=== PATIENT | male | born 1935 | race Caucasian/White ===

== ENCOUNTER → 2018-06-11 14:33 | Outpatient (CLI) | payer MEDICARE, OTHER, SELFPAY ==
--- NOTE | 2018-06-11 14:35 | DI.RAD.S_ITS ---
PROCEDURE: XR CHEST 2V INDICATIONS: cough TECHNIQUE: 2 views of the chest were acquired. COMPARISON: [facility], , CHEST 2 VIEW, 08/05/2012, 13:06. FINDINGS: Surgical changes and devices: Postoperative changes of the lumbar spine are not completely included or adequately evaluated. Lungs and pleura: There is a moderate-sized area of consolidation identified within the left lung base. This appears new since the prior study. No lobar consolidation, large effusion, or pneumothorax is evident. Mediastinum: Mediastinal contours are normal. Heart size is normal. Bones and chest wall: No suspicious bony abnormalities. Degenerative changes of the shoulders and spine are not well characterized. Soft tissues appear unremarkable. IMPRESSION: Left lower lobe pneumonia versus atelectasis. Dictated by: Andrzej Albarado M.D. on 06/11/2018 at 13:47 Approved by: Andrzej Albarado M.D. on 06/11/2018 at 13:48
== END ==
PROVIDERS: Family Provider Family Medicine; PCP Family Medicine; Visit Provider Physician Assistant
DX: R05 Cough (principal)
CPT/HCPCS: 71046

== ENCOUNTER 2018-11-17 07:54 | Emergency (ER) | payer MEDICARE, OTHER, SELFPAY ==
[2018-11-17] VITALS (11 sets, daily range): BP systolic 56–151; BP diastolic 34–77; PULSE 32–97; RESP 12–21; TEMP 36.6; O2SAT 93–100; BMI 22.4
--- NOTE | 2018-11-17 07:56 | ED.CHESTPAIN ---
HPI - Chest Pain General Chief Complaint: Chest Pain Stated Complaint: States he thinks he is having a heart attack Time Seen by Provider: 11/17/18 07:55 Source: patient and family Mode of arrival: ambulatory Limitations: no limitations History of Present Illness HPI narrative: 83-year-old male nonsmoker with history of left bundle branch block and left rotator cuff trouble presents with left anterior chest pain that radiates into his left arm that started while at rest 65 minutes prior to his arrival. He denies provocation or palliation. He states he took a full-dose aspirin but no other medications. He denies associated symptoms such as dizziness, weakness or lightheadedness. He denies diaphoresis, nausea or vomiting nor worsening with exertion. At maximum his pain was 10/10 and pressure-like, currently he is experiencing 5/10 discomfort. He denies any trouble with exertional discomfort or increasing fatigue lately. He mowed the lawn/meadow for 5 hours yesterday and went to bed feeling in his normal state of health. MD complaint: chest pain Onset (ago): minute(s) Duration: constant Onset: during rest Pain location: left chest Severity: severe Severity scale (1-10): 10 Quality: tightness Pain radiation: LUE Relieving factors: nothing Exacerbating factors: nothing Treatments prior to arrival chest pain: aspirin Related Data Home Medications Medication Instructions Recorded Confirmed allopurinol 100 mg PO DAILY #0 07/28/12 11/17/18 B Complex 1 tab PO DAILY #0 08/03/12 11/17/18 Vitamin C 1 tab PO DAILY #0 08/03/12 11/17/18 Vitamin D3 1 cap PO DAILY #0 08/03/12 11/17/18 omeprazole 40 mg PO DAILY #0 03/19/16 11/17/18 acetaminophen 500 mg PO PRN PRN #0 03/02/17 11/17/18 multivitamin [Multiple Vitamins] 1 tab PO DAILY #0 03/02/17 11/17/18 Allergies Allergy/AdvReac Type Severity Reaction Status Date / Time Sulfa (Sulfonamide Allergy Unknown RASH Verified 11/17/18 08:13 Antibiotics) trimethoprim Allergy Unknown RASH Verified 11/17/18 08:13 Review of Systems Constitutional Denies chills, Denies fever(s), Denies lethargy and Denies weakness Eyes Denies change in vision, Denies eye discharge, Denies irritation and Denies loss of vision ENT Ears, Nose, Mouth, and Throat: Denies change in voice, Denies neck pain and Denies sore throat Cardiovascular Reports chest pain, Denies irregular heart rhythm, Denies lightheadedness, Denies palpitations, Denies dyspnea, Denies dyspnea on exertion and Denies orthopnea Respiratory Denies cough, Denies dyspnea, Denies dyspnea on exertion and Denies wheezing Gastrointestinal Gastrointestinal: Denies abdominal pain, Denies change in bowel habits, Denies diarrhea, Denies nausea and Denies vomiting Genitourinary Denies hematuria, Denies flank pain, Denies urinary incontinence and Denies urinary urgency Musculoskeletal Denies neck pain Integumentary/Breasts Denies pruritus, Denies erythema, Denies rash and Denies wounds Neurologic Denies confusion, Denies loss of vision and Denies weakness Psychiatric Denies anxiety, Denies confusion, Denies depression, Denies homicidal ideation and Denies suicidal ideation Endocrine Denies palpitations Hematologic/Lymphatic Denies easy bruising Allergic/Immunologic Denies wheezing PFSH Social History Smoking Status: Never smoker Social History Smoking Status: Never smoker Exam Narrative Exam Narrative: GENERAL: 83-year-old male appears stated age, not obviously in any significant distress. HEAD: Atraumatic. Normocephalic. No temporal or scalp tenderness. EYES: Pupils equal round and reactive. Extraocular motions intact. No scleral icterus. No injection or drainage. ENT: Nose without bleeding, purulent drainage or septal hematoma. Throat without erythema, tonsillar hypertrophy or exudate. Uvula midline. Airway patent. NECK: Trachea midline. No JVD or lymphadenopathy. Supple, nontender, no meningeal signs. CARDIOVASCULAR: No worsening with palpation or use of left upper extremity Bradycardic but regular rhythm without murmurs, gallops, or rubs. RESPIRATORY: Clear to auscultation. Breath sounds equal bilaterally. No wheezes, rales, or rhonchi. GASTROINTESTINAL: Abdomen soft, non-tender, nondistended. No hepato-splenomegaly, or palpable masses. No guarding. EXTREMITIES: No clubbing, cyanosis, or edema. No joint tenderness, effusion, or edema noted. BACK: Nontender without deformity or crepitance. No flank tenderness. NEURO: AOx3. SKIN: No rash or erythema. Initial Vital Signs Initial Vital Signs: Vital Signs Temperature 98 F 11/17/18 07:54 Pulse Rate 60 11/17/18 07:54 Respiratory Rate 17 11/17/18 07:54 Blood Pressure 151/77 H 11/17/18 07:54 Pulse Oximetry 96 11/17/18 07:54 Course Orders Ordered: ED Orders 11/17/18 05:00 Hemoglobin and Hematocrit DAILY 11/17/18 07:59 EKG-12 Lead Stat 11/17/18 08:03 XR chest 1V Stat 11/17/18 08:05 B Type Natriuretic Peptide Stat Complete Blood Count AUTO DIFF Stat Comprehensive Metabolic Panel Stat Lipase Stat Partial Thromboplastin Time Stat Troponin & CK Cardiac Panel Stat 11/17/18 08:58 EKG-12 Lead Routine Discontinued Medications Atorvastatin Calcium (Lipitor) 40 mg PO NOW ONE Stop: 11/17/18 10:48 Last Admin: 11/17/18 11:00 Dose: 40 mg Atropine Sulfate (Atropine) 0.5 mg IV NOW ONE Stop: 11/17/18 10:50 Last Admin: 11/17/18 08:28 Dose: 0.5 mg Heparin Sodium (Porcine) (Heparin) 4,000 unit IV NOW ONE Stop: 11/17/18 09:22 Last Admin: 11/17/18 09:41 Dose: 4,000 unit Sodium Chloride (Normal Saline 0.9%) 1,000 mls @ 150 mls/hr IV CONT GEORGE Last Infusion: 11/17/18 11:05 Dose: 150 mls/hr Admin: 11/17/18 08:20 Dose: 150 mls/hr Heparin Sodium/Dextrose (Heparin Drip) 25,000 unit in 500 mls @ 17.527 mls/hr IV CONT GEORGE; Protocol Last Admin: 11/17/18 09:42 Dose: 12 units/kg/hr, 17.527 mls/hr Nitroglycerin (Nitrostat) 0.4 mg SL [id number] PRN PRN Reason: Pain, Severe (7-10) Last Admin: 11/17/18 08:19 Dose: 0.4 mg Reevaluation(s) Reevaluation #1: called to see patient after NG x1. Pain essentially gone but BP dropped from 150s to 50s. Pacer pads placed. Patient very symptomatic, nauseous and diaphoretic. HR had been largely in the 40s, but drops to 20s during this episode. Possible vagal, but given small bolus of fluid and atropine 0.5mg nonetheless. Episode passes quickly and symptoms improve. HR up to 40s initially but back downt o 30s. Pain gone. BP up to 90s. Time: 08:37 Consultations Consultation #1: call to [facility] for transfer Time: 08:48 Vital Signs - 8 hr 11/17/18 07:54 11/17/18 08:19 11/17/18 08:20 Temperature 98 F Pulse Rate 60 40 L 97 H Respiratory Rate 17 21 Blood Pressure 151/77 H 150/66 H Blood Pressure [Right Arm] 126/56 L Pulse Oximetry 96 93 11/17/18 08:24 11/17/18 08:28 11/17/18 08:30 Temperature Pulse Rate 32 L 44 L 32 L Respiratory Rate 16 12 20 Blood Pressure Blood Pressure [Right Arm] 56/45 L 74/34 L 89/45 L Pulse Oximetry 94 94 94 11/17/18 08:35 11/17/18 08:37 11/17/18 09:03 Temperature Pulse Rate 37 L 46 L 61 Respiratory Rate 15 19 21 Blood Pressure Blood Pressure [Right Arm] 92/51 L 98/47 L 122/57 L Pulse Oximetry 93 93 96 11/17/18 09:21 11/17/18 10:30 Temperature Pulse Rate 58 L 51 L Respiratory Rate 17 19 Blood Pressure Blood Pressure [Right Arm] 146/57 H 132/56 L Pulse Oximetry 100 98 MDM - Chest Pain Lab Data Result diagrams: 11/17/18 08:05 11/17/18 08:05 Lab Results 11/17/18 11/17/18 11/17/18 Range/Units 08:05 08:05 08:05 WBC 11.5 H (4.5-11.0) X10^3/uL RBC 4.63 (4.5-5.9) X10^6/uL Hgb 14.2 (13.5-17.5) g/dL Hct 43.4 (41-53) % MCV 93.8 (80-100) fL MCH 30.6 (26-34) PG MCHC 32.6 (30-36) % RDW 15.3 H (11.6-14.8) % Plt Count 152 (150-400) X10^3/uL Neut % (Auto) 85.8 H (50-75) % Lymph % (Auto) 6.9 L (25-40) % [place] % (Auto) 5.9 (3-14) % Eos % (Auto) 1.0 L (2-4) % Baso % (Auto) 0.4 (0-2) % Neut # (Auto) 9800 H (2979-6300) /uL Lymph # (Auto) 800 L (4247-9763) /uL [place] # (Auto) 700 (0-900) /uL Eos # (Auto) 100 (0-450) /uL Baso # (Auto) 0 (0-100) /uL APTT (26.4-36.2) SECONDS Sodium 139 (137-145) mmol/L Potassium 4.6 (3.4-5.1) mmol/L Chloride 101 (98-107) mmol/L Carbon Dioxide 28 (22-32) mmol/L BUN 28 H (9-20) mg/dL Creatinine 1.20 (0.66-1.25) mg/dL Estimated GFR 58.1 L (>60) mL/min BUN/Creatinine Ratio 23.3 H (6-22) Glucose 113 H (80-110) mg/dL Calcium 9.6 (8.4-10.2) mg/dL Total Bilirubin 0.8 (0.2-1.3) mg/dL AST 26 (17-59) IU/L ALT 30 (21-72) IU/L Alkaline Phosphatase 130 H (38-126) U/L Total Creatine Kinase 111 (55-170) U/L CK-MB (CK-2) 2.90 H (<2.37) ng/mL CK-MB (CK-2) Rel Index 2.6 (1.5-5.0) % Troponin I 0.062 H (0.01-0.034) ng/mL B-Natriuretic Peptide 512 H (<100) Total Protein 7.4 (6.3-8.2) g/dL Albumin 4.3 (3.5-5.0) g/dL Globulin 3.1 (1.7-4.1) g/dL Albumin/Globulin Ratio 1.4 (1.0-2.8) Lipase 20 L (23-300) U/L 06/19/19 Range/Units 08:05 WBC (4.5-11.0) X10^3/uL RBC (4.5-5.9) X10^6/uL Hgb (13.5-17.5) g/dL Hct (41-53) % MCV (80-100) fL MCH (26-34) PG MCHC (30-36) % RDW (11.6-14.8) % Plt Count (150-400) X10^3/uL Neut % (Auto) (50-75) % Lymph % (Auto) (25-40) % [place] % (Auto) (3-14) % Eos % (Auto) (2-4) % Baso % (Auto) (0-2) % Neut # (Auto) (1929-1590) /uL Lymph # (Auto) (9019-2679) /uL [place] # (Auto) (0-900) /uL Eos # (Auto) (0-450) /uL Baso # (Auto) (0-100) /uL APTT 36 (26.4-36.2) SECONDS Sodium (137-145) mmol/L Potassium (3.4-5.1) mmol/L Chloride (98-107) mmol/L Carbon Dioxide (22-32) mmol/L BUN (9-20) mg/dL Creatinine (0.66-1.25) mg/dL Estimated GFR (>60) mL/min BUN/Creatinine Ratio (6-22) Glucose (80-110) mg/dL Calcium (8.4-10.2) mg/dL Total Bilirubin (0.2-1.3) mg/dL AST (17-59) IU/L ALT (21-72) IU/L Alkaline Phosphatase (38-126) U/L Total Creatine Kinase (55-170) U/L CK-MB (CK-2) (<2.37) ng/mL CK-MB (CK-2) Rel Index (1.5-5.0) % Troponin I (0.01-0.034) ng/mL B-Natriuretic Peptide (<100) Total Protein (6.3-8.2) g/dL Albumin (3.5-5.0) g/dL Globulin (1.7-4.1) g/dL Albumin/Globulin Ratio (1.0-2.8) Lipase (23-300) U/L ECG Data Attestation: I personally reviewed and interpreted this ECG as follows: Prior ECG tracings: available for review Interpretation: Sinus bradycardia with left bundle branch block, rate 40 to. QRS 181, QTC 473. This is largely unchanged from an EKG the patient carries in his wallet which was performed at [facility] on 01/16/2014 Discharge Plan Departure Patient Disposition: [facility] Clinical Impression: Bradycardia Chest pain Qualifiers: Chest pain type: unspecified Qualified Code(s): R07.9 - Chest pain, unspecified Discharge Date/Time: 11/17/18 11:20 Interventions: ED Discharge Assessment Last Done: 11/17/18 11:19 Prescriptions: No Action allopurinol 100 MG tablet 100 mg PO DAILY Qty: 0 RF: 0 B Complex 1 tab PO DAILY Qty: 0 RF: 0 Vitamin C 1 tab PO DAILY Qty: 0 RF: 0 Vitamin D3 1 cap PO DAILY Qty: 0 RF: 0 omeprazole 40 MG capsule,delayed release(DR/EC) 40 mg PO DAILY Qty: 0 RF: 0 acetaminophen 500 MG tablet 500 mg PO PRN PRN (Reason: pain) Qty: 0 RF: 0 multivitamin [Multiple Vitamins] 1 EACH tablet 1 tab PO DAILY Qty: 0 RF: 0 Referrals: Biju Troncoso MD [Primary Care Provider] -
--- NOTE | 2018-11-17 08:03 | DI.RAD.S_ITS ---
PROCEDURE: XR CHEST 1V INDICATIONS: chest pain TECHNIQUE: One view of the chest was acquired. COMPARISON: [facility], CR, XR CHEST 2V, 06/11/2018, 14:32. FINDINGS: Surgical changes and devices: None. Lungs and pleura: There is increased density identified at the left lung base that partially obscures the diaphragm. This appearance is similar to the prior study and may represent a chronic process. No new areas of consolidation are present. There is no effusion or pneumothorax. Mediastinum: Mediastinal contours appear normal. Heart size is normal. There is aortic atherosclerosis. Bones and chest wall: No suspicious bony lesions. Overlying soft tissues appear unremarkable. IMPRESSION: Mild left basilar consolidation is similar to the previous examination and may represent atelectasis, scarring, or pneumonia. Please correlate clinically. Dictated by: Andrzej Albarado M.D. on 11/17/2018 at 8:41 Approved by: Andrzej Albarado M.D. on 11/17/2018 at 8:43
--- NOTE | 2018-11-17 08:12 | ED_ITS ---
HPI - Chest Pain General Chief Complaint: Chest Pain Stated Complaint: States he thinks he is having a heart attack Time Seen by Provider: 11/17/18 07:55 Source: patient and family Mode of arrival: ambulatory Limitations: no limitations History of Present Illness HPI narrative: 83-year-old male nonsmoker with history of left bundle branch block and left rotator cuff trouble presents with left anterior chest pain that radiates into his left arm that started while at rest 65 minutes prior to his arrival. He denies provocation or palliation. He states he took a full-dose aspirin but no other medications. He denies associated symptoms such as dizziness, weakness or lightheadedness. He denies diaphoresis, nausea or vomiting nor worsening with exertion. At maximum his pain was 10/10 and pressure-like, currently he is experiencing 5/10 discomfort. He denies any trouble with exertional discomfort or increasing fatigue lately. He mowed the lawn/meadow for 5 hours yesterday and went to bed feeling in his normal state of health. MD complaint: chest pain Onset (ago): minute(s) Duration: constant Onset: during rest Pain location: left chest Severity: severe Severity scale (1-10): 10 Quality: tightness Pain radiation: LUE Relieving factors: nothing Exacerbating factors: nothing Treatments prior to arrival chest pain: aspirin Related Data Home Medications Medication Instructions Recorded Confirmed allopurinol 100 mg PO DAILY #0 07/28/12 11/17/18 B Complex 1 tab PO DAILY #0 08/03/12 11/17/18 Vitamin C 1 tab PO DAILY #0 08/03/12 11/17/18 Vitamin D3 1 cap PO DAILY #0 08/03/12 11/17/18 omeprazole 40 mg PO DAILY #0 03/19/16 11/17/18 acetaminophen 500 mg PO PRN PRN #0 03/02/17 11/17/18 multivitamin [Multiple Vitamins] 1 tab PO DAILY #0 03/02/17 11/17/18 Allergies Allergy/AdvReac Type Severity Reaction Status Date / Time Sulfa (Sulfonamide Allergy Unknown RASH Verified 11/17/18 08:13 Antibiotics) trimethoprim Allergy Unknown RASH Verified 11/17/18 08:13 Review of Systems Constitutional Denies chills, Denies fever(s), Denies lethargy and Denies weakness Eyes Denies change in vision, Denies eye discharge, Denies irritation and Denies loss of vision ENT Ears, Nose, Mouth, and Throat: Denies change in voice, Denies neck pain and Denies sore throat Cardiovascular Reports chest pain, Denies irregular heart rhythm, Denies lightheadedness, Denies palpitations, Denies dyspnea, Denies dyspnea on exertion and Denies orthopnea Respiratory Denies cough, Denies dyspnea, Denies dyspnea on exertion and Denies wheezing Gastrointestinal Gastrointestinal: Denies abdominal pain, Denies change in bowel habits, Denies diarrhea, Denies nausea and Denies vomiting Genitourinary Denies hematuria, Denies flank pain, Denies urinary incontinence and Denies urinary urgency Musculoskeletal Denies neck pain Integumentary/Breasts Denies pruritus, Denies erythema, Denies rash and Denies wounds Neurologic Denies confusion, Denies loss of vision and Denies weakness Psychiatric Denies anxiety, Denies confusion, Denies depression, Denies homicidal ideation and Denies suicidal ideation Endocrine Denies palpitations Hematologic/Lymphatic Denies easy bruising Allergic/Immunologic Denies wheezing PFSH Social History Smoking Status: Never smoker Social History Smoking Status: Never smoker Exam Narrative Exam Narrative: GENERAL: 83-year-old male appears stated age, not obviously in any significant distress. HEAD: Atraumatic. Normocephalic. No temporal or scalp tenderness. EYES: Pupils equal round and reactive. Extraocular motions intact. No scleral icterus. No injection or drainage. ENT: Nose without bleeding, purulent drainage or septal hematoma. Throat without erythema, tonsillar hypertrophy or exudate. Uvula midline. Airway patent. NECK: Trachea midline. No JVD or lymphadenopathy. Supple, nontender, no meningeal signs. CARDIOVASCULAR: No worsening with palpation or use of left upper extremity Bradycardic but regular rhythm without murmurs, gallops, or rubs. RESPIRATORY: Clear to auscultation. Breath sounds equal bilaterally. No wheezes, rales, or rhonchi. GASTROINTESTINAL: Abdomen soft, non-tender, nondistended. No hepato- splenomegaly, or palpable masses. No guarding. EXTREMITIES: No clubbing, cyanosis, or edema. No joint tenderness, effusion, or edema noted. BACK: Nontender without deformity or crepitance. No flank tenderness. NEURO: AOx3. SKIN: No rash or erythema. Initial Vital Signs Initial Vital Signs: Vital Signs Temperature 98 F 11/17/18 07:54 Pulse Rate 60 11/17/18 07:54 Respiratory Rate 17 11/17/18 07:54 Blood Pressure 151/77 H 11/17/18 07:54 Pulse Oximetry 96 11/17/18 07:54 Course Orders Ordered: ED Orders 11/17/18 05:00 Hemoglobin and Hematocrit DAILY 11/17/18 07:59 EKG-12 Lead Stat 11/17/18 08:03 XR chest 1V Stat 11/17/18 08:05 B Type Natriuretic Peptide Stat Complete Blood Count AUTO DIFF Stat Comprehensive Metabolic Panel Stat Lipase Stat Partial Thromboplastin Time Stat Troponin & CK Cardiac Panel Stat 11/17/18 08:58 EKG-12 Lead Routine Discontinued Medications Atorvastatin Calcium (Lipitor) 40 mg PO NOW ONE Stop: 11/17/18 10:48 Last Admin: 11/17/18 11:00 Dose: 40 mg Atropine Sulfate (Atropine) 0.5 mg IV NOW ONE Stop: 11/17/18 10:50 Last Admin: 11/17/18 08:28 Dose: 0.5 mg Heparin Sodium (Porcine) (Heparin) 4,000 unit IV NOW ONE Stop: 11/17/18 09:22 Last Admin: 11/17/18 09:41 Dose: 4,000 unit Sodium Chloride (Normal Saline 0.9%) 1,000 mls @ 150 mls/hr IV CONT GEORGE Last Infusion: 11/17/18 11:05 Dose: 150 mls/hr Admin: 11/17/18 08:20 Dose: 150 mls/hr Heparin Sodium/Dextrose (Heparin Drip) 25,000 unit in 500 mls @ 17.527 mls/hr IV CONT GEORGE; Protocol Last Admin: 11/17/18 09:42 Dose: 12 units/kg/hr, 17.527 mls/hr Nitroglycerin (Nitrostat) 0.4 mg SL [id number] PRN PRN Reason: Pain, Severe (7-10) Last Admin: 11/17/18 08:19 Dose: 0.4 mg Reevaluation(s) Reevaluation #1: called to see patient after NG x1. Pain essentially gone but BP dropped from 150s to 50s. Pacer pads placed. Patient very symptomatic, nauseous and diaphoretic. HR had been largely in the 40s, but drops to 20s during this episode. Possible vagal, but given small bolus of fluid and atropine 0.5mg nonetheless. Episode passes quickly and symptoms improve. HR up to 40s initially but back downt o 30s. Pain gone. BP up to 90s. Time: 08:37 Consultations Consultation #1: call to [facility] for transfer Time: 08:48 Vital Signs - 8 hr 11/17/18 07:54 11/17/18 08:19 11/17/18 08:20 Temperature 98 F Pulse Rate 60 40 L 97 H Respiratory Rate 17 21 Blood Pressure 151/77 H 150/66 H Blood Pressure [Right Arm] 126/56 L Pulse Oximetry 96 93 11/17/18 08:24 11/17/18 08:28 11/17/18 08:30 Temperature Pulse Rate 32 L 44 L 32 L Respiratory Rate 16 12 20 Blood Pressure Blood Pressure [Right Arm] 56/45 L 74/34 L 89/45 L Pulse Oximetry 94 94 94 11/17/18 08:35 11/17/18 08:37 11/17/18 09:03 Temperature Pulse Rate 37 L 46 L 61 Respiratory Rate 15 19 21 Blood Pressure Blood Pressure [Right Arm] 92/51 L 98/47 L 122/57 L Pulse Oximetry 93 93 96 11/17/18 09:21 11/17/18 10:30 Temperature Pulse Rate 58 L 51 L Respiratory Rate 17 19 Blood Pressure Blood Pressure [Right Arm] 146/57 H 132/56 L Pulse Oximetry 100 98 MDM - Chest Pain Lab Data Result diagrams: 11/17/18 08:05 11/17/18 08:05 Lab Results 11/17/18 11/17/18 11/17/18 Range/Units 08:05 08:05 08:05 WBC 11.5 H (4.5-11.0) X10^3/uL RBC 4.63 (4.5-5.9) X10^6/uL Hgb 14.2 (13.5-17.5) g/dL Hct 43.4 (41-53) % MCV 93.8 (80-100) fL MCH 30.6 (26-34) PG MCHC 32.6 (30-36) % RDW 15.3 H (11.6-14.8) % Plt Count 152 (150-400) X10^3/uL Neut % (Auto) 85.8 H (50-75) % Lymph % (Auto) 6.9 L (25-40) % [place] % (Auto) 5.9 (3-14) % Eos % (Auto) 1.0 L (2-4) % Baso % (Auto) 0.4 (0-2) % Neut # (Auto) 9800 H (0218-2780) /uL Lymph # (Auto) 800 L (2337-9323) /uL [place] # (Auto) 700 (0-900) /uL Eos # (Auto) 100 (0-450) /uL Baso # (Auto) 0 (0-100) /uL APTT (26.4-36.2) SECONDS Sodium 139 (137-145) mmol/L Potassium 4.6 (3.4-5.1) mmol/L Chloride 101 (98-107) mmol/L Carbon Dioxide 28 (22-32) mmol/L BUN 28 H (9-20) mg/dL Creatinine 1.20 (0.66-1.25) mg/dL Estimated GFR 58.1 L (>60) mL/min BUN/Creatinine Ratio 23.3 H (6-22) Glucose 113 H (80-110) mg/dL Calcium 9.6 (8.4-10.2) mg/dL Total Bilirubin 0.8 (0.2-1.3) mg/dL AST 26 (17-59) IU/L ALT 30 (21-72) IU/L Alkaline Phosphatase 130 H (38-126) U/L Total Creatine Kinase 111 (55-170) U/L CK-MB (CK-2) 2.90 H (<2.37) ng/mL CK-MB (CK-2) Rel Index 2.6 (1.5-5.0) % Troponin I 0.062 H (0.01-0.034) ng/mL B-Natriuretic Peptide 512 H (<100) Total Protein 7.4 (6.3-8.2) g/dL Albumin 4.3 (3.5-5.0) g/dL Globulin 3.1 (1.7-4.1) g/dL Albumin/Globulin Ratio 1.4 (1.0-2.8) Lipase 20 L (23-300) U/L 06/19/19 Range/Units 08:05 WBC (4.5-11.0) X10^3/uL RBC (4.5-5.9) X10^6/uL Hgb (13.5-17.5) g/dL Hct (41-53) % MCV (80-100) fL MCH (26-34) PG MCHC (30-36) % RDW (11.6-14.8) % Plt Count (150-400) X10^3/uL Neut % (Auto) (50-75) % Lymph % (Auto) (25-40) % [place] % (Auto) (3-14) % Eos % (Auto) (2-4) % Baso % (Auto) (0-2) % Neut # (Auto) (6136-6253) /uL Lymph # (Auto) (0649-6952) /uL [place] # (Auto) (0-900) /uL Eos # (Auto) (0-450) /uL Baso # (Auto) (0-100) /uL APTT 36 (26.4-36.2) SECONDS Sodium (137-145) mmol/L Potassium (3.4-5.1) mmol/L Chloride (98-107) mmol/L Carbon Dioxide (22-32) mmol/L BUN (9-20) mg/dL Creatinine (0.66-1.25) mg/dL Estimated GFR (>60) mL/min BUN/Creatinine Ratio (6-22) Glucose (80-110) mg/dL Calcium (8.4-10.2) mg/dL Total Bilirubin (0.2-1.3) mg/dL AST (17-59) IU/L ALT (21-72) IU/L Alkaline Phosphatase (38-126) U/L Total Creatine Kinase (55-170) U/L CK-MB (CK-2) (<2.37) ng/mL CK-MB (CK-2) Rel Index (1.5-5.0) % Troponin I (0.01-0.034) ng/mL B-Natriuretic Peptide (<100) Total Protein (6.3-8.2) g/dL Albumin (3.5-5.0) g/dL Globulin (1.7-4.1) g/dL Albumin/Globulin Ratio (1.0-2.8) Lipase (23-300) U/L ECG Data Attestation: I personally reviewed and interpreted this ECG as follows: Prior ECG tracings: available for review Interpretation: Sinus bradycardia with left bundle branch block, rate 40 to. QRS 181, QTC 473. This is largely unchanged from an EKG the patient carries in his wallet which was performed at [facility] on 01/16/2014 Discharge Plan Departure Patient Disposition: [facility] Clinical Impression: Bradycardia Chest pain Qualifiers: Chest pain type: unspecified Qualified Code(s): R07.9 - Chest pain, unspecified Discharge Date/Time: 11/17/18 11:20 Interventions: ED Discharge Assessment Last Done: 11/17/18 11:19 Prescriptions: No Action allopurinol 100 MG tablet 100 mg PO DAILY Qty: 0 RF: 0 B Complex 1 tab PO DAILY Qty: 0 RF: 0 Vitamin C 1 tab PO DAILY Qty: 0 RF: 0 Vitamin D3 1 cap PO DAILY Qty: 0 RF: 0 omeprazole 40 MG capsule,delayed release(DR/EC) 40 mg PO DAILY Qty: 0 RF: 0 acetaminophen 500 MG tablet 500 mg PO PRN PRN (Reason: pain) Qty: 0 RF: 0 multivitamin [Multiple Vitamins] 1 EACH tablet 1 tab PO DAILY Qty: 0 RF: 0 Referrals: Biju Troncoso MD [Primary Care Provider] -
[2018-11-17] MEDS: NITROGLYCERIN 0.4 MG SL TAB SL (08:19)
[2018-11-17] MEDS: SODIUM CHLORIDE 0.9% 1,000 ML 150 ML IV (08:20)
[2018-11-17 08:26] LABS: Add Manual Diff / Slide Review NO; Basophils Absolute Auto 0 /uL (0-100); Basophils Percent Auto 0.4 % (0-2); Eosinophils Absolute Auto 100 /uL (0-450); Hematocrit 43.4 % (41-53); Hemoglobin 14.2 g/dL (13.5-17.5); Lymphocytes Absolute Auto 800 /uL (1100-4500); Lymphocytes Percent Auto 6.9 % (25-40); Mean Corpuscular HGB Conc 32.6 % (30-36); Mean Corpuscular Hemoglobin 30.6 PG (26-34); Mean Corpuscular Volume 93.8 fL (80-100); Monocytes Absolute Auto 700 /uL (0-900); Monocytes Percent Auto 5.9 % (3-14); Neutrophils Absolute Auto 9800 /uL (1500-7000); Neutrophils Percent Auto 85.8 % (50-75); Platelet Count 152 X10^3/uL (150-400); Red Blood Cell Count 4.63 X10^6/uL (4.5-5.9); Red Cell Distribution Width 15.3 % (11.6-14.8); White Blood Cell Count 11.5 X10^3/uL (4.5-11.0)
[2018-11-17] MEDS: ATROPINE 1 MG/10 ML SYRINGE 0.5 MG IV (08:28)
--- NOTE | 2018-11-17 08:29 | PC.NURSE ---
Patient hypotensive after 1 nitro SL. Patient diaphoretic and increase dizziness. provider called to bedside. Patient placed on pads. 0.5mg Atropine administered per verbal order from MD.
[2018-11-17 08:31] LABS: Alanine Aminotransferase 30 IU/L (21-72); Albumin 4.3 g/dL (3.5-5.0); Albumin Globulin Ratio 1.4 (1.0-2.8); Alkaline Phosphatase 130 U/L (38-126); Aspartate Aminotransferase 26 IU/L (17-59); BUN Creatinine Ratio 23.3 (6-22); Bilirubin Total 0.8 mg/dL (0.2-1.3); Blood Urea Nitrogen 28 mg/dL (9-20); Calcium 9.6 mg/dL (8.4-10.2); Carbon Dioxide 28 mmol/L (22-32); Chloride 101 mmol/L (98-107); Creatine Kinase 111 U/L (55-170); Estimated Glomerular Filt Rate 58.1 mL/min (>60); Globulin 3.1 g/dL (1.7-4.1); Glucose 113 mg/dL (80-110); HEMOLYSIS < 15 (0-50); Lipase 20 U/L (23-300); Potassium 4.6 mmol/L (3.4-5.1); Sodium 139 mmol/L (137-145); Total Protein 7.4 g/dL (6.3-8.2)
[2018-11-17 08:40] LABS: B Type Natriuretic Peptide 512 (<100)
[2018-11-17 08:42] LABS: Troponin I 0.062 ng/mL (0.01-0.034)
[2018-11-17 08:46] LABS: CKMB % Relative Index 2.6 % (1.5-5.0)
[2018-11-17] MEDS: HEPARIN 5,000 UNIT/ML VIAL 4000 UNIT IV (09:41)
[2018-11-17] MEDS: HEPARIN DRIP 25,000 UNIT/500 ML IV.SOLN 17.527 UNIT IV (09:42)
[2018-11-17 09:58] LABS: PTT Partial Thromboplastin Tim 36 SECONDS (26.4-36.2)
[2018-11-17] MEDS: ATORVASTATIN 20 MG TABLET 40 MG PO (11:00)
--- NOTE | 2019-01-07 11:57 | PC.NURSE ---
Per Radha ZACARIAS, Pt had Heparin gtt continued upon transfer to [facility] on 11/17/2018 at 1117
== END 2018-11-17 11:20 | disposition short-term general hospital (02) ==
LOC: ED 09:03
PROVIDERS: Emergency Provider Emergency Medicine; PCP Family Medicine
DX: R07.9 Chest pain, unspecified (principal)
CPT/HCPCS: 36591; 71045; 80053; 82550; 82553; 83690; 83880; 84484; 85025; 85730; 93005; 96361; 96365; 96366; 96375; 96376; 99285; J0461; J1644

== ENCOUNTER 2019-05-18 10:00 | Outpatient (RCR) | payer MEDICARE, OTHER, SELFPAY | END 2019-05-19 09:32 | LOC: CAR 10:00 | PROVIDERS: PCP Family Medicine; Visit Provider Family Medicine | DX: I21.3 ST elevation (STEMI) myocardial infarction of unspecified site (principal) | CPT/HCPCS: 93797; 93798 ==

== ENCOUNTER 2020-09-23 14:28 | Emergency (ER) | payer MEDICARE, OTHER, SELFPAY ==
[2020-09-23 14:28] VITALS: BP 180/84; PULSE 83; RESP 16; TEMP 36.5; O2SAT 98; BMI 21.4
--- NOTE | 2020-09-23 14:31 | DI.RAD.S_ITS ---
PROCEDURE: XR HIP W PEL IF DONE LT 2V INDICATIONS: Left hip pain after fall TECHNIQUE: AP pelvis with lateral view(s) of the left hip(s). COMPARISON: None. FINDINGS: Bones: No fractures or dislocations. Pelvic ring appears intact. No suspicious bony lesions. There is moderate superior joint space narrowing seen of both hips, with associated remodeling changes with subchondral sclerosis and osteophyte formation. The lumbar postoperative hardware and degenerative changes are seen. There is lucency seen adjacent to the left L5 screw. Soft tissues: The visualized bowel gas pattern is normal. No suspicious soft tissue calcifications. Left-sided pelvic clips can be seen. IMPRESSION: No jimbo fracture or dislocation can be seen by plain film. If there is point tenderness (or other clinical suspicion for a fracture not seen on these images) please consider a dedicated CT for further evaluation. Lumbar fixation hardware seen, with lucency adjacent to the left L5 screw, which is consistent with loosening. Dictated by: Elie Polanco M.D. on 09/23/2020 at 14:05 Approved by: Elie Polanco M.D. on 09/23/2020 at 14:06
--- NOTE | 2020-09-23 14:41 | ED_ITS ---
HPI - General Adult General Chief complaint: Extremity Injury, Lower Stated complaint: think I have a fractured left hip, fell 09/17/20 Time Seen by Provider: 09/23/20 14:31 Source: patient Mode of arrival: Wheelchair Limitations: no limitations History of Present Illness HPI narrative: Patient is an 85-year-old male. He is on anticoagulation who is here for evaluation of left hip pain. He states that approximately 1 week ago he was getting off of his tractor and hit his left hip. He reports no other injury from the event. He did not hit his head. He has no neck pain. He has been ambulatory. He describes pain in his lower back and outside of his left hip. He has tried Tylenol for his symptoms prior to arrival. He is here for continued pain and concern about a fracture. Related Data Home Medications Medication Instructions Recorded Confirmed allopurinol 100 mg PO DAILY #0 07/28/12 11/17/18 B Complex 1 tab PO DAILY #0 08/03/12 11/17/18 Vitamin C 1 tab PO DAILY #0 08/03/12 11/17/18 Vitamin D3 1 cap PO DAILY #0 08/03/12 11/17/18 omeprazole 40 mg PO DAILY #0 03/19/16 11/17/18 acetaminophen 500 mg PO PRN PRN #0 03/02/17 11/17/18 multivitamin [Multiple Vitamins] 1 tab PO DAILY #0 03/02/17 11/17/18 Previous Rx's Medication Instructions Recorded tramadol [Ultram] 50 mg PO Q6H PRN #10 tab 09/23/20 Allergies Allergy/AdvReac Type Severity Reaction Status Date / Time Sulfa (Sulfonamide Allergy Unknown RASH Verified 09/23/20 14:41 Antibiotics) trimethoprim Allergy Unknown RASH Verified 09/23/20 14:41 Review of Systems Constitutional Constitutional: Denies fatigue, Denies fever(s) and Denies headache(s) ENT Ears, Nose, Mouth, and Throat: Denies headache(s) Cardiovascular Cardiovascular: Denies chest pain and Denies dyspnea Respiratory Respiratory: Denies dyspnea Gastrointestinal Gastrointestinal: Denies abdominal pain, Denies nausea and Denies vomiting Musculoskeletal Comments: Left hip pain Integumentary/Breasts Skin/Breast: Denies lesions and Denies rash Neurologic Neurologic: Denies behavioral changes and Denies headache(s) Psychiatric Psychiatric: Denies behavioral changes Endocrine Endocrine: Denies fatigue Hematologic/Lymphatic On Anticoagulants: Yes Allergic/Immunologic Allergic/Immunologic: Denies urticaria Patient History Medical History Abrasion of forehead Contusion of left hand Elevated blood-pressure reading without diagnosis of hypertension GERD (gastroesophageal reflux disease) Gout Psoriasis Vomiting Surgical History S/P lumbar fusion Social History Smoking Status: Never smoker Smoking Status: Never smoker Substance Use Type: does not use Exam Initial Vital Signs Initial Vital Signs: Vital Signs Temperature 97.7 F 09/23/20 14:28 Pulse Rate 83 09/23/20 14:28 Respiratory Rate 16 09/23/20 14:28 Blood Pressure 180/84 H 09/23/20 14:28 Pulse Oximetry 98 09/23/20 14:28 Const General: cooperative, comfortable and well developed HENMT Head: normal to inspection and normocephalic Resp Effort & Inspection: normal respiratory effort Cardio Rate: regular rate GI Inspection: non-distended Skin Lesions: no lesions Rashes: no rashes Neuro General: patient alert and patient awake Cognition: normal cognition Speech: speech normal Extrem General: normal to inspection and capillary refill normal Other: Left knee and left elbow unremarkable. Patient able to flex and extend and internally and externally rotate of the left hip without much discomfort. He does have some tenderness along the greater trochanter. On the left Psych Appearance: grossly normal and well kempt Course Orders Ordered: ED Orders 09/23/20 14:31 XR hip w pel if done LT 2V Stat Vital Signs Vital signs: Vital Signs - 8 hr 09/23/20 14:28 Temperature 97.7 F Pulse Rate 83 Respiratory Rate 16 Blood Pressure 180/84 H Pulse Oximetry 98 Medical Decision Making Imaging Data Extremity x-ray #1: Radiologist's Impression: [address] [id number] ReportSigned Patient: Bj Simon [facility]#: [id number]: 7Acct:[id number]/Sex: 85 / MDate of Service: 09/23/20Loc: EDAccession Number: [id number] Procedure: XR hip w pel if done LT 2V Ordering Provider: Marlon Kaur D.O. PROCEDURE: XR HIP W PEL IF DONE LT 2V INDICATIONS: Left hip pain after fall TECHNIQUE: AP pelvis with lateral view(s) of the left hip(s). COMPARISON: None. FINDINGS: Bones: No fractures or dislocations. Pelvic ring appears intact. No suspicious bony lesions. There is moderate superior joint space narrowing seen of both hips, with associated remodeling changes with subchondral sclerosis and osteophyte formation. The lumbar postoperative hardware and degenerative changes are seen. There is lucency seen adjacent to the left L5 screw. Soft tissues: The visualized bowel gas pattern is normal. No suspicious soft tissue calcifications. Left-sided pelvic clips can be seen. IMPRESSION: No jimbo fracture or dislocation can be seen by plain film. If there is point tenderness (or other clinical suspicion for a fracture not seen on these images) please consider a dedicated CT for further evaluation. Lumbar fixation hardware seen, with lucency adjacent to the left L5 screw, which is consistent with loosening. Dictated by: Elie Polanco M.D. on 09/23/2020 at 14:05 Approved by: Elie Polanco M.D. on 09/23/2020 at 14:06 [facility] Narrative Medical decision making narrative: Patient has had left hip pain since this fall 1 week ago and has been ambulatory. The x-rays today showed no acute fracture. He has no bruising over the area. I feel we can hold on a CT scan for now. He actually has a follow-up with orthopedics in 10 days. We did discuss conservative measures. He was given return precautions and follow-up instructions. He expressed understanding and agreement. Discharge Plan Departure Patient Disposition: Home Clinical Impression: Acute pain of left hip Instructions: DI for Hip Pain Activity Restrictions/Additional Instructions: The x-rays do not show any signs of fracture. Take all the medication as directed. You can walk as tolerated and I encourage you to do so to your tolerance. Keep all of your scheduled medical appointments. Return to the emergency department for any new or worsening symptoms Prescriptions: New tramadol [Ultram] 50 mg tablet 50 mg PO Q6H PRN (Reason: pain) Qty: 10 RF: 0 No Action allopurinol 100 MG tablet 100 mg PO DAILY Qty: 0 RF: 0 B Complex 1 tab PO DAILY Qty: 0 RF: 0 Vitamin C 1 tab PO DAILY Qty: 0 RF: 0 Vitamin D3 1 cap PO DAILY Qty: 0 RF: 0 omeprazole 40 MG capsule,delayed release(DR/EC) 40 mg PO DAILY Qty: 0 RF: 0 acetaminophen 500 MG tablet 500 mg PO PRN PRN (Reason: pain) Qty: 0 RF: 0 multivitamin [Multiple Vitamins] 1 EACH tablet 1 tab PO DAILY Qty: 0 RF: 0 Referrals: Erica Farris MD [Primary Care Provider] -
== END 2020-09-23 15:45 | disposition home or self-care (01) ==
PROVIDERS: Emergency Provider Emergency Medicine; PCP Family Medicine
DX: M25.552 Pain in left hip (principal)
CPT/HCPCS: 73502; 99283

== ENCOUNTER 2020-10-30 07:49 | Day surgery (SDC) | payer MEDICARE, OTHER, SELFPAY ==
[2020-10-23 15:01] VITALS: BMI 20.9
[2020-10-30] VITALS (9 sets, daily range): BP systolic 115–154; BP diastolic 60–78; PULSE 49–59; RESP 9–16; TEMP 36.2–37.3; O2SAT 95–100; BMI 20.9
[2020-10-30 08:24] LABS: COVID19 -Nasal RAPID Negative (Negative)
[2020-10-30] MEDS: LACTATED RINGERS 1,000 ML 100 ML IV (08:40)
[2020-10-30] MEDS: ACETAMINOPHEN 325 MG TABLET 975 MG PO (08:42)
[2020-10-30] MEDS: GABAPENTIN 300 MG CAPSULE PO (08:42)
--- NOTE | 2020-10-30 09:00 | PM.PREOP ---
Pre-operative Note Interval Note History & Physical reviewed/Exam performed by Physician: Yes Changes to H&P: No
[2020-10-30] MEDS: CEFAZOLIN 1 GM VIAL 2 GM IV (09:43)
--- NOTE | 2020-10-30 09:52 | SUR.OPER ---
Supine on padded OR bed, head on pillow, arms secured on padded arm boards at <90 degrees abduction, gel pads under bilateral arms, legs uncrossed, safety belt at thigh, tape over blanket over lower legs, pillow under knees, gel pad under bilateral heels.
[2020-10-30] MEDS: BUPIVACAINE 0.25% (PF) VIAL 30 ML INJ (09:57)
--- NOTE | 2020-10-30 11:12 | PM.OP.1 ---
Operative Date/Time/Diagnoses Date of procedure: 10/30/20 Time of procedure: 11:12 Pre-op diagnosis: Recurrent left inguinal hernia Post-op diagnosis: same Procedure & Clinicians Procedure: Open left inguinal hernia repair of recurrent hernia Same procedure as scheduled: Yes Indications: Recurrent left inguinal hernia Surgeon: Enio Thao Anesthesia Type: General Operative Notes Findings: Direct floor defect, no obvious indirect hernia. Cord structures fused together with Specimen(s): none sent Estimated Blood Loss (mL): 20 Procedure in detail: The patient was placed supine on the table and bilateral lower extremity compression devices were applied. Anesthesia was induced they were intubated with an LMA and received 2g of Ancef. A time-out was performed. They were prepped and draped in sterile fashion. The left external inguinal ring and the anterior superior iliac crest were identified and marked. 1 finger breath above the inguinal ligament the skin was infiltrated with 0.25% bupivacaine. The skin incision was made here and the subcutaneous tissues were divided with electrocautery exposing the external oblique aponeurosis which was then opened along the direction of its fibers. Using blunt dissection the internal oblique aporneurosis was from the external oblique upper leaflet which was difficult given the extensive scar tissue from his prior operation. A direct floor defect was identified and it was reduced into the abdomen. A plug of mesh was then placed into the floor defect and secured into place using Ethibond to the shelving edge. The internal oblique aporneuorsis was approximated to the inguinal ligament with Ethibond suture to reapproximate the floor. The cremasteric fibers surrounding the cord were inspected the cord structures were extensively fused together there was no evidence of an indirect hernia. No attempt to remove the prior mesh was made. I selected a 7x 15 cm lightweight Pro Loop hernia mesh. The inferior medial aspect of the mesh was anchored to insertion of the rectus muscle to the pubic tubercle such that there was approximately 2 cm of tubercle overlap with Ethibond and then was run continuously along the inferior edge of the mesh to the shelving edge of the inguinal ligament. Interrupted 3 0 Vicryl suture was used to anchor the superior aspect of the mesh to the conjoined tendon in several places. The tails were trimmed off and it was not wrapped around the cord given the degree of scarring however the floor of the repair was reinforced with the mesh. The repair was checked for hemostasis. The wound was irrigated with sterile saline. The external oblique aponeurosis was reapproximated in a running fashion using 3 0 Vicryl. The subcutaneous tissues were reapproximated with 3 0 Vicryl skin closed with 4 0 Monocryl followed by the application of Dermabond. At the end of the operation I ensured that both testicles were within the scrotum. The sponge instrument count at the end operation was correct. The patient emerged from anesthesia was extubated and transferred to the postoperative care unit in stable condition. A total of 30 ml of of 0.25% bupivicaine was used to infiltrate the skin. Post-operative Condition: stable Disposition: same day surgery
[2020-10-30] MEDS: OXYCODONE IR 5 MG TABLET PO (11:36)
--- NOTE | 2020-10-30 12:15 | SUR.PHASEII ---
1200 called to check on . Informed her of medications give, Rx to [facility] and that the instructions and when to restart blood thinners was highlighted for their convenience. She was appreciative
== END 2020-10-30 12:04 | disposition home or self-care (01) ==
PROVIDERS: PCP Family Medicine; Referring Provider Family Medicine; Visit Provider Surgery
PROC: (CPT 49505; principal; 2020-10-30 09:15)
DX: K40.91 Unilateral inguinal hernia, without obstruction or gangrene, recurrent (principal); I48.91 Unspecified atrial fibrillation; Z79.01 Long term (current) use of anticoagulants; G30.9 Alzheimer's disease, unspecified; F02.80 Dementia in other diseases classified elsewhere, unspecified severity, without behavioral disturbance, psychotic disturbance, mood disturbance, and anxiety; K21.9 Gastro-esophageal reflux disease without esophagitis; I10 Essential (primary) hypertension; Z20.822 Contact with and (suspected) exposure to COVID-19
CPT/HCPCS: 49505; 87635; C1781; J0690; J1100; J2405; J2704; J3010

== ENCOUNTER 2021-05-10 09:54 | Emergency (ER) | payer MEDICARE, OTHER, SELFPAY ==
[2021-05-10 10:29] VITALS: BP 140/72; PULSE 58; RESP 16; TEMP 36.7; O2SAT 94
--- NOTE | 2021-05-10 10:32 | DI.RAD.S_ITS ---
PROCEDURE: XR KNEE RT 3V INDICATIONS: right knee pain s/p fall TECHNIQUE: 3 views of the knee were acquired. COMPARISON: None. FINDINGS: Bones: No fractures or dislocations. No suspicious bony lesions. Tricompartmental arthritic changes as well as chondrocalcinosis. Soft tissues: Mild joint effusion. No suspicious soft tissue calcifications. IMPRESSION: Significant arthritic change. No visualized acute fracture or dislocation. However, if clinical concern and/or pain persist, short interval imaging followup in 7-10 days is recommended, as occult injury cannot be definitively excluded. Dictated by: Shaniqua Vasquez M.D. on 05/10/2021 at 11:23 Approved by: Shaniqua Vasquez M.D. on 05/10/2021 at 11:24
--- NOTE | 2021-05-10 10:33 | DI.RAD.S_ITS ---
PROCEDURE: XR LUMBAR SPINE 2-3V INDICATIONS: fall lower back pain TECHNIQUE: 3 views of the lumbar spine were acquired. COMPARISON: [facility], CR, XR LUMBAR SPINE 2 OR 3 VIEWS, 01/27/2018, 10:06. [facility], CR, L-SPINE 2-3 VIEWS, 03/10/2017, 15:27. FINDINGS: Bones: 5 [id number] vertebrae are present. There is multilevel retrolisthesis, unchanged. Posterior fusion from L2 through L5 with intervertebral spacers are present. Severe foraminal narrowing is noted at L5-S1. Multilevel anterior osteophytes are present. No vertebral body compression fractures. No suspicious bony lesions. Soft tissues: Overlying bowel gas pattern is normal. No suspicious soft tissue calcifications. IMPRESSION: Degenerative postsurgical changes as above. No visualized acute fracture or dislocation. However, if clinical concern and/or pain persist, short interval imaging followup in 7-10 days is recommended, as occult injury cannot be definitively excluded. Dictated by: Shaniqua Vasquze M.D. on 05/10/2021 at 11:24 Approved by: Shaniqua Vasquez M.D. on 05/10/2021 at 11:25
--- NOTE | 2021-05-10 10:33 | DI.RAD.S_ITS ---
PROCEDURE: XR HIP W PEL IF DONE LT 2V INDICATIONS: fall left hip pain TECHNIQUE: AP pelvis with lateral view(s) of the left hip(s). COMPARISON: [facility], , XR HIP W PEL IF DONE LT 2V, 09/23/2020, 14:38. FINDINGS: Bones: No fractures or dislocations. Lower lumbar fusion with lucency surrounding the L5 screw, unchanged. Pelvic ring appears intact. No suspicious bony lesions. Soft tissues: The visualized bowel gas pattern is normal. No suspicious soft tissue calcifications. IMPRESSION: 1. No visualized acute fracture or dislocation. However, if clinical concern and/or pain persist, short interval imaging followup in 7-10 days is recommended, as occult injury cannot be definitively excluded. 2. Periprosthetic loosening surrounding the L5 screw as above suggestive of loosening, unchanged. Dictated by: Shaniqua Vasquez M.D. on 05/10/2021 at 11:21 Approved by: Shaniqua Vasquez M.D. on 05/10/2021 at 11:23
--- NOTE | 2021-05-10 11:59 | PC.NURSE ---
Arrives with right knee brace in place. Reports some relief of discomfort. Has not had anything for pain today, had a tylenol 3 last night. Patient reports some mild discomofrt in left hip and lower back. History of l4/5 fusion. Denies C-spine tenderness, denies hitting his head. Patient on blood thinners. Scab present to left forehead from dermatology procedure.
--- NOTE | 2021-05-10 12:06 | ED.LOWEXIN ---
HPI - Extremity Injury (Lower) <Kitty Humphries GENETICS NURSE - Last Filed: 05/10/21 14:15> General Chief Complaint: Extremity Injury, Lower Stated Complaint: RT KNEE PAIN POST FALL AND LT HIP Time Seen by Provider: 05/10/21 11:56 Source: patient Mode of arrival: Family Vehicle History of Present Illness HPI Narrative: 85-year-old male presents to the emergency department after a fall he had yesterday at 4:00 p.m.. Patient reports that he fell backwards onto his buttocks, injuring his right knee in a hyperflexion movement. Patient reports that he has had some swelling and pain in his right knee, mild pain in his right hip which has dissipated, and mild low back pain which he thinks is chronic in nature. Patient has a history of footdrop in uses bilateral foot braces for this, he also ambulates with a walker at home and reports that his range of motion in his right knee is somewhat limited 50%. He is able to flex and extend without difficulty. He is able to bear weight reports that he has midline right knee pain and some minor medial knee pain over the MCL. Patient requests Tylenol threes for his pain and reports that Tylenol at home was not adequate. Related Data Home Medications Medication Instructions Recorded Confirmed allopurinol 100 mg tablet 100 mg PO DAILY #0 07/28/12 11/19/20 ascorbic acid (vitamin C) 1,000 mg 1,000 mg PO DAILY #0 08/03/12 11/19/20 tablet (Vitamin C) cholecalciferol (vitamin D3) 125 125 mcg PO DAILY #0 08/03/12 11/19/20 mcg (5,000 unit) tablet (Vitamin D3) cyanocobalamin (vitamin B-12) 2,500 mcg SUBLINGUAL DAILY #0 08/03/12 11/19/20 2,500 mcg sublingual tablet (Vitamin B-12) apixaban 5 mg tablet (Eliquis) 5 mg PO DAILY 10/11/20 11/19/20 aspirin 81 mg tablet,delayed 81 mg PO DAILY 10/11/20 11/19/20 release (Adult Aspirin Regimen) atorvastatin 40 mg tablet 40 mg PO DAILY 10/11/20 11/19/20 elderberry fruit 200 mg capsule 100 mg PO DAILY 10/11/20 11/19/20 losartan 25 mg tablet 25 mg PO DAILY 10/11/20 11/19/20 pantoprazole 40 mg tablet,delayed 40 mg PO DAILY 10/11/20 11/19/20 release zinc 50 mg tablet 50 mg PO DAILY 10/11/20 11/19/20 Previous Rx's Medication Instructions Recorded tramadol 50 mg tablet (Ultram) 50 mg PO Q6H PRN #10 tab 09/23/20 acetaminophen 325 mg capsule 650 mg PO QID PRN #60 cap 10/30/20 (Tylenol) ibuprofen 200 mg tablet 400 mg PO Q6H #60 tab 10/30/20 tramadol 50 mg tablet 50 mg PO Q6H PRN #30 tab 10/30/20 oxycodone 5 mg tablet 5 mg PO Q8H PRN #10 tab 11/05/20 acetaminophen 300 mg-codeine 30 mg 1 tab PO BID PRN #14 tab 05/10/21 tablet acetaminophen 300 mg-codeine 30 mg 1 tab PO Q6H PRN 7 Days #14 tab 05/10/21 tablet Allergies Allergy/AdvReac Type Severity Reaction Status Date / Time Sulfa (Sulfonamide Allergy Unknown RASH Verified 05/10/21 10:32 Antibiotics) trimethoprim Allergy Unknown RASH Verified 05/10/21 10:32 Review of Systems <OLIVIER Gtz - Last Filed: 05/10/21 14:15> Review of Systems Narrative: General: denies fever, chills Head/Neck: denies headache, neck pain Eyes: denies visual changes, eye pain Cardio: denies chest pain, palpitations Respiratory: denies shortness of breath, cough GI: denies abdominal pain, nausea, vomiting, or diarrhea : denies dysuria, hematuria MSK: Endorses right knee pain, denies any muscle weakness or new neuropathy to any extremity. He denies any other pain at this time Skin: denies rash, itching Neuro: denies numbness, tingling Patient History <OLIVIER Gtz - Last Filed: 05/10/21 14:15> Medical History Abrasion of forehead Afib Alzheimers disease Arthritis Contusion of left hand Easy bruisability Eczema Elevated blood-pressure reading without diagnosis of hypertension GERD (gastroesophageal reflux disease) Gout Neuropathy ANA MARIA (obstructive sleep apnea) Pain Pneumonia Psoriasis Sinus drainage Skin cancer Vomiting Surgical History H/O inguinal hernia repair (~2007) History of bladder surgery (1994) History of left knee replacement (~2007) History of repair of hiatal hernia (~2010) S/P lumbar fusion Social History household members: spouse Smoking Status: Never smoker alcohol intake: never Smoking Status: Never smoker Substance Use Type: does not use Exam <OLIVIER Gtz - Last Filed: 05/10/21 14:15> Narrative Exam Narrative: Independently reviewed vitals signs and nursing notes. General: Awake, alert, nontoxic, no cardiorespiratory distress Head/Neck: Atraumatic, neck full range of motion Eyes: EOMI, conjunctiva normal Nose: nares patent, no rhinorrhea Mouth/Throat: moist mucus membranes, posterior pharynx normal, no oral lesions Cardio: Regular rate and rhythm, no peripheral edema Respiratory: respirations unlabored without wheezing, stridor, or rales. No retractions. GI: Abdomen soft, nontender MSK: Moves all extremities, neurovascularly intact, right knee with limited flexion to 40% due to pain, no limitations for extension. Veress and valgus test were negative, anterior drawer test negative, patient does have pain when palpating over the MCL, no pain over the LCL or posteriorly. Patient has mild edema to his right knee, no color changes, hematoma, or wound. Skin: Normal capillary refill, no rash Neuro: Normal speech and cognition, normal gait Initial Vital Signs Initial Vital Signs: Vital Signs Temperature 98.0 F 05/10/21 10:29 Pulse Rate 58 L 05/10/21 10:29 Respiratory Rate 16 05/10/21 10:29 Blood Pressure 140/72 05/10/21 10:29 Pulse Oximetry 94 05/10/21 10:29 Course <OLIVIER Gtz - Last Filed: 05/10/21 14:15> Orders Ordered: Discontinued Medications Acetaminophen/Codeine Phosphate (Codeine/Acetaminophen 30/300 Tablet) 1 tab PO NOW ONE Stop: 05/10/21 12:06 Last Admin: 05/10/21 12:28 Dose: 1 tab Documented by: KBROTEM Vital Signs Vital signs: Vital Signs - 8 hr 05/10/21 12:48 Pulse Rate 50 L Blood Pressure 158/79 H Pulse Oximetry 96 MDM - Extremity Injury (Lower) <Kitty Humphries [facility] - Last Filed: 05/10/21 14:15> Imaging Data Extremity x-ray #1: Radiologist's Impression: PROCEDURE:? XR KNEE RT 3V ? INDICATIONS:? right knee pain s/p fall ? TECHNIQUE:? 3 views of the knee were acquired.? ? COMPARISON:? None. ? FINDINGS:? ? Bones:? No fractures or dislocations.? No suspicious bony lesions.? Tricompartmental arthritic changes as well as chondrocalcinosis. ? Soft tissues:? Mild joint effusion.? No suspicious soft tissue calcifications.? ? ? IMPRESSION:? Significant arthritic change.? No visualized acute fracture or dislocation. However, if clinical concern and/or pain persist, short interval imaging followup in 7-10 days is recommended, as occult injury cannot be definitively excluded. ? ? ? Dictated by: Shaniqua Vasquez M.D. on 05/10/2021 at 11:23 ? ? Approved by: Shaniqua Vasquez M.D. on 05/10/2021 at 11:24 ? Extremity x-ray #2: Radiologist's Impression: PROCEDURE:? XR HIP W PEL IF DONE LT 2V ? INDICATIONS:? fall left hip pain ? TECHNIQUE:? AP pelvis with lateral view(s) of the left hip(s).? ? COMPARISON:? [facility], , XR HIP W PEL IF DONE LT 2V, 09/23/2020, 14:38. ? FINDINGS:? ? Bones:? No fractures or dislocations.? Lower lumbar fusion with lucency surrounding the L5 screw, unchanged.? Pelvic ring appears intact.? No suspicious bony lesions.? ? Soft tissues:? The visualized bowel gas pattern is normal.? No suspicious soft tissue calcifications.? ? ? IMPRESSION:? ? 1. No visualized acute fracture or dislocation. However, if clinical concern and/or pain persist, short interval imaging followup in 7-10 days is recommended, as occult injury cannot be definitively excluded. ? 2. Periprosthetic loosening surrounding the L5 screw as above suggestive of loosening, unchanged. ? ? ? Dictated by: Shaniqua Vasquez M.D. on 05/10/2021 at 11:21 ? ? Approved by: Shaniqua Vasquez M.D. on 05/10/2021 at 11:23 ? lumbar: Radiologist's Impression: PROCEDURE:? XR LUMBAR SPINE 2-3V ? INDICATIONS:? fall lower back pain ? TECHNIQUE:? 3 views of the lumbar spine were acquired.? ? [facility] 2 OR 3 VIEWS, 01/27/2018, 10:06.? [facility], CR, L-SPINE 2-3 VIEWS, 03/10/2017, 15:27. ? FINDINGS:? ? Bones:? 5 [id number] vertebrae are present.? There is multilevel retrolisthesis, unchanged.? Posterior fusion from L2 through L5 with intervertebral spacers are present.? Severe foraminal narrowing is noted at L5-S1.? Multilevel anterior osteophytes are present.? No vertebral body compression fractures.? No suspicious bony lesions.? ? Soft tissues:? Overlying bowel gas pattern is normal.? No suspicious soft tissue calcifications.? ? ? IMPRESSION:? Degenerative postsurgical changes as above. No visualized acute fracture or dislocation. However, if clinical concern and/or pain persist, short interval imaging followup in 7-10 days is recommended, as occult injury cannot be definitively excluded. ? ? Dictated by: Shaniqua Vasquez M.D. on 05/10/2021 at 11:24 ? ? Approved by: Shaniqua Vasquez M.D. on 05/10/2021 at 11:25 ? MDM Narrative Medical decision making narrative: 85-year-old male presents to the emergency department for right knee pain after a fall yesterday onto his buttocks. Patient complains of a hyperflexion injury to his right knee with pain to the anterior medial aspect of his right knee. He has limited flexion due to pain approximately at 50%. No extension limitations, patient is able to bear weight using his walker or a cane without difficulty. Patient is requesting pain control he was given this with Tylenol threes, I have referred him over to Julia Bueno with orthopedics as he reports he has seen her multiple times in the past and would like to follow-up with her. He was placed in a knee mobilizer, was able to ambulate without difficulty using a walker. X-rays were negative for acute fracture or dislocation, only showing a mild joint effusion. His lumbar and hip x-rays were also negative without any effusion, bony abnormality, or dislocation. Discharge Plan Departure Patient Disposition: Home Clinical Impression: Injury, knee Qualifiers: Encounter type: initial encounter Laterality: right Qualified Code(s): S89.91XA - Unspecified injury of right lower leg, initial encounter Instructions: DI for Knee Sprain Activity Restrictions/Additional Instructions: *You have been diagnosed with a knee sprain. Because your knee is swollen at this time it is difficult to assess the extent of a possible ligamentous injury. Please use this knee immobilizer for the next 1-3 weeks until you follow-up with orthopedics. Please call their office and schedule an appointment in 1 week this afternoon. Your x-ray showed a right knee effusion without fracture or dislocation. Please use your walker at home to get around with your knee immobilized. You for coming in today was nice to meet you. *What to do: *Please continue to take your regular medications as directed. [x ] New medication prescriptions sent to your pharmacy: [ Tylenol w/codeine to [facility]] [ ] New medication written as a paper prescription [ ] No new medications given *Please follow up with your primary care provider in 2-3 days, call for an appointment. Let them know you were seen in the Emergency Department and that we ask that you be seen in follow up. We will electronically transmit a record of today's note if your PCP is in our system *If you do not have a primary care provider please contact the [facility] Resource line at [phone]. They will ask some questions about your medical history and help get you set up with a doctor in the community. *Return to Emergency Department if you should have any new, worsening or concerning symptoms, such as [fever greater than 101F, chills, worsening pain, persistent vomiting or other bothersome symptoms] Prescriptions: New acetaminophen-codeine 300-30 mg tablet 1 tab PO Q6H PRN (Reason: pain) 7 Days Qty: 14 0RF acetaminophen-codeine 300-30 mg tablet 1 tab PO BID PRN (Reason: pain) Qty: 14 0RF Rx Instructions: prescription 2 of 2 No Action allopurinol 100 MG tablet 100 mg PO DAILY Qty: 0 0RF ascorbic acid (vitamin C) [Vitamin C] 1,000 mg Tablet 1,000 mg PO DAILY Qty: 0 0RF cyanocobalamin (vitamin B-12) [Vitamin B-12] 2,500 mcg Tablet, Sublingual 2,500 mcg SUBLINGUAL DAILY Qty: 0 0RF cholecalciferol (vitamin D3) [Vitamin D3] 125 mcg (5,000 unit) Tablet 125 mcg PO DAILY Qty: 0 0RF oxycodone 5 mg tablet 5 mg PO Q8H PRN (Reason: pain) Qty: 10 0RF pantoprazole 40 mg tablet,delayed release (DR/EC) 40 mg PO DAILY 0RF Eliquis 5 mg tablet 5 mg PO DAILY 0RF atorvastatin 40 mg tablet 40 mg PO DAILY 0RF losartan 25 mg tablet 25 mg PO DAILY 0RF elderberry fruit 200 mg capsule 100 mg PO DAILY 0RF aspirin [Adult Aspirin Regimen] 81 mg tablet,delayed release (DR/EC) 81 mg PO DAILY 0RF zinc 50 mg tablet 50 mg PO DAILY 0RF tramadol [Ultram] 50 mg tablet 50 mg PO Q6H PRN (Reason: pain) Qty: 10 0RF ibuprofen 200 mg tablet 400 mg PO Q6H Qty: 60 0RF acetaminophen [Tylenol] 325 mg capsule 650 mg PO QID PRN (Reason: pain) Qty: 60 0RF tramadol 50 mg tablet 50 mg PO Q6H PRN (Reason: pain) Qty: 30 0RF Referrals: Garrett Da Silva DO [Primary Care Provider] - Julia Bueno MD [Physician] -
[2021-05-10] MEDS: CODEINE/ACETAMINOPHEN 30/300 TABLET 1 TAB PO (12:28)
[2021-05-10 12:48] VITALS: BP 158/79; PULSE 50; O2SAT 96
== END 2021-05-10 12:49 | disposition home or self-care (01) ==
PROVIDERS: Emergency Provider Nurse Practitioner Critical Care Medicine; PCP Family Medicine
DX: S89.91XA Unspecified injury of right lower leg, initial encounter (principal); M25.551 Pain in right hip; M54.50 Low back pain, unspecified; W19.XXXA Unspecified fall, initial encounter
CPT/HCPCS: 72100; 73502; 73562; 99283; 99284

== ENCOUNTER → 2021-09-12 09:26 | Outpatient (CLI) | payer MEDICARE, OTHER, SELFPAY ==
--- NOTE | 2021-09-12 | DI.RAD.S_ITS ---
PROCEDURE: FL UPPER GI W AIR INDICATIONS: Early satiety COMPARISON: [facility], , BARIUM SWALLOW, 08/04/2012, 9:54. [facility], BARIUM SWALLOW, 07/27/2012, 8:36. [facility], , BARIUM SWALLOW WITH SPEECH, 02/27/2011, 9:26. FINDINGS: Esophagus: The proximal esophagus is patulous. Distal esophagus is narrowed, presumably related to surgical repair of hiatal hernia and fundoplication. There is severe esophageal dysmotility with disorganized tertiary contractions. Esophageal mucosa is normal on air-contrast views. A small contrast pooling is seen posterior to the esophagus, compatible with contrast within the fundoplication wrap. There is a moderate-sized paraesophageal hiatal hernia. No elicited gastroesophageal reflux. A calibrated barium tablet was given. There is temporary obstruction of the barium tablet proximal to knee since fundoplication. Stomach: The stomach is normally distensible, with normal rugal fold thickness. No mucosal masses or ulcers. Pylorus and duodenal bulb appear normal in morphology. Duodenal folds are normal in thickness as well. IMPRESSION: 1. Postsurgical changes related to prior surgical repair of hiatal hernia/fundoplication. 2. The proximal esophagus is patulous. The distal esophagus is narrowed, presumably secondary to postsurgical change but mild distal esophageal stricture cannot be excluded. Endoscopic exam is suggested if clinically indicated. 3. There is temporary obstruction of the calibrated barium tablet in the distal esophagus. 4. Severe esophageal dysmotility. 5. A moderate-sized paraesophageal hiatal hernia. 6. Normal duodenum. Dictated by: Channing Katz M.D. on 09/13/2021 at 9:15 Approved by: Channing Katz M.D. on 09/13/2021 at 9:30
== END ==
PROVIDERS: PCP Family Medicine; Referring Provider Internal Medicine Gastroenterology; Visit Provider Internal Medicine Gastroenterology
DX: R68.81 Early satiety (principal); K22.4 Dyskinesia of esophagus; K22.2 Esophageal obstruction; K44.9 Diaphragmatic hernia without obstruction or gangrene
CPT/HCPCS: 74246

== ENCOUNTER → 2022-04-10 13:17 | Outpatient (CLI) | payer MEDICARE, OTHER, SELFPAY | PROVIDERS: PCP Family Medicine; Referring Provider Physician Assistant; Visit Provider Surgery | DX: T81.31XA Disruption of external operation (surgical) wound, not elsewhere classified, initial encounter (principal); S21.102A Unspecified open wound of left front wall of thorax without penetration into thoracic cavity, initial encounter | CPT/HCPCS: 97597; 99204; 99213 ==

== ENCOUNTER → 2022-04-16 13:42 | Outpatient (CLI) | payer MEDICARE, OTHER, SELFPAY | PROVIDERS: PCP Family Medicine; Referring Provider Family Medicine; Visit Provider Surgery | DX: S21.102A Unspecified open wound of left front wall of thorax without penetration into thoracic cavity, initial encounter (principal); T81.89XA Other complications of procedures, not elsewhere classified, initial encounter | CPT/HCPCS: 97605; 99213 ==

== ENCOUNTER → 2022-04-23 14:17 | Outpatient (CLI) | payer MEDICARE, OTHER, SELFPAY | PROVIDERS: PCP Family Medicine; Referring Provider Family Medicine; Visit Provider Surgery | DX: T81.89XA Other complications of procedures, not elsewhere classified, initial encounter (principal); S21.102A Unspecified open wound of left front wall of thorax without penetration into thoracic cavity, initial encounter; Z79.01 Long term (current) use of anticoagulants; E46 Unspecified protein-calorie malnutrition | CPT/HCPCS: 97605; 99212 ==

== ENCOUNTER → 2022-05-01 08:43 | Outpatient (CLI) | payer MEDICARE, OTHER, SELFPAY | PROVIDERS: PCP Family Medicine; Referring Provider Physician Assistant; Visit Provider Obstetrics & Gynecology | DX: T81.31XA Disruption of external operation (surgical) wound, not elsewhere classified, initial encounter (principal); T82.7XXA Infection and inflammatory reaction due to other cardiac and vascular devices, implants and grafts, initial encounter | CPT/HCPCS: 97605; 99213 ==

== ENCOUNTER → 2022-05-08 10:32 | Outpatient (CLI) | payer MEDICARE, OTHER, SELFPAY | PROVIDERS: PCP Family Medicine; Referring Provider Physician Assistant; Visit Provider Surgery | DX: T82.7XXA Infection and inflammatory reaction due to other cardiac and vascular devices, implants and grafts, initial encounter (principal); T81.31XA Disruption of external operation (surgical) wound, not elsewhere classified, initial encounter; S21.101A Unspecified open wound of right front wall of thorax without penetration into thoracic cavity, initial encounter | CPT/HCPCS: 17250; 99212; 99213 ==

== ENCOUNTER 2022-05-11 12:48 | Emergency (ER) | payer MEDICARE, OTHER, SELFPAY ==
--- NOTE | 2022-05-11 13:04 | ED.GENADULT ---
HPI - General Adult General Stated complaint: wound is draining looks red Time Seen by Provider: 05/11/22 12:54 Source: patient Mode of arrival: Ambulatory Limitations: no limitations History of Present Illness HPI narrative: Patient is an 86-year-old male who within the past couple months had has some issues with his pacemaker. He is since had it removed. Had an infection in the area. Was followed by infectious disease. Was cleared by infectious disease. Is not currently on antibiotics. Had a wound VAC for a period of time which has since been discontinued. He is still being followed by wound care. At the end of last week they did put a silver solution over the area. Today the patient's states that when they went to go change the wound he had which she describes as white/yellow purulent material. She stated that she the area off. There is also now redness around the area. Patient otherwise feels well. Related Data Home Medications Medication Instructions Recorded Confirmed allopurinol 100 mg tablet 100 mg PO DAILY ##0 07/28/12 11/19/20 ascorbic acid (vitamin C) 1,000 mg 1,000 mg PO DAILY ##0 08/03/12 11/19/20 tablet (Vitamin C) cholecalciferol (vitamin D3) 125 125 mcg PO DAILY ##0 08/03/12 11/19/20 mcg (5,000 unit) tablet (Vitamin D3) cyanocobalamin (vitamin B-12) 2,500 mcg sublingual DAILY ##0 08/03/12 11/19/20 2,500 mcg sublingual tablet (Vitamin B-12) apixaban 5 mg tablet (Eliquis) 5 mg PO DAILY 10/11/20 11/19/20 aspirin 81 mg tablet,delayed 81 mg PO DAILY 10/11/20 11/19/20 release (Adult Aspirin Regimen) atorvastatin 40 mg tablet 40 mg PO DAILY 10/11/20 11/19/20 elderberry fruit 200 mg capsule 100 mg PO DAILY 10/11/20 11/19/20 losartan 25 mg tablet 25 mg PO DAILY 10/11/20 11/19/20 pantoprazole 40 mg tablet,delayed 40 mg PO DAILY 10/11/20 11/19/20 release zinc 50 mg tablet 50 mg PO DAILY 10/11/20 11/19/20 Previous Rx's Medication Instructions Recorded tramadol 50 mg tablet (Ultram) 50 mg PO Q6H PRN pain #10 tabs 09/23/20 acetaminophen 325 mg capsule 650 mg PO QID PRN pain #60 caps 10/30/20 (Tylenol) ibuprofen 200 mg tablet 400 mg PO Q6H #60 tabs 10/30/20 tramadol 50 mg tablet 50 mg PO Q6H PRN pain #30 tabs 10/30/20 oxycodone 5 mg tablet 5 mg PO Q8H PRN pain #10 tabs 11/05/20 acetaminophen 300 mg-codeine 30 mg 1 tab PO BID PRN pain #14 tabs 05/10/21 tablet cephalexin 500 mg capsule 500 mg PO QID 7 days #28 caps 05/11/22 Allergies Allergy/AdvReac Type Severity Reaction Status Date / Time Sulfa (Sulfonamide Allergy Unknown RASH Verified 05/10/21 10:32 Antibiotics) trimethoprim Allergy Unknown RASH Verified 05/10/21 10:32 Review of Systems Constitutional Constitutional: Reports system reviewed and no additional complaints, except as documented Integumentary/Breasts Skin/Breast: Reports system reviewed and no additional complaints, except as documented Hematologic/Lymphatic On Anticoagulants: Yes Patient History Medical History Abrasion of forehead Afib Alzheimers disease Arthritis Contusion of left hand Easy bruisability Eczema Elevated blood-pressure reading without diagnosis of hypertension GERD (gastroesophageal reflux disease) Gout Neuropathy ANA MARIA (obstructive sleep apnea) Pain Pneumonia Psoriasis Sinus drainage Skin cancer Vomiting Surgical History H/O inguinal hernia repair (~2007) History of bladder surgery (1994) History of left knee replacement (~2007) History of repair of hiatal hernia (~2010) S/P lumbar fusion Social History household members: spouse Smoking Status: Never smoker alcohol intake: never Smoking Status: Never smoker Substance Use Type: does not use Exam HENOK Head: normal to inspection and normocephalic Resp Effort & Inspection: normal respiratory effort Skin Other: In his left upper chest there is granulation tissue that is approximately 2 cm x 2 cm. There is no specific drainage noted around the area. There is a larger area of redness surrounding this. There is no fluctuance. No vesicles. Neuro General: patient alert, patient awake and moves all extremities Course Orders Ordered: ED Orders 05/11/22 13:04 Wound Culture and Gram Stain Stat Medical Decision Making MDM Narrative Medical decision making narrative: Do have some questions whether not this is a cellulitis versus just a skin irritation from the treatment that he received at the end of last week. The granulation tissue appears well. There is no signs abscess. No indication for radiologic studies. Patient is nontoxic. Given the nature of the wound in his chest and the fact that any further infection would be greatly detrimental to replacement of the pacemaker we will start him on antibiotics. A culture was obtained. Will start him on Keflex. He was informed that if we need to change the antibiotics based on the culture we will contact him. He was given return precautions. He expressed understanding and agreement. Discharge Plan Departure Patient Disposition: Home Clinical Impression: Cellulitis Instructions: Cellulitis Activity Restrictions/Additional Instructions: Continue to follow all of the instructions given to by wound care. Keep all of your scheduled medical appointments. We will start you on antibiotics. A wound culture was obtained in this will take several days to result. We will contact you if we need to change any antibiotics. Return to the emergency department for any new symptoms. Prescriptions: New cephalexin 500 mg capsule 500 mg PO QID 7 Days Qty: 28 0RF No Action allopurinol 100 MG tablet 100 mg PO DAILY Qty: 0 ascorbic acid (vitamin C) [Vitamin C] 1,000 mg Tablet 1,000 mg PO DAILY Qty: 0 cyanocobalamin (vitamin B-12) [Vitamin B-12] 2,500 mcg Tablet, Sublingual 2,500 mcg SUBLINGUAL DAILY Qty: 0 cholecalciferol (vitamin D3) [Vitamin D3] 125 mcg (5,000 unit) Tablet 125 mcg PO DAILY Qty: 0 oxycodone 5 mg tablet 5 mg PO Q8H PRN (Reason: pain) Qty: 10 0RF pantoprazole 40 mg tablet,delayed release (DR/EC) 40 mg PO DAILY Eliquis 5 mg tablet 5 mg PO DAILY atorvastatin 40 mg tablet 40 mg PO DAILY losartan 25 mg tablet 25 mg PO DAILY elderberry fruit 200 mg capsule 100 mg PO DAILY aspirin [Adult Aspirin Regimen] 81 mg tablet,delayed release (DR/EC) 81 mg PO DAILY zinc 50 mg tablet 50 mg PO DAILY tramadol [Ultram] 50 mg tablet 50 mg PO Q6H PRN (Reason: pain) Qty: 10 0RF ibuprofen 200 mg tablet 400 mg PO Q6H Qty: 60 0RF acetaminophen [Tylenol] 325 mg capsule 650 mg PO QID PRN (Reason: pain) Qty: 60 0RF tramadol 50 mg tablet 50 mg PO Q6H PRN (Reason: pain) Qty: 30 0RF acetaminophen-codeine 300-30 mg tablet 1 tab PO BID PRN (Reason: pain) Qty: 14 0RF Rx Instructions: prescription 2 of 2 Referrals: Garrett Da Silva DO [Primary Care Provider] -
[2022-05-11 13:23] VITALS: BP 165/79; PULSE 80; RESP 18; TEMP 36.5; O2SAT 99; BMI 20.9
--- NOTE | 2022-05-11 13:32 | PC.NURSE ---
foam dressing applied, pt will see wound care tomorrow, pt has wound on rt arm placed a bandaid to cover from shirt.
== END 2022-05-11 13:25 | disposition home or self-care (01) ==
PROVIDERS: Emergency Provider Emergency Medicine; PCP Family Medicine
DX: L03.113 Cellulitis of right upper limb (principal)
CPT/HCPCS: 99281; 99282

== ENCOUNTER → 2022-05-15 14:44 | Outpatient (CLI) | payer MEDICARE, OTHER, SELFPAY | PROVIDERS: PCP Family Medicine; Referring Provider Family Medicine; Visit Provider Surgery | DX: S21.101A Unspecified open wound of right front wall of thorax without penetration into thoracic cavity, initial encounter (principal); T82.7XXS Infection and inflammatory reaction due to other cardiac and vascular devices, implants and grafts, sequela | CPT/HCPCS: 17250; 99213 ==

== ENCOUNTER → 2022-05-22 09:25 | Outpatient (CLI) | payer MEDICARE, OTHER, SELFPAY | PROVIDERS: PCP Family Medicine; Referring Provider Physician Assistant; Visit Provider Surgery | DX: T82.7XXS Infection and inflammatory reaction due to other cardiac and vascular devices, implants and grafts, sequela (principal); T81.89XA Other complications of procedures, not elsewhere classified, initial encounter; S21.102A Unspecified open wound of left front wall of thorax without penetration into thoracic cavity, initial encounter | CPT/HCPCS: 17250; 99213 ==

== ENCOUNTER → 2022-05-29 13:14 | Outpatient (CLI) | payer MEDICARE, OTHER, SELFPAY | PROVIDERS: PCP Family Medicine; Referring Provider Family Medicine; Visit Provider Surgery | DX: T82.7XXS Infection and inflammatory reaction due to other cardiac and vascular devices, implants and grafts, sequela (principal); T81.31XA Disruption of external operation (surgical) wound, not elsewhere classified, initial encounter | CPT/HCPCS: 99213 ==

== ENCOUNTER → 2022-06-12 14:12 | Outpatient (CLI) | payer MEDICARE, OTHER, SELFPAY | PROVIDERS: PCP Family Medicine; Referring Provider Physician Assistant; Visit Provider Surgery | DX: T82.7XXA Infection and inflammatory reaction due to other cardiac and vascular devices, implants and grafts, initial encounter (principal); T81.89XA Other complications of procedures, not elsewhere classified, initial encounter; Z79.01 Long term (current) use of anticoagulants | CPT/HCPCS: 17250; 99212; 99213 ==

== ENCOUNTER → 2022-06-26 09:54 | Outpatient (CLI) | payer MEDICARE, OTHER, SELFPAY | PROVIDERS: PCP Family Medicine; Referring Provider Family Medicine; Visit Provider Surgery | DX: T82.7XXD Infection and inflammatory reaction due to other cardiac and vascular devices, implants and grafts, subsequent encounter (principal); T81.31XD Disruption of external operation (surgical) wound, not elsewhere classified, subsequent encounter | CPT/HCPCS: 99212; 99213 ==

== ENCOUNTER 2022-07-04 21:21 | Emergency (ER) | payer MEDICARE, OTHER, SELFPAY ==
[2022-07-04 21:26] VITALS: BP 160/82; PULSE 66; RESP 15; TEMP 36.6; O2SAT 98; BMI 20.5
--- NOTE | 2022-07-04 21:33 | DI.RAD.S_ITS ---
PROCEDURE: XR SHOULDER RT MIN 2V INDICATIONS: fall,rib pain on eliquis TECHNIQUE: 3 views of the shoulder were acquired. COMPARISON: None. FINDINGS: Bones: No fractures or dislocations. There is moderate glenohumeral and acromioclavicular joint degeneration. No suspicious bony lesions. Visualized ribs appear intact. Soft tissues: No suspicious soft tissue calcifications. IMPRESSION: 1. No fracture or dislocation. Dictated by: Darrel Wilson M.D. on 07/04/2022 at 22:47 Approved by: Darrel Wilson M.D. on 07/04/2022 at 22:48
--- NOTE | 2022-07-04 21:33 | DI.CT.S_ITS ---
PROCEDURE: CT CHEST W CON INDICATIONS: fall,rib pain on eliquis TECHNIQUE: After the administration of intravenous contrast, 5 mm thick sections acquired from the pulmonary apices to the posterior costophrenic angles. 1 mm axial lung, 5 mm thick coronal and sagittal reformats and 7 mm axial MIP were acquired. For radiation dose reduction, the following was used: automated exposure control, adjustment of mA and/or kV according to patient size. COMPARISON: None. FINDINGS: Image quality: Excellent. Lower Neck: No lymphadenopathy by size criteria. Thyroid: Visualized thyroid demonstrates no discrete nodules. Axillae: No lymphadenopathy by size criteria. Chest Wall: Unremarkable. Bones: No displaced fracture identified. Visualized osseous structures demonstrate no suspicious lesions. Lungs and Airways: There is a small region of left infrahilar consolidation. Mild dependent atelectasis also demonstrated bilaterally in the lower lobes. No suspicious pulmonary nodules. The trachea and central airways are patent. Pleura: No pneumothorax. There is a small left pleural effusion. Heart: Heart size is normal. No pericardial effusion. Thoracic Vessels: The aorta and pulmonary arteries are normal in size. Mediastinum and Ofelia: No lymphadenopathy by size criteria. Esophagus: There is a small hiatal hernia. There is moderate fluid distention of the visualized mid to distal esophagus. IMPRESSION: 1. No evidence of pneumothorax. 2. Small left pleural effusion. 3. Left lower lobe infrahilar consolidation is nonspecific but the differential includes pneumonia. 4. No discrete rib fracture identified. Dictated by: Darrel Wilson M.D. on 07/04/2022 at 23:00 Approved by: Darrel Wilson M.D. on 07/04/2022 at 23:13
[2022-07-04 21:54] LABS: Add Manual Diff / Slide Review NO; Basophils Absolute Auto 0 /uL (0-100); Basophils Percent Auto 0.4 % (0-2); Eosinophils Absolute Auto 100 /uL (0-450); Eosinophils Percent Auto 0.7 % (2-4); Hematocrit 33.7 % (41-53); Hemoglobin 11.3 g/dL (13.5-17.5); Lymphocytes Absolute Auto 1000 /uL (1100-4500); Lymphocytes Percent Auto 10.3 % (25-40); Mean Corpuscular HGB Conc 33.4 % (30-36); Mean Corpuscular Hemoglobin 31.6 PG (26-34); Mean Corpuscular Volume 94.6 fL (80-100); Monocytes Absolute Auto 800 /uL (0-900); Monocytes Percent Auto 7.5 % (3-14); Neutrophils Absolute Auto 8200 /uL (1500-7000); Neutrophils Percent Auto 81.1 % (50-75); Platelet Count 201 X10^3/uL (150-400); Red Blood Cell Count 3.56 X10^6/uL (4.5-5.9); Red Cell Distribution Width 14.3 % (11.6-14.8); White Blood Cell Count 10.1 X10^3/uL (4.5-11.0)
[2022-07-04 22:05] LABS: Alanine Aminotransferase 32 IU/L (<50); Albumin Globulin Ratio 1.3 (1.0-2.8); Alkaline Phosphatase 128 U/L (38-126); Aspartate Aminotransferase 38 IU/L (17-59); BUN Creatinine Ratio 28.2 (6-22); Bilirubin Total 0.6 mg/dL (0.2-1.3); Blood Urea Nitrogen 35 mg/dL (9-20); Calcium 9.1 mg/dL (8.4-10.2); Carbon Dioxide 21 mmol/L (22-32); Chloride 103 mmol/L (98-107); Estimated Glomerular Filt Rate 57 mL/min (>60); Globulin 3.1 g/dL (1.7-4.1); Glucose 125 mg/dL (80-110); HEMOLYSIS < 15 (0-50); Potassium 5.1 mmol/L (3.4-5.1); Sodium 135 mmol/L (137-145); Total Protein 7.1 g/dL (6.3-8.2)
--- NOTE | 2022-07-05 00:54 | ED.FALL ---
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 It has since been removed and he is scheduled for a replacement pacemaker on the right side to be placed on July 07. Is anticoagulated, has a history of hypertension. This evening he and his went out to dinner and as they were walking to their table in the restaurant he stumbled on a chair leg that was sticking out further than he saw and fell landing on his right shoulder with his right arm compressed into his right ribs. He is complaining of right rib pain. With assistance he was able to get back to his feet and stand without lower extremity hip or low back pain. He was continuing to have right shoulder and right chest wall pain. He was able to use his walker to get to his car. They initially went home where he took a Vicodin to help with pain control however the pain became increasingly worse and he came to the emergency room for further evaluation. He is not complaining of fevers, cough, chills. Noticing no palpitations no specific shortness of breath but notes that he is splinting secondary to the rib pain. Related Data Home Medications Medication Instructions Recorded Confirmed allopurinol 100 mg tablet 100 mg PO DAILY ##0 07/28/12 11/19/20 ascorbic acid (vitamin C) 1,000 mg 1,000 mg PO DAILY ##0 08/03/12 11/19/20 tablet (Vitamin C) cholecalciferol (vitamin D3) 125 125 mcg PO DAILY ##0 08/03/12 11/19/20 mcg (5,000 unit) tablet (Vitamin D3) cyanocobalamin (vitamin B-12) 2,500 mcg sublingual DAILY ##0 08/03/12 11/19/20 2,500 mcg sublingual tablet (Vitamin B-12) apixaban 5 mg tablet (Eliquis) 5 mg PO DAILY 10/11/20 11/19/20 aspirin 81 mg tablet,delayed 81 mg PO DAILY 10/11/20 11/19/20 release (Adult Aspirin Regimen) atorvastatin 40 mg tablet 40 mg PO DAILY 10/11/20 11/19/20 elderberry fruit 200 mg capsule 100 mg PO DAILY 10/11/20 11/19/20 losartan 25 mg tablet 25 mg PO DAILY 10/11/20 11/19/20 pantoprazole 40 mg tablet,delayed 40 mg PO DAILY 10/11/20 11/19/20 release zinc 50 mg tablet 50 mg PO DAILY 10/11/20 11/19/20 Previous Rx's Medication Instructions Recorded tramadol 50 mg tablet (Ultram) 50 mg PO Q6H PRN pain #10 tabs 09/23/20 acetaminophen 325 mg capsule 650 mg PO QID PRN pain #60 caps 10/30/20 (Tylenol) ibuprofen 200 mg tablet 400 mg PO Q6H #60 tabs 10/30/20 tramadol 50 mg tablet 50 mg PO Q6H PRN pain #30 tabs 10/30/20 oxycodone 5 mg tablet 5 mg PO Q8H PRN pain #10 tabs 11/05/20 acetaminophen 300 mg-codeine 30 mg 1 tab PO BID PRN pain #14 tabs 05/10/21 tablet doxycycline hyclate 100 mg tablet 100 mg PO BID #20 tabs 05/14/22 doxycycline hyclate 100 mg tablet 100 mg PO BID #20 tabs 05/14/22 oxycodone-acetaminophen 5 mg-325 1 tab PO Q6H PRN pain #15 tabs 07/05/22 mg tablet Allergies Allergy/AdvReac Type Severity Reaction Status Date / Time Sulfa (Sulfonamide Allergy Unknown RASH Verified 07/04/22 21:26 Antibiotics) trimethoprim Allergy Unknown RASH Verified 07/04/22 21:26 Review of Systems Review of Systems Narrative: Remainder of complete review of systems is otherwise unremarkable except for that included in the HPI. Patient History Medical History Abrasion of forehead Afib Alzheimers disease Arthritis Contusion of left hand Easy bruisability Eczema Elevated blood-pressure reading without diagnosis of hypertension GERD (gastroesophageal reflux disease) Gout Neuropathy ANA MARIA (obstructive sleep apnea) Pain Pneumonia Psoriasis Sinus drainage Skin cancer Vomiting Surgical History H/O inguinal hernia repair (~2007) History of bladder surgery (1994) History of left knee replacement (~2007) History of repair of hiatal hernia (~2010) S/P lumbar fusion Social History household members: spouse Smoking Status: Never smoker alcohol intake: never Smoking Status: Never smoker alcohol intake frequency: holidays/special occasions only Substance Use Type: does not use Exam Initial Vital Signs Initial Vital Signs: Vital Signs Temperature 97.8 F 07/04/22 21:26 Pulse Rate 66 07/04/22 21:26 Respiratory Rate 15 07/04/22 21:26 Blood Pressure 160/82 H 07/04/22 21:26 Pulse Oximetry 98 07/04/22 21:26 Oxygen Delivery Method 07/04/22 21:26 General: Frail appearing in moderate distress splinting on the right side and favoring his right shoulder but, Able to give a complete and coherent history. HEENT: Moist mucous membranes, normal sclera with reactive pupils, no head trauma Neck: No midline cervical spine tenderness Respiratory: Lungs are clear to auscultation, no wheezing no rales no rhonchi. Mild splinting on the right side that no obvious contusions to the skin and no step-off concern for obvious fracture. No subcutaneous air. No tenderness over thoracic spine Cardiac: Regular rate and rhythm no murmurs no bruits Abdomen: Soft, nontender, good bowel tones, no flank pain Skin: Warm and dry, no rashes Neurologic: Baseline unstable but Grossly neurologically intact with no obvious asymmetries or abnormalities Extremities: Skin tears to the right elbow otherwise well perfused Psych: Cooperative, appropriate insight and affect Course Orders Ordered: ED Orders 07/04/22 21:33 CT chest w con Stat XR shoulder RT min 2V Stat 07/04/22 21:43 Complete Blood Count AUTO DIFF Stat Comprehensive Metabolic Panel Stat Discontinued Medications Oxycodone/Acetaminophen (Oxycodone/Acetaminophen 5/325 Tablet) 1 tab PO NOW ONE Stop: 07/05/22 01:10 Last Admin: 07/05/22 01:16 Dose: 1 tab Oxycodone/Acetaminophen (Oxycodone/Apap 5/325 Prepack) 1 bottle MISC SEEINSTR ONE Stop: 07/05/22 01:10 Last Admin: 07/05/22 01:16 Dose: 1 bottle Vital Signs Vital signs: Vital Signs - 8 hr 07/04/22 21:26 07/05/22 01:22 Temperature 97.8 F Pulse Rate 66 66 Respiratory Rate 15 Blood Pressure 160/82 H 163/76 H Pulse Oximetry 98 98 Oxygen Delivery Method Room Air Room Air MDM - Fall Lab Data 07/04/22 21:43 07/04/22 21:43 Labs: Lab Results 07/04/22 07/04/22 Range/Units 21:43 21:43 WBC 10.1 (4.5-11.0) X10^3/uL RBC 3.56 L (4.5-5.9) X10^6/uL Hgb 11.3 L (13.5-17.5) g/dL Hct 33.7 L (41-53) % MCV 94.6 (80-100) fL MCH 31.6 (26-34) PG MCHC 33.4 (30-36) % RDW 14.3 (11.6-14.8) % Plt Count 201 (150-400) X10^3/uL Neut % (Auto) 81.1 H (50-75) % Lymph % (Auto) 10.3 L (25-40) % [place] % (Auto) 7.5 (3-14) % Eos % (Auto) 0.7 L (2-4) % Baso % (Auto) 0.4 (0-2) % Neut # (Auto) 8200 H (7833-4786) /uL Lymph # (Auto) 1000 L (2456-2927) /uL [place] # (Auto) 800 (0-900) /uL Eos # (Auto) 100 (0-450) /uL Baso # (Auto) 0 (0-100) /uL Sodium 135 L (137-145) mmol/L Potassium 5.1 (3.4-5.1) mmol/L Chloride 103 (98-107) mmol/L Carbon Dioxide 21 L (22-32) mmol/L BUN 35 H (9-20) mg/dL Creatinine 1.24 (0.66-1.25) mg/dL Estimated GFR 57 L (>60) mL/min BUN/Creatinine Ratio 28.2 H (6-22) Glucose 125 H (80-110) mg/dL Calcium 9.1 (8.4-10.2) mg/dL Total Bilirubin 0.6 (0.2-1.3) mg/dL AST 38 (17-59) IU/L ALT 32 (<50) IU/L Alkaline Phosphatase 128 H (38-126) U/L Total Protein 7.1 (6.3-8.2) g/dL Albumin 4.0 (3.5-5.0) g/dL Globulin 3.1 (1.7-4.1) g/dL Albumin/Globulin Ratio 1.3 (1.0-2.8) MDM Narrative Medical decision making narrative: CC: Mechanical fall, stumbled over a chair leg. Complaining of right shoulder and right chest wall pain. Did not hit his head. This is a new an undiagnosed problem with uncertain prognosis and potential for systemic difficulties Complicating co-morbidities: Age, anticoagulated, frailty, gait instability Corroborating data: Data collected from: patient, Social determinants of health that may influence the patients condition: Age, difficulty in getting to appointments secondary to pain and immobility Medical records reviewed: ER notes from prior visits reviewed, no primary care notes are available Differential considered: Multiple trauma, hemopneumothorax, rib fractures, pelvic fracture, spine fractures, cervical spine injury, humerus fracture, acute shoulder injury, shoulder dislocation Exam documented above, pertinent findings include: Minor fullness in the right shoulder with tenderness to movement but no overt fractures. Skin tears to the right elbow. Moderate tenderness in the mid axillary line right ribs Lab Test results independently reviewed as above. Pertinent findings: No leukocytosis, mild anemia similar to 2017 findings Chemistries with mild abnormalities seem consistent and stable compared to 2019, Imaging studies independently reviewed: X-ray of the shoulder shows no acute fractures or dislocations. CT scan of the chest shows no acute fractures, compression fractures, hemopneumothorax or pulmonary contusion Discussion: Patient suffered a mechanical fall currently on concerned that he will not be able to have his pacemaker placed on Thursday. No obvious shoulder humerus rib or vertebral compression fractures appreciated. Is given a incentive spirometer along with instructions on use to help prevent atelectasis and pneumonia secondary to pain. Given a prescription for Percocet along with instructions. He took a single Vicodin(left over from a prior surgery) that was not effective in controlling his pain. Talked about the importance of being up and moving even though he is hurting and recognizing that he likely is going to be even more sore tomorrow due to the fall this evening. Encouraged him to keep his appointment for his pacemaker placement and return to the emergency department if he is developing any new or concerning findings. Disposition: see below, along with detailed discharge instructions that have been reviewed with patient as well as indications for ED re-evaluation and additional outpatient follow up Discharge Plan Departure Patient Disposition: Home Clinical Impression: Rib pain on right side Fall Qualifiers: Encounter type: initial encounter Qualified Code(s): W19.XXXA - Unspecified fall, initial encounter Right shoulder strain Qualifiers: Encounter type: initial encounter Qualified Code(s): S46.911A - Strain of unspecified muscle, fascia and tendon at shoulder and upper arm level, right arm, initial encounter Instructions: DI for Rib Contusion, DI for Shoulder Sprain Activity Restrictions/Additional Instructions: Thank you for coming in today I am sorry tripped on the chair leg and ended up falling. Fortunately I am not finding anything broken. Specifically the x-ray of your shoulder shows arthritis but no fractures. I am going to give you a sling to see if it helps control the pain. If the sling causes more discomfort, you do not need to use it. With the chest wall pain, we did do a CT scan that showed no collapsed lung, blood around your lungs, new compression fractures and no rib fractures. You clearly have bruise the ribs and you are going to hurt more tomorrow in all of the spots that are hurting today and probably a number of new spots as well At this time, aside from pain, this should not interfere with your anticipated pacemaker placement on Thursday You can use 1-2 Percocet, Tylenol plus oxycodone every 6 hours as needed for pain. This is a narcotic and can make you constipated. Please make sure you are using stool softener as needed If you find that you are getting worse or develop any new symptoms, please feel free to return to the emergency department for further evaluation. Prescriptions: New oxycodone-acetaminophen 5-325 mg tablet 1 tab PO Q6H PRN (Reason: pain) Qty: 15 0RF No Action allopurinol 100 MG tablet 100 mg PO DAILY Qty: 0 ascorbic acid (vitamin C) [Vitamin C] 1,000 mg Tablet 1,000 mg PO DAILY Qty: 0 cyanocobalamin (vitamin B-12) [Vitamin B-12] 2,500 mcg Tablet, Sublingual 2,500 mcg SUBLINGUAL DAILY Qty: 0 cholecalciferol (vitamin D3) [Vitamin D3] 125 mcg (5,000 unit) Tablet 125 mcg PO DAILY Qty: 0 oxycodone 5 mg tablet 5 mg PO Q8H PRN (Reason: pain) Qty: 10 0RF pantoprazole 40 mg tablet,delayed release (DR/EC) 40 mg PO DAILY Eliquis 5 mg tablet 5 mg PO DAILY atorvastatin 40 mg tablet 40 mg PO DAILY losartan 25 mg tablet 25 mg PO DAILY elderberry fruit 200 mg capsule 100 mg PO DAILY aspirin [Adult Aspirin Regimen] 81 mg tablet,delayed release (DR/EC) 81 mg PO DAILY zinc 50 mg tablet 50 mg PO DAILY doxycycline hyclate 100 mg tablet 100 mg PO BID Qty: 20 0RF doxycycline hyclate 100 mg tablet 100 mg PO BID Qty: 20 0RF tramadol [Ultram] 50 mg tablet 50 mg PO Q6H PRN (Reason: pain) Qty: 10 0RF ibuprofen 200 mg tablet 400 mg PO Q6H Qty: 60 0RF acetaminophen [Tylenol] 325 mg capsule 650 mg PO QID PRN (Reason: pain) Qty: 60 0RF tramadol 50 mg tablet 50 mg PO Q6H PRN (Reason: pain) Qty: 30 0RF acetaminophen-codeine 300-30 mg tablet 1 tab PO BID PRN (Reason: pain) Qty: 14 0RF Rx Instructions: prescription 2 of 2 Referrals: Garrett Da Silva DO [Primary Care Provider] - Stand Alone Forms: Patient Portal/API
[2022-07-05] MEDS: OXYCODONE/APAP 5/325 PREPACK 1 BOTTLE MISC (01:16)
[2022-07-05] MEDS: OXYCODONE/ACETAMINOPHEN 5/325 TABLET 1 TAB PO (01:16)
[2022-07-05 01:22] VITALS: BP 163/76; PULSE 66; O2SAT 98
== END 2022-07-05 02:18 | disposition home or self-care (01) ==
PROVIDERS: Emergency Provider Emergency Medicine; PCP Family Medicine
DX: S46.911A Strain of unspecified muscle, fascia and tendon at shoulder and upper arm level, right arm, initial encounter (principal); R07.81 Pleurodynia; R07.89 Other chest pain; W18.30XA Fall on same level, unspecified, initial encounter; Z79.899 Other long term (current) drug therapy; Z79.01 Long term (current) use of anticoagulants
CPT/HCPCS: 36415; 71260; 73030; 80053; 85025; 99284; Q9967

== ENCOUNTER 2022-09-19 21:32 | Emergency (ER) | payer MEDICARE, OTHER, SELFPAY ==
[2022-09-19] VITALS (7 sets, daily range): BP systolic 149–163; BP diastolic 75–87; PULSE 70–122; RESP 18; TEMP 36.4; O2SAT 97–99; BMI 20.2
--- NOTE | 2022-09-19 21:52 | ED.RECABL ---
HPI - Recheck/Abnormal Lab/Rx General Chief Complaint: Recheck/Abnormal Lab/Rx Stated Complaint: Surgery wound Time Seen by Provider: 09/19/22 21:52 Source: patient Mode of arrival: Wheelchair Limitations: no limitations History of Present Illness HPI narrative: Patient is an 87-year-old male who underwent pacemaker placement earlier today. There was a femoral artery approach. He stated that the procedure went well. He was able to be discharged home and has a day went on he started noticing continued oozing/bleeding from the catheter insertion site he has been off of blood thinners for the past couple days. He stated that he has been sitting in his chair most of the day after arriving home. No specific trauma the area. Related Data Home Medications Medication Instructions Recorded Confirmed allopurinol 100 mg tablet 100 mg PO DAILY ##0 07/28/12 11/19/20 ascorbic acid (vitamin C) 1,000 mg 1,000 mg PO DAILY ##0 08/03/12 11/19/20 tablet (Vitamin C) cholecalciferol (vitamin D3) 125 125 mcg PO DAILY ##0 08/03/12 11/19/20 mcg (5,000 unit) tablet (Vitamin D3) cyanocobalamin (vitamin B-12) 2,500 mcg sublingual DAILY ##0 08/03/12 11/19/20 2,500 mcg sublingual tablet (Vitamin B-12) apixaban 5 mg tablet (Eliquis) 5 mg PO DAILY 10/11/20 11/19/20 aspirin 81 mg tablet,delayed 81 mg PO DAILY 10/11/20 11/19/20 release (Adult Aspirin Regimen) atorvastatin 40 mg tablet 40 mg PO DAILY 10/11/20 11/19/20 elderberry fruit 200 mg capsule 100 mg PO DAILY 10/11/20 11/19/20 losartan 25 mg tablet 25 mg PO DAILY 10/11/20 11/19/20 pantoprazole 40 mg tablet,delayed 40 mg PO DAILY 10/11/20 11/19/20 release zinc 50 mg tablet 50 mg PO DAILY 10/11/20 11/19/20 Previous Rx's Medication Instructions Recorded tramadol 50 mg tablet (Ultram) 50 mg PO Q6H PRN pain #10 tabs 09/23/20 acetaminophen 325 mg capsule 650 mg PO QID PRN pain #60 caps 10/30/20 (Tylenol) ibuprofen 200 mg tablet 400 mg PO Q6H #60 tabs 10/30/20 tramadol 50 mg tablet 50 mg PO Q6H PRN pain #30 tabs 10/30/20 oxycodone 5 mg tablet 5 mg PO Q8H PRN pain #10 tabs 11/05/20 acetaminophen 300 mg-codeine 30 mg 1 tab PO BID PRN pain #14 tabs 05/10/21 tablet doxycycline hyclate 100 mg tablet 100 mg PO BID #20 tabs 05/14/22 doxycycline hyclate 100 mg tablet 100 mg PO BID #20 tabs 05/14/22 oxycodone-acetaminophen 5 mg-325 1 tab PO Q6H PRN pain #15 tabs 07/05/22 mg tablet Allergies Allergy/AdvReac Type Severity Reaction Status Date / Time Sulfa (Sulfonamide Allergy Unknown RASH Verified 09/19/22 21:39 Antibiotics) trimethoprim Allergy Unknown RASH Verified 09/19/22 21:39 Review of Systems Constitutional Constitutional: Reports system reviewed and no additional complaints, except as documented Respiratory Respiratory: Reports system reviewed and no additional complaints, except as documented Integumentary/Breasts Skin/Breast: Reports system reviewed and no additional complaints, except as documented Hematologic/Lymphatic On Anticoagulants: No Patient History Medical History Abrasion of forehead Afib Alzheimers disease Arthritis Contusion of left hand Easy bruisability Eczema Elevated blood-pressure reading without diagnosis of hypertension GERD (gastroesophageal reflux disease) Gout Neuropathy ANA MARIA (obstructive sleep apnea) Pain Pneumonia Psoriasis Sinus drainage Skin cancer Vomiting Surgical History H/O inguinal hernia repair (~2007) History of bladder surgery (1994) History of left knee replacement (~2007) History of repair of hiatal hernia (~2010) S/P lumbar fusion Social History household members: spouse Smoking Status: Never smoker alcohol intake: never Smoking Status: Never smoker alcohol intake frequency: holidays/special occasions only Substance Use Type: does not use Exam Initial Vital Signs Initial Vital Signs: Vital Signs Temperature 97.6 F 09/19/22 21:37 Pulse Rate 70 09/19/22 21:37 Respiratory Rate 18 09/19/22 21:37 Blood Pressure 149/75 H 09/19/22 21:37 Pulse Oximetry 99 09/19/22 21:37 Oxygen Delivery Method Room Air 09/19/22 21:37 HENWV Head: normal to inspection and normocephalic Skin Other: There is a small insertion site at the femoral artery location consistent with his stated procedure earlier today. There is oozing from the area. There is some minimal bruising around the area would does appear to be a small hematoma under the skin. Neuro General: patient alert, patient awake and moves all extremities Course Orders Ordered: Discontinued Medications Ondansetron HCl (Ondansetron 4 Mg Odt) 4 mg SL NOW ONE Stop: 09/19/22 22:31 Last Admin: 09/19/22 22:39 Dose: 4 mg Documented By: PETE Vital Signs Vital signs: Vital Signs - 8 hr 09/19/22 21:37 09/19/22 21:53 09/19/22 21:55 Temperature 97.6 F Pulse Rate 70 70 Respiratory Rate 18 Blood Pressure 149/75 H 163/87 H Pulse Oximetry 99 99 Oxygen Delivery Method Room Air 09/19/22 21:55 09/19/22 22:00 09/19/22 22:30 Temperature Pulse Rate 70 70 122 H Respiratory Rate Blood Pressure Pulse Oximetry 98 98 97 Oxygen Delivery Method 09/19/22 23:00 09/19/22 23:30 09/20/22 00:00 Temperature Pulse Rate 75 87 70 Respiratory Rate Blood Pressure Pulse Oximetry 97 97 98 Oxygen Delivery Method 09/20/22 00:30 09/20/22 01:00 Temperature Pulse Rate 70 70 Respiratory Rate Blood Pressure Pulse Oximetry 98 98 Oxygen Delivery Method MDM - Recheck/Abnormal Lab/Rx MDM Narrative Medical decision making narrative: Patient was here in the emergency department for several hours. Multiple attempts at putting pressure over the area were unsuccessful. I even tried some topical Surgicel without any resolution of the symptoms. The subcutaneous hematoma does not appear to be getting bigger. The bruising does not appear to be worsening. His vital signs are unremarkable. I did discuss the case with Dr. De La Cruz on-call for cardiology who was actually the provider who did his procedure today. He recommended direct pressure for 30 minutes being held by an individual and potentially a ultrasound of the area. We were able to put direct pressure over the area with Orthopedic sand bags for approximately 45 minutes. The same bags were removed and he was observed for a period of time afterwards without apparent rebleeding. He did ambulate a small amount around the department and re-evaluation again shows no rebleeding. Because we were able to get the bleeding to stop we will hold on an ultrasound for now. The patient was given specific and strict return precautions. Both he and his who were at bedside expressed understanding and agreement with plan. Discharge Plan Departure Patient Disposition: Home Clinical Impression: Hemorrhage postprocedure Activity Restrictions/Additional Instructions: I do recommend that you follow all of the postprocedure instructions given to you by Dr. De La Cruz. Also recommend that you take it easy for the next couple days like we discussed. Return to the emergency department for new or worsening symptoms. Prescriptions: No Action allopurinol 100 MG tablet 100 mg PO DAILY Qty: 0 ascorbic acid (vitamin C) [Vitamin C] 1,000 mg Tablet 1,000 mg PO DAILY Qty: 0 cyanocobalamin (vitamin B-12) [Vitamin B-12] 2,500 mcg Tablet, Sublingual 2,500 mcg SUBLINGUAL DAILY Qty: 0 cholecalciferol (vitamin D3) [Vitamin D3] 125 mcg (5,000 unit) Tablet 125 mcg PO DAILY Qty: 0 oxycodone 5 mg tablet 5 mg PO Q8H PRN (Reason: pain) Qty: 10 0RF pantoprazole 40 mg tablet,delayed release (DR/EC) 40 mg PO DAILY Eliquis 5 mg tablet 5 mg PO DAILY atorvastatin 40 mg tablet 40 mg PO DAILY losartan 25 mg tablet 25 mg PO DAILY elderberry fruit 200 mg capsule 100 mg PO DAILY aspirin [Adult Aspirin Regimen] 81 mg tablet,delayed release (DR/EC) 81 mg PO DAILY zinc 50 mg tablet 50 mg PO DAILY doxycycline hyclate 100 mg tablet 100 mg PO BID Qty: 20 0RF doxycycline hyclate 100 mg tablet 100 mg PO BID Qty: 20 0RF tramadol [Ultram] 50 mg tablet 50 mg PO Q6H PRN (Reason: pain) Qty: 10 0RF ibuprofen 200 mg tablet 400 mg PO Q6H Qty: 60 0RF acetaminophen [Tylenol] 325 mg capsule 650 mg PO QID PRN (Reason: pain) Qty: 60 0RF tramadol 50 mg tablet 50 mg PO Q6H PRN (Reason: pain) Qty: 30 0RF acetaminophen-codeine 300-30 mg tablet 1 tab PO BID PRN (Reason: pain) Qty: 14 0RF Rx Instructions: prescription 2 of 2 oxycodone-acetaminophen 5-325 mg tablet 1 tab PO Q6H PRN (Reason: pain) Qty: 15 0RF Referrals: Garrett Da Silva DO [Primary Care Provider] - Stand Alone Forms: Patient Portal/API
[2022-09-19] MEDS: ONDANSETRON 4 MG ODT SL (22:39)
[2022-09-20] VITALS: PULSE 70; O2SAT 98
[2022-09-20 00:30] VITALS: PULSE 70; O2SAT 98
[2022-09-20 01:00] VITALS: PULSE 70; O2SAT 98
--- NOTE | 2022-09-20 03:00 | PC.NURSE ---
After 30 minutes of direct pressure with weights to Right groin site, bleeding has stopped. Patient ambulated down hallway with FWW, steady gait noted. Groin site inspected again, no new bleeding seen. Patient agreeable with discharge plan.
== END 2022-09-20 03:20 | disposition home or self-care (01) ==
PROVIDERS: Emergency Provider Emergency Medicine; PCP Family Medicine
DX: L76.22 Postprocedural hemorrhage of skin and subcutaneous tissue following other procedure (principal); Z95.0 Presence of cardiac pacemaker
CPT/HCPCS: 99283

== ENCOUNTER 2023-05-12 07:02 | Day surgery (SDC) | payer MEDICARE, OTHER, SELFPAY ==
[2023-05-12 07:26] VITALS: BMI 20.5
[2023-05-12 07:33] VITALS: BP 133/75; PULSE 77; RESP 16; TEMP 36.1; O2SAT 98
--- NOTE | 2023-05-12 07:40 | P.HP_ITS ---
History of Present Illness History of Present Illness Date Patient Seen: 05/12/23 Time Patient Seen: 07:41 Chief complaint: Colonoscopy Narrative: 87-year-old man with PMH AFib on anticoagulation found to have microscopic blood per rectum here for diagnostic colonoscopy. No abdominal pain unintentional weight loss. No personal or family history of intestinal malignancy. [facility] Medical History Alzheimers disease Skin cancer Easy bruisability Eczema Neuropathy Pain ANA MARIA (obstructive sleep apnea) Sinus drainage Pneumonia Afib Arthritis Vomiting Psoriasis GERD (gastroesophageal reflux disease) Gout Elevated blood-pressure reading without diagnosis of hypertension Contusion of left hand Abrasion of forehead Surgical History History of left knee replacement (~2007) History of repair of hiatal hernia (~2010) History of bladder surgery (1994) H/O inguinal hernia repair (~2007) S/P lumbar fusion Social History household members: spouse Smoking Status: Never smoker alcohol intake: never Meds Home Medications and Allergies Home Medications Medication Instructions Recorded Confirmed Type allopurinol 100 mg tablet 100 mg PO DAILY ##0 07/28/12 11/19/20 History ascorbic acid (vitamin C) 1,000 mg 1,000 mg PO DAILY ##0 08/03/12 11/19/20 History tablet (Vitamin C) cholecalciferol (vitamin D3) 125 125 mcg PO DAILY ##0 08/03/12 11/19/20 History mcg (5,000 unit) tablet (Vitamin D3) cyanocobalamin (vitamin B-12) 2,500 mcg sublingual DAILY ##0 08/03/12 11/19/20 History 2,500 mcg sublingual tablet (Vitamin B-12) tramadol 50 mg tablet (Ultram) 50 mg PO Q6H PRN pain #10 tabs 09/23/20 11/19/20 Rx apixaban 5 mg tablet (Eliquis) 5 mg PO DAILY 10/11/20 05/12/23 History aspirin 81 mg tablet,delayed 81 mg PO DAILY 10/11/20 11/19/20 History release (Adult Aspirin Regimen) atorvastatin 40 mg tablet 40 mg PO DAILY 10/11/20 05/12/23 History elderberry fruit 200 mg capsule 100 mg PO DAILY 10/11/20 11/19/20 History losartan 25 mg tablet 25 mg PO DAILY 10/11/20 05/12/23 History pantoprazole 40 mg tablet,delayed 40 mg PO DAILY 10/11/20 11/19/20 History release zinc 50 mg tablet 50 mg PO DAILY 10/11/20 11/19/20 History acetaminophen 325 mg capsule 650 mg (2 x 325 mg) PO QID PRN 10/30/20 11/19/20 Rx (Tylenol) pain #60 caps ibuprofen 200 mg tablet 400 mg (2 x 200 mg) PO Q6H #60 tabs 10/30/20 11/19/20 Rx tramadol 50 mg tablet 50 mg PO Q6H PRN pain #30 tabs 10/30/20 11/19/20 Rx oxycodone 5 mg tablet 5 mg PO Q8H PRN pain #10 tabs 11/05/20 11/19/20 Rx acetaminophen 300 mg-codeine 30 mg 1 tab PO BID PRN pain #14 tabs 05/10/21 Rx tablet doxycycline hyclate 100 mg tablet 100 mg PO BID #20 tabs 05/14/22 Rx doxycycline hyclate 100 mg tablet 100 mg PO BID #20 tabs 05/14/22 Rx oxycodone-acetaminophen 5 mg-325 1 tab PO Q6H PRN pain #15 tabs 07/05/22 Rx mg tablet sodium,potassium,mag sulfates 17.5 See Rx Instructions PO .COMPLEX 03/26/23 Rx gram-3.13 gram-1.6 gram oral soln #354 mL (Suprep Bowel Prep Kit) Allergies Allergy/AdvReac Type Severity Reaction Status Date / Time Sulfa (Sulfonamide Allergy Unknown RASH Verified 09/19/22 21:39 Antibiotics) trimethoprim Allergy Unknown RASH Verified 09/19/22 21:39 Exam Vital Signs (past 8 hours): - 05/12/23 07:33 Temperature 96.9 F L Pulse Rate 77 Respiratory Rate 16 Blood Pressure 133/75 Pulse Oximetry 98 Oxygen Delivery Method Room Air Oxygen Delivery Method Room Air Narrative Exam Narrative: General adult man alert oriented no acute distress Chest nonlabored respiration Extremities warm well perfused Assessment & Plan Assessment and plan (1) Blood per rectum: Status: Acute Assessment & Plan narrative: Diagnostic colonoscopy is recommended. Technical details were discussed. Risks, benefits, alternatives explained. Risks including but not limited to myocardial infarction, aspiration, bleeding, pain, missed lesion, incomplete examination, need for further radiographic studies, colonic perforation, and need for major abdominal surgery were discussed. All questions were answered to their satisfaction, and they are in agreement with this plan.
[2023-05-12] MEDS: LACTATED RINGERS 1,000 ML 42 ML IV (07:47)
[2023-05-12 08:10] VITALS: BP 119/68; PULSE 70; RESP 24; TEMP 36.1; O2SAT 97
--- NOTE | 2023-05-12 08:12 | P.OP.COLON_ITS ---
Operative Date/Time/Diagnoses Date of procedure: 05/12/23 Time of procedure: 08:12 Pre-op diagnosis: Rectal bleeding Post-op diagnosis: other (Internal hemorrhoids) Procedure & Clinicians Study performed: Diagnostic colonoscopy Same procedure as scheduled: Yes Indications: Rectal bleeding Surgeon: Enio Thao Procedure Notes Procedure in detail: The history and physical was performed/updated and the patient is ASA class is 3. The procedure was discussed in detail with the patient. Potential risks complications including infection, bleeding, missed diagnosis, perforation, need for surgery, and were explained. Their questions were answered and informed consent was obtained. Patient was brought to the procedure room and placed standard monitoring equipment. The patient's vital signs were monitored continuously throughout the entire procedure. Prior to starting time-out was performed. The patient was placed in the left lateral recumbent position. Procedural sedation was administered by anesthesia. Examination began with a thorough inspection of the perianal area there was no evidence of fissures, fistulae, external hemorrhoids or cutaneous malignancy. The colonoscopy scope was then placed into the anal canal and was advanced to the cecum, which was identified by the ileocecal valve, the appendiceal orifice and the confluence of the taenia. The scope was then slowly withdrawn examining colon thoroughly in all directions, irrigating it of any residual stool. The scope was retroflexed within the rectum The patient tolerated the procedure well. They will be discharged once criteria are met. The prep was of fair quality. The withdrawl time was 7 minutes. FINDINGS * Extensive diverticulosis of the descending colon * Grade 2 internal hemorrhoids no active hemorrhage Specimen(s): none sent Impression: Normal colonoscopy Post-procedure Plan for aftercare: No further colonoscopy necessary unless symptomatic Disposition: same day surgery
[2023-05-12 08:15] VITALS: BP 127/91; PULSE 70; RESP 19; O2SAT 98
[2023-05-12 08:20] VITALS: BP 136/85; PULSE 70; RESP 18; O2SAT 97
[2023-05-12 08:23] VITALS: BP 144/86; PULSE 70; RESP 18; TEMP 36.9; O2SAT 97
== END 2023-05-12 08:45 | disposition home or self-care (01) ==
PROVIDERS: PCP Nurse Practitioner; Referring Provider Surgery; Visit Provider Surgery
PROC: 0DJD8ZZ Inspection of Lower Intestinal Tract, Via Natural or Artificial Opening Endoscopic (ICD-10-PCS; CPT 45378; principal; 2023-05-12 07:45)
DX: K62.5 Hemorrhage of anus and rectum (principal); K64.1 Second degree hemorrhoids; K57.30 Diverticulosis of large intestine without perforation or abscess without bleeding; I48.91 Unspecified atrial fibrillation; G47.33 Obstructive sleep apnea (adult) (pediatric)
CPT/HCPCS: 45378; 93005; 93010; J2704

== ENCOUNTER 2023-11-12 21:18 | Emergency (ER) | payer MEDICARE, OTHER, SELFPAY ==
[2023-11-12] VITALS (7 sets, daily range): BP systolic 115–144; BP diastolic 69–79; PULSE 69–74; RESP 20–25; O2SAT 97–99; BMI 19.8
--- NOTE | 2023-11-12 21:35 | ED_ITS ---
HPI - General Adult General Chief complaint: Syncope Stated complaint: GLF Time Seen by Provider: 11/12/23 21:32 Source: patient, family and EMS Mode of arrival: EMS Limitations: no limitations History of Present Illness HPI narrative: Patient is an 88-year-old male. He is on anticoagulation. Arrives by EMS for evaluation of wounds that he sustained when he had a syncopal episode at home. Patient states he does not remember the event. He did fall and hit his head. He sustained a cut to his head. No neck pain. No extremity injuries. His was in the other room and heard him fall. He was unable to get up on his own. He does use a walker at baseline. Reports no hip pain or arm pain. He arrives not on a backboard and not in a cervical collar. He was found to be hypoglycemic in the 40s by EMS. He has no prior history of this. He did receive dextrose by EMS prior to arrival. At the time of my evaluation he states he is feeling normal. Related Data Home Medications Medication Instructions Recorded Confirmed allopurinol 100 mg tablet 100 mg PO DAILY ##0 07/28/12 11/19/20 ascorbic acid (vitamin C) 1,000 mg 1,000 mg PO DAILY ##0 08/03/12 11/19/20 tablet (Vitamin C) cholecalciferol (vitamin D3) 125 125 mcg PO DAILY ##0 08/03/12 11/19/20 mcg (5,000 unit) tablet (Vitamin D3) cyanocobalamin (vitamin B-12) 2,500 mcg sublingual DAILY ##0 08/03/12 11/19/20 2,500 mcg sublingual tablet (Vitamin B-12) apixaban 5 mg tablet (Eliquis) 5 mg PO DAILY 10/11/20 05/12/23 aspirin 81 mg tablet,delayed 81 mg PO DAILY 10/11/20 11/19/20 release (Adult Aspirin Regimen) atorvastatin 40 mg tablet 40 mg PO DAILY 10/11/20 05/12/23 elderberry fruit 200 mg capsule 100 mg PO DAILY 10/11/20 11/19/20 losartan 25 mg tablet 25 mg PO DAILY 10/11/20 05/12/23 pantoprazole 40 mg tablet,delayed 40 mg PO DAILY 10/11/20 11/19/20 release zinc 50 mg tablet 50 mg PO DAILY 10/11/20 11/19/20 Previous Rx's Medication Instructions Recorded tramadol 50 mg tablet (Ultram) 50 mg PO Q6H PRN pain #10 tabs 09/23/20 acetaminophen 325 mg capsule 650 mg (2 x 325 mg) PO QID PRN 10/30/20 (Tylenol) pain #60 caps ibuprofen 200 mg tablet 400 mg (2 x 200 mg) PO Q6H #60 tabs 10/30/20 tramadol 50 mg tablet 50 mg PO Q6H PRN pain #30 tabs 10/30/20 oxycodone 5 mg tablet 5 mg PO Q8H PRN pain #10 tabs 11/05/20 acetaminophen 300 mg-codeine 30 mg 1 tab PO BID PRN pain #14 tabs 05/10/21 tablet doxycycline hyclate 100 mg tablet 100 mg PO BID #20 tabs 05/14/22 doxycycline hyclate 100 mg tablet 100 mg PO BID #20 tabs 05/14/22 oxycodone-acetaminophen 5 mg-325 1 tab PO Q6H PRN pain #15 tabs 07/05/22 mg tablet tramadol 50 mg tablet 50 mg PO Q8H PRN pain #10 tabs 11/13/23 Allergies Allergy/AdvReac Type Severity Reaction Status Date / Time Sulfa (Sulfonamide Allergy Unknown RASH Verified 09/19/22 21:39 Antibiotics) trimethoprim Allergy Unknown RASH Verified 09/19/22 21:39 Review of Systems Review of Systems ROS Unobtainable: All systems reviewed & are unremarkable except as noted in HPI and below Patient History Medical History Alzheimers disease Skin cancer Easy bruisability Eczema Neuropathy Pain ANA MARIA (obstructive sleep apnea) Sinus drainage Pneumonia Afib Arthritis Vomiting Psoriasis GERD (gastroesophageal reflux disease) Gout Elevated blood-pressure reading without diagnosis of hypertension Contusion of left hand Abrasion of forehead Surgical History History of left knee replacement (~2007) History of repair of hiatal hernia (~2010) History of bladder surgery (1994) H/O inguinal hernia repair (~2007) S/P lumbar fusion Social History household members: spouse Smoking Status: Never smoker alcohol intake: never Smoking Status: Never smoker alcohol intake frequency: holidays/special occasions only Substance Use Type: does not use Exam Initial Vital Signs Initial Vital Signs: Vital Signs Pulse Rate 70 11/12/23 21:26 Respiratory Rate 21 11/12/23 21:26 Pulse Oximetry 97 11/12/23 21:26 Const General: comfortable and No ill appearing HENMT Head: laceration Eyes Periorbital: periorbital findings normal Pupils: PERRL EOM: EOM intact bilaterally Resp Effort & Inspection: normal respiratory effort Cardio Rate: regular rate Skin Other: Patient with a 4 cm ? C? shape laceration to his left parietal region of his scalp. Neuro General: patient alert and patient awake Extrem Other: Moves all 4 extremities. Pelvis is stable. Procedures Laceration Repair Laceration 1: Site: scalp Side (If applicable): left Size (cm): 4 Description: flap Depth: simple, single layer Local Anesthetic: lidocaine 1% and with epi Amount of anesthesia used (mL): 4 Pre-repair: wound explored Skin layer closed with: nylon Skin layer suture size: 4-0 Number of sutures: 6 Technique: simple, interrupted Course Orders Ordered: ED Orders 11/12/23 21:36 CT cervical spine wo con Stat CT head/brain wo con Stat 11/12/23 21:37 EKG-12 Lead Stat 11/12/23 21:58 Complete Blood Count AUTO DIFF Stat Comprehensive Metabolic Panel Stat Lipase Stat Discontinued Medications Bacitracin (Bacitracin Oint 0.9 Gm Pckt) 1 applic TOP NOW ONE Stop: 11/12/23 21:37 Last Admin: 11/12/23 21:42 Dose: 1 applic Documented By: KAE Dextrose (Dextrose 50 % In Water 25 Gm/50 Ml Syringe) 25 gm IV NOW ONE Stop: 11/12/23 21:33 Last Admin: 11/12/23 21:42 Dose: 25 gm Documented By: KAE Lidocaine/Epinephrine (Lidocaine 2% W/Epi Inj 10 Ml Vial) 20 ml INJ INTRA-OP ONE Stop: 11/12/23 21:37 Last Admin: 11/12/23 21:44 Dose: 20 ml Documented By: KAE Tramadol HCl (Tramadol 50 Mg Prepack) 1 bottle MISC DIRECTED ONE Stop: 11/13/23 00:51 Last Admin: 11/13/23 01:02 Dose: 1 bottle Documented By: LISA Vital Signs Vital signs: Vital Signs - 8 hr 11/12/23 21:26 11/12/23 21:30 11/12/23 21:30 Pulse Rate 70 74 Respiratory Rate 21 20 Blood Pressure 144/79 H 140/76 Pulse Oximetry 97 98 Oxygen Delivery Method Room Air 11/12/23 21:30 11/12/23 22:00 11/12/23 22:00 Pulse Rate 69 69 Respiratory Rate 24 Blood Pressure 127/69 Pulse Oximetry 97 98 Oxygen Delivery Method 11/12/23 22:30 11/12/23 23:00 11/12/23 23:02 Pulse Rate 69 69 Respiratory Rate 23 25 H Blood Pressure 115/72 Pulse Oximetry 99 98 Oxygen Delivery Method 11/12/23 23:02 11/12/23 23:30 11/12/23 23:30 Pulse Rate 69 69 Respiratory Rate 24 Blood Pressure 119/74 Pulse Oximetry 98 98 Oxygen Delivery Method 11/13/23 00:00 11/13/23 00:00 11/13/23 00:30 Pulse Rate 69 69 Respiratory Rate 21 25 H Blood Pressure 104/64 Pulse Oximetry 98 99 Oxygen Delivery Method 11/13/23 00:30 Pulse Rate Respiratory Rate Blood Pressure 104/73 Pulse Oximetry Oxygen Delivery Method Medical Decision Making Lab Data Lab results reviewed: Yes I reviewed the patient's lab results. 11/12/23 21:58 11/12/23 21:58 Labs: Lab Results 11/12/23 Range/Units 21:58 WBC 14.2 H (4.5-11.0) X10^3/uL RBC 3.53 L (4.5-5.9) X10^6/uL Hgb 11.4 L (13.5-17.5) g/dL Hct 34.5 L (41-53) % MCV 97.7 (80-100) fL MCH 32.2 (26-34) PG MCHC 32.9 (30-36) % RDW 15.2 H (11.6-14.8) % Plt Count 203 (150-400) X10^3/uL Neut % (Auto) 86.7 H (50-75) % Lymph % (Auto) 5.9 L (25-40) % [place] % (Auto) 6.3 (3-14) % Eos % (Auto) 0.7 L (2-4) % Baso % (Auto) 0.4 (0-2) % Neut # (Auto) 92300 H (6817-6056) /uL Lymph # (Auto) 800 L (1774-1868) /uL [place] # (Auto) 900 (0-900) /uL Eos # (Auto) 100 (0-450) /uL Baso # (Auto) 100 (0-100) /uL Sodium 134 L (137-145) mmol/L Potassium 3.7 (3.4-5.1) mmol/L Chloride 101 (98-107) mmol/L Carbon Dioxide 26 (22-32) mmol/L BUN 29 H (9-20) mg/dL Creatinine 1.49 H (0.66-1.25) mg/dL Estimated GFR 45 L (>60) mL/min BUN/Creatinine Ratio 19.5 (6-22) Glucose 251 H (80-110) mg/dL Calcium 8.4 (8.4-10.2) mg/dL Total Bilirubin 0.6 (0.2-1.3) mg/dL AST 23 (17-59) IU/L ALT 19 (<50) IU/L Alkaline Phosphatase 126 (38-126) U/L Total Protein 6.4 (6.3-8.2) g/dL Albumin 3.7 (3.5-5.0) g/dL Globulin 2.7 (1.7-4.1) g/dL Albumin/Globulin Ratio 1.4 (1.0-2.8) Lipase 20 L (23-300) U/L Point of Care Testing Glucose POC 136 Point of care testing: Point of Care Testing Glucose POC [address] scan - head: Radiologist's Impression: PROCEDURE: CT HEAD/BRAIN WO CON INDICATIONS: fall on thinners TECHNIQUE: Noncontrast 4.5 mm thick angled axial sections acquired from the foramen magnum to the vertex, with coronal and sagittal reformats. For radiation dose reduction, the following was used: automated exposure control, adjustment of mA and/or kV according to patient size. COMPARISON: [facility], CT, HEAD WITHOUT CONTRAST, 03/19/2016, 16:43. FINDINGS: Image quality: Diagnostic. CSF spaces: Basal cisterns are patent. No extra-axial fluid collections. The ventricles are symmetric in size and shape. Brain: No intracranial bleeds or masses. There is cerebral volume loss for age, with resultant ventricular and sulcal prominence. There are periventricular and deep white matter chronic small vessel ischemic changes. There is intracranial internal carotid artery atherosclerosis. Skull and face: Calvarium and visualized facial bones appear intact, without suspicious lesions. Sinuses: Visualized sinuses and mastoids are clear. IMPRESSION: No acute intracranial pathology. CT - cervical spine: Radiologist's Impression: PROCEDURE: CT CERVICAL SPINE WO CON INDICATIONS: fall on thinners TECHNIQUE: Noncontrast 3 mm thick sections acquired from the skull base to the T4 level. Sagittal and coronal reformats were then constructed. For radiation dose reduction, the following was used: automated exposure control, adjustment of mA and/or kV according to patient size. COMPARISON: None. FINDINGS: Image quality: Patient motion artifact. Bones: No fractures or dislocations. Visualized superior ribs are intact. Soft tissues: Prevertebral soft tissues are normal in thickness. No paravertebral hematomas. No apical pneumothoraces. IMPRESSION: No displaced fracture or traumatic subluxation. ECG Data Attestation: I personally reviewed and interpreted this ECG as follows: Interpretation: Ventricularly paced Rate is 73 MDM Narrative Medical decision making narrative: Patient does have leukocytosis but I suspect that this is because of his episode of hypoglycemia and also of the trauma that brought him into the emergency department. His CT scan of his head and neck are unremarkable. The scalp laceration was closed as described above in the family he was given care instructions and return precautions. Patient has now maintained his blood sugar. Was able to ambulate around the emergency department with a walker at his baseline. Will discharge patient home with his with care instructions return precautions. They expressed understanding and agreement with plan. Discharge Plan Departure Patient Disposition: Home Clinical Impression: Hypoglycemia, Laceration of scalp, Fall Instructions: DI for Laceration Repair of the Scalp, How to Prevent Falls Activity Restrictions/Additional Instructions: The stitches that were placed today in her scalp to need to be removed in approximately 10 days. You can go to the walk-in clinic or your primary doctor for this. You can shower like normal. You can put a topical antibiotic ointment over the area such as Neosporin. Return to the emergency department for new symptoms. Prescriptions: New tramadol 50 mg tablet 50 mg PO Q8H PRN (Reason: pain) Qty: 10 0RF No Action allopurinol 100 MG tablet 100 mg PO DAILY Qty: 0 ascorbic acid (vitamin C) [Vitamin C] 1,000 mg Tablet 1,000 mg PO DAILY Qty: 0 cyanocobalamin (vitamin B-12) [Vitamin B-12] 2,500 mcg Tablet, Sublingual 2,500 mcg SUBLINGUAL DAILY Qty: 0 cholecalciferol (vitamin D3) [Vitamin D3] 125 mcg (5,000 unit) Tablet 125 mcg PO DAILY Qty: 0 oxycodone 5 mg tablet 5 mg PO Q8H PRN (Reason: pain) Qty: 10 0RF pantoprazole 40 mg tablet,delayed release (DR/EC) 40 mg PO DAILY Eliquis 5 mg tablet 5 mg PO DAILY atorvastatin 40 mg tablet 40 mg PO DAILY losartan 25 mg tablet 25 mg PO DAILY elderberry fruit 200 mg capsule 100 mg PO DAILY aspirin [Adult Aspirin Regimen] 81 mg tablet,delayed release (DR/EC) 81 mg PO DAILY zinc 50 mg tablet 50 mg PO DAILY doxycycline hyclate 100 mg tablet 100 mg PO BID Qty: 20 0RF doxycycline hyclate 100 mg tablet 100 mg PO BID Qty: 20 0RF tramadol [Ultram] 50 mg tablet 50 mg PO Q6H PRN (Reason: pain) Qty: 10 0RF ibuprofen 200 mg tablet 400 mg PO Q6H Qty: 60 0RF acetaminophen [Tylenol] 325 mg capsule 650 mg PO QID PRN (Reason: pain) Qty: 60 0RF tramadol 50 mg tablet 50 mg PO Q6H PRN (Reason: pain) Qty: 30 0RF acetaminophen-codeine 300-30 mg tablet 1 tab PO BID PRN (Reason: pain) Qty: 14 0RF Rx Instructions: prescription 2 of 2 oxycodone-acetaminophen 5-325 mg tablet 1 tab PO Q6H PRN (Reason: pain) Qty: 15 0RF Referrals: Martha Khanna ARNP [Primary Care Provider] - Stand Alone Forms: Patient Portal/API
--- NOTE | 2023-11-12 21:37 | EKG_ITS ---
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
[2023-11-12] MEDS: DEXTROSE 50 % IN WATER 25 GM/50 ML SYRINGE IV (21:42)
[2023-11-12] MEDS: BACITRACIN OINT 0.9 GM PCKT 1 APPLIC TOP (21:42)
[2023-11-12] MEDS: LIDOCAINE 2% W/EPI INJ 10 ML VIAL 20 ML INJ (21:44)
[2023-11-12 22:09] LABS: Add Manual Diff / Slide Review NO; Basophils Absolute Auto 100 /uL (0-100); Basophils Percent Auto 0.4 % (0-2); Eosinophils Absolute Auto 100 /uL (0-450); Eosinophils Percent Auto 0.7 % (2-4); Hematocrit 34.5 % (41-53); Hemoglobin 11.4 g/dL (13.5-17.5); Lymphocytes Absolute Auto 800 /uL (1100-4500); Lymphocytes Percent Auto 5.9 % (25-40); Mean Corpuscular HGB Conc 32.9 % (30-36); Mean Corpuscular Hemoglobin 32.2 PG (26-34); Mean Corpuscular Volume 97.7 fL (80-100); Monocytes Absolute Auto 900 /uL (0-900); Monocytes Percent Auto 6.3 % (3-14); Neutrophils Absolute Auto 12300 /uL (1500-7000); Neutrophils Percent Auto 86.7 % (50-75); Platelet Count 203 X10^3/uL (150-400); Red Blood Cell Count 3.53 X10^6/uL (4.5-5.9); Red Cell Distribution Width 15.2 % (11.6-14.8); White Blood Cell Count 14.2 X10^3/uL (4.5-11.0)
[2023-11-12 22:19] LABS: Alanine Aminotransferase 19 IU/L (<50); Albumin 3.7 g/dL (3.5-5.0); Albumin Globulin Ratio 1.4 (1.0-2.8); Alkaline Phosphatase 126 U/L (38-126); Aspartate Aminotransferase 23 IU/L (17-59); BUN Creatinine Ratio 19.5 (6-22); Bilirubin Total 0.6 mg/dL (0.2-1.3); Blood Urea Nitrogen 29 mg/dL (9-20); Calcium 8.4 mg/dL (8.4-10.2); Carbon Dioxide 26 mmol/L (22-32); Chloride 101 mmol/L (98-107); Estimated Glomerular Filt Rate 45 mL/min (>60); Globulin 2.7 g/dL (1.7-4.1); Glucose 251 mg/dL (80-110); HEMOLYSIS < 15 (0-50); Lipase 20 U/L (23-300); Potassium 3.7 mmol/L (3.4-5.1); Sodium 134 mmol/L (137-145); Total Protein 6.4 g/dL (6.3-8.2)
[2023-11-13] VITALS: BP 104/64; PULSE 69; RESP 21; O2SAT 98
[2023-11-13 00:30] VITALS: BP 104/73; PULSE 69; RESP 25; O2SAT 99
[2023-11-13] MEDS: TRAMADOL 50 MG PREPACK 1 BOTTLE MISC (01:02)
== END 2023-11-13 01:08 | disposition home or self-care (01) ==
PROVIDERS: Emergency Provider Emergency Medicine; PCP Nurse Practitioner
DX: E16.2 Hypoglycemia, unspecified (principal); S01.01XA Laceration without foreign body of scalp, initial encounter; S09.90XA Unspecified injury of head, initial encounter; R55 Syncope and collapse; R07.9 Chest pain, unspecified; Z79.01 Long term (current) use of anticoagulants
CPT/HCPCS: 36415; 70450; 72125; 80053; 82962; 83690; 85025; 93005; 93010; 99284

== ENCOUNTER 2024-08-10 23:47 | Emergency (ER) | payer MEDICARE, OTHER, SELFPAY ==
[2024-08-11] VITALS (7 sets, daily range): BP systolic 143–161; BP diastolic 71–86; PULSE 66–70; RESP 15; TEMP 36.9; O2SAT 95–97; BMI 19.5
--- NOTE | 2024-08-11 01:12 | PC.NURSE ---
Pt had surgery with [facility] Plastic surgeon 08/10/24 @ 11 am. Since taking at home pain medications has had N/V. Took 2-4mg SL Zofran without relief.
--- NOTE | 2024-08-11 02:30 | ED.NAVMDI ---
HPI - Nausea/Vomiting/Diarrhea General Chief complaint: Nausea/Vomiting/Diarrhea Stated complaint: had surgery sick and bruised, vomiting, Time Seen by Provider: 08/11/24 00:18 Source: patient and family Mode of arrival: Wheelchair Limitations: no limitations History of Present Illness HPI Narrative: 89-year-old male hypertension, dyslipidemia, atrial fibrillation on apixaban. Patient had malignant melanoma removed by Dr. Retana at 11:00 a.m. today 08/10/2024, had an area with 2 cm margins removed. Patient and state it went down to the bone. Since then patient has had some increased bruising which is tract underneath the eyes. Swelling had increased a little bit tonight but states it does not seem to be rapidly worsening. Patient started having nausea and vomiting after having oxycodone. Patient had persistent vomiting throughout the day. She did give him a dose of oral ondansetron but shortly thereafter gave him a dose of tramadol instead of oxycodone which seemed to worse in the vomiting. He has stopped vomiting he states his nausea is improving. His last dose of ondansetron was at 9:00 p.m.. He denies any fevers he has some pain at the site of his incision but states no significant headache. He notes he can not open his left eye secondary to swelling but denies any vision changes when it is open to for him, denies any chest pain or shortness of breath. No abdominal back or flank pain. No other GI or urinary symptoms. No other atypical bleeding. They have not appreciated a lot of output of drainage or bleeding from the site. Patient states he stopped his apixaban on Thursday. Reports allergy to Bactrim. He was accompanied by his . Related Data Home Medications Medication Instructions Recorded Confirmed allopurinol 100 mg tablet 100 mg PO DAILY ##0 07/28/12 11/19/20 ascorbic acid (vitamin C) 1,000 mg 1,000 mg PO DAILY ##0 08/03/12 11/19/20 tablet (Vitamin C) cholecalciferol (vitamin D3) 125 125 mcg PO DAILY ##0 08/03/12 11/19/20 mcg (5,000 unit) tablet (Vitamin D3) cyanocobalamin (vitamin B-12) 2,500 mcg sublingual DAILY ##0 08/03/12 11/19/20 2,500 mcg sublingual tablet (Vitamin B-12) apixaban 5 mg tablet (Eliquis) 5 mg PO DAILY 10/11/20 05/12/23 aspirin 81 mg tablet,delayed 81 mg PO DAILY 10/11/20 11/19/20 release (Adult Aspirin Regimen) atorvastatin 40 mg tablet 40 mg PO DAILY 10/11/20 05/12/23 elderberry fruit 200 mg capsule 100 mg PO DAILY 10/11/20 11/19/20 losartan 25 mg tablet 25 mg PO DAILY 10/11/20 05/12/23 pantoprazole 40 mg tablet,delayed 40 mg PO DAILY 10/11/20 11/19/20 release zinc 50 mg tablet 50 mg PO DAILY 10/11/20 11/19/20 Previous Rx's Medication Instructions Recorded tramadol 50 mg tablet (Ultram) 50 mg PO Q6H PRN pain #10 tabs 09/23/20 acetaminophen 325 mg capsule 650 mg (2 x 325 mg) PO QID PRN 10/30/20 (Tylenol) pain #60 caps ibuprofen 200 mg tablet 400 mg (2 x 200 mg) PO Q6H #60 tabs 10/30/20 tramadol 50 mg tablet 50 mg PO Q6H PRN pain #30 tabs 10/30/20 oxycodone 5 mg tablet 5 mg PO Q8H PRN pain #10 tabs 11/05/20 acetaminophen 300 mg-codeine 30 mg 1 tab PO BID PRN pain #14 tabs 05/10/21 tablet doxycycline hyclate 100 mg tablet 100 mg PO BID #20 tabs 05/14/22 doxycycline hyclate 100 mg tablet 100 mg PO BID #20 tabs 05/14/22 oxycodone-acetaminophen 5 mg-325 1 tab PO Q6H PRN pain #15 tabs 07/05/22 mg tablet tramadol 50 mg tablet 50 mg PO Q8H PRN pain #10 tabs 11/13/23 ondansetron 4 mg disintegrating 4 mg PO Q6H PRN nausea and 08/11/24 tablet vomiting #10 tabs Allergies Allergy/AdvReac Type Severity Reaction Status Date / Time Sulfa (Sulfonamide Allergy Unknown RASH Verified 09/19/22 21:39 Antibiotics) trimethoprim Allergy Unknown RASH Verified 09/19/22 21:39 Review of Systems Review of Systems ROS Unobtainable: All systems reviewed & are unremarkable except as noted in HPI and below Patient History Medical History Alzheimers disease Skin cancer Easy bruisability Eczema Neuropathy Pain ANA MARIA (obstructive sleep apnea) Sinus drainage Pneumonia Afib Arthritis Vomiting Psoriasis GERD (gastroesophageal reflux disease) Gout Elevated blood-pressure reading without diagnosis of hypertension Contusion of left hand Abrasion of forehead Surgical History History of left knee replacement (~2007) History of repair of hiatal hernia (~2010) History of bladder surgery (1994) H/O inguinal hernia repair (~2007) S/P lumbar fusion Social History household members: spouse Smoking Status: Never smoker alcohol intake: never Smoking Status: Never smoker alcohol intake frequency: holidays/special occasions only Exam Narrative Exam Narrative: GEN: well nourished, well appearing elderly [place] male, alert and oriented x 3, patient appears to be in mild distress. HEENT: Patient has incision with sutures over the left forehead, she was little bit of swelling over the top of the scalp as well as some swelling just below with the brow, patient has ecchymosis across the brow and tracking down particularly the left periorbital area which is quite swollen and he was not able to open his eye on his own, he was also developing a little bit of raccoon eye on the left. Patient does not have any bony tenderness new only has some mild tenderness to palpation. Does not have any active bleeding with palpation of the area. pupils are equal round reactive to light, extraocular movements are intact, nares are clear, TMs are clear with no fluid, there is no conjunctival pallor. Throat is clear without any exudates, erythema, tonsillar enlargement or uvular deviation HEART: Regular rate and rhythm without murmur, clicks, rubs. No carotid bruits, pulses are equal in upper and lower extremities LUNGS:Lungs clear to auscultation, no wheezes, rales, crackles, chest moves symmetrically ABD:bowel sounds normal, soft, non-tender, no guarding, rebound, rigidity, no masses noted, no hepatosplenomegaly MSCL: Non-tender, no muscle atrophy, muscles strength 5/5 upper and lower extremities, full range of motion, normal gait NEURO:CN 2-12 intact, sensation normal. Initial Vital Signs Initial Vital Signs: Vital Signs Temperature 98.4 F 08/11/24 00:04 Pulse Rate 66 08/11/24 00:04 Respiratory Rate 15 08/11/24 00:04 Blood Pressure 161/86 H 08/11/24 00:04 Pulse Oximetry 96 08/11/24 00:04 Oxygen Delivery Method Room Air 08/11/24 00:04 Course Orders Ordered: Discontinued Medications Ondansetron HCl (Ondansetron 4 Mg Odt) 4 mg SL NOW ONE Stop: 08/11/24 02:43 Last Admin: 08/11/24 03:55 Dose: Not Given Documented By: Ondansetron HCl (Ondansetron 4 Mg/2 Ml Inj) 4 mg IV NOW ONE Stop: 08/11/24 02:44 Last Admin: 08/11/24 02:51 Dose: 4 mg Documented By: Vital Signs Vital signs: Vital Signs - 8 hr 08/11/24 00:04 08/11/24 01:13 08/11/24 01:30 Temperature 98.4 F Pulse Rate 66 70 Respiratory Rate 15 Blood Pressure 161/86 H 148/72 H Pulse Oximetry 96 95 Oxygen Delivery Method Room Air 08/11/24 01:30 08/11/24 02:00 08/11/24 02:00 Temperature Pulse Rate 70 70 Respiratory Rate Blood Pressure 147/71 H Pulse Oximetry 95 96 Oxygen Delivery Method Room Air 08/11/24 02:30 08/11/24 02:30 08/11/24 03:00 Temperature Pulse Rate 70 Respiratory Rate Blood Pressure 143/71 H 150/71 H Pulse Oximetry 96 Oxygen Delivery Method 08/11/24 03:00 08/11/24 03:30 08/11/24 03:30 Temperature Pulse Rate 70 70 Respiratory Rate Blood Pressure 153/76 H Pulse Oximetry 97 96 Oxygen Delivery Method Room Air MDM - Nausea/Vomiting/Diarrhea MDM Narrative Medical decision making narrative: 89-year-old male status post melanoma removal on his left forehead did stop his anticoagulants developed quite a bit of bruising which has been tracking down his face is a days gone by. He also developed some nausea and vomiting after receiving narcotics. His did give him a dose of ondansetron but she reached out to the office who called in a prescription for tramadol. He then had this and then had some additional nausea and vomiting. He was got some mild nausea now but no active vomiting. Last dose of ondansetron was at 9:00 p.m.. Discussed with the patient family does not appear to have an active bleed does have quite a bit of bruising but sounds like it has stabilized. He does not have enough bleeding that I am suspicious for significant bleed requiring labs patient and family feel comfortable holding off on labs. Patient and are comfortable with this. Discussed imaging but patient does not appear to have a rapidly expanding hematoma. We will give an additional dose of oral ondansetron here discussed using Tylenol preferentially and avoiding narcotics but if they really need it give ondansetron 20 minutes before any narcotic medication. Patient had oral challenge here in the department. Patient has been tolerating orals here in the department for about an hour. Attempted to put a little bit of compression to see if that would help keep his bruising from tracking down over his eye but patient initially was refusing but was able to get one placed. Discussed with family if he was having rapidly worsening swelling of the forehead to return, any persistent vomiting, severe headaches, new chest pain or shortness of breath or other new or concerning changes they are to return. They have follow up later today with Oncology. I would recommend he continues to hold his Eliquis for the short term to talk with Oncology about when to restart it. notes he has had issues with hematomas and postoperative bleeding in the past. Did offer for patient to stay little bit longer and to continue to be observed but they prefer return home. Discharge Plan Departure Patient Disposition: Home Clinical Impression: Facial bruising, Hx of melanoma excision Activity Restrictions/Additional Instructions: I hope you are follow up today with the oncologist goes well. I hope the rest of your day goes better. Keep the compression wrap on your head until this afternoon. Would continue to hold your Eliquis, talk with your oncologist about when to restart this. . You can take acetaminophen for pain up to a 1000 mg every 6 hours. Take Zofran 1 tablet every 6 hours as needed for nausea. Prescription for some additional Zofran was sent to [facility]. I would avoid narcotic pain medication but if you do give a dose give the Zofran 20 minutes prior to any narcotics If you are developing fevers, severe headaches, any new bleeding, rapidly worsening swelling of your head, new chest pain or shortness of breath, persistent vomiting or other new or concerning changes please return to the emergency department. Prescriptions: New ondansetron 4 mg tablet,disintegrating 4 mg PO Q6H PRN (Reason: nausea and vomiting) Qty: 10 0RF No Action allopurinol 100 MG tablet 100 mg PO DAILY Qty: 0 ascorbic acid (vitamin C) [Vitamin C] 1,000 mg Tablet 1,000 mg PO DAILY Qty: 0 cyanocobalamin (vitamin B-12) [Vitamin B-12] 2,500 mcg Tablet, Sublingual 2,500 mcg SUBLINGUAL DAILY Qty: 0 cholecalciferol (vitamin D3) [Vitamin D3] 125 mcg (5,000 unit) Tablet 125 mcg PO DAILY Qty: 0 oxycodone 5 mg tablet 5 mg PO Q8H PRN (Reason: pain) Qty: 10 0RF pantoprazole 40 mg tablet,delayed release (DR/EC) 40 mg PO DAILY Eliquis 5 mg tablet 5 mg PO DAILY atorvastatin 40 mg tablet 40 mg PO DAILY losartan 25 mg tablet 25 mg PO DAILY elderberry fruit 200 mg capsule 100 mg PO DAILY aspirin [Adult Aspirin Regimen] 81 mg tablet,delayed release (DR/EC) 81 mg PO DAILY zinc 50 mg tablet 50 mg PO DAILY doxycycline hyclate 100 mg tablet 100 mg PO BID Qty: 20 0RF doxycycline hyclate 100 mg tablet 100 mg PO BID Qty: 20 0RF tramadol [Ultram] 50 mg tablet 50 mg PO Q6H PRN (Reason: pain) Qty: 10 0RF ibuprofen 200 mg tablet 400 mg PO Q6H Qty: 60 0RF acetaminophen [Tylenol] 325 mg capsule 650 mg PO QID PRN (Reason: pain) Qty: 60 0RF tramadol 50 mg tablet 50 mg PO Q6H PRN (Reason: pain) Qty: 30 0RF acetaminophen-codeine 300-30 mg tablet 1 tab PO BID PRN (Reason: pain) Qty: 14 0RF Rx Instructions: prescription 2 of 2 oxycodone-acetaminophen 5-325 mg tablet 1 tab PO Q6H PRN (Reason: pain) Qty: 15 0RF tramadol 50 mg tablet 50 mg PO Q8H PRN (Reason: pain) Qty: 10 0RF Referrals: Martha Khanna ARNP [Primary Care Provider] - Stand Alone Forms: Patient Portal/API/Survey
[2024-08-11] MEDS: ONDANSETRON 4 MG/2 ML INJ IV (02:51)
== END 2024-08-11 04:12 | disposition home or self-care (01) ==
PROVIDERS: Emergency Provider Emergency Medicine; PCP Nurse Practitioner
DX: Z98.890 Other specified postprocedural states (principal); S00.83XA Contusion of other part of head, initial encounter
CPT/HCPCS: 96374; 99283; 99284; J2405

== ENCOUNTER 2024-09-08 01:44 | Observation (INO) | payer MEDICARE, OTHER, SELFPAY ==
[2024-09-08] VITALS (17 sets, daily range): BP systolic 120–149; BP diastolic 62–81; PULSE 70–78; RESP 14–20; TEMP 36.3–36.6; O2SAT 96–100; BMI 20.7; BMI 20.6
--- NOTE | 2024-09-08 01:52 | EKG_ITS ---
[place] [address] [address] [place] [id number] Test Date: 2024-09-08 Pat Name: Bj Simon Department: [facility] Room: Gender: Male Busser: AMANDA : 1935 Requested By: Order Number: [id number] Reading MD: Vinnie Sorensen Measurements Intervals [place] Rate: 70 P: 76 IN: QRS: 79 QRSD: 172 T: 248 QT: 464 QTc: 501 Interpretive Statements Critical Test Result: AV Block Sinus rhythm with AV dissociation and Wide QRS rhythm Left bundle branch block Electronically Signed On 09-13-2024 20:08:14 PDT by Vinnie Sorensen
--- NOTE | 2024-09-08 01:52 | DI.RAD.S_ITS ---
PROCEDURE: XR CHEST 1V INDICATIONS: Shortness of breath TECHNIQUE: One view of the chest was acquired. COMPARISON: [facility], CR, XR CHEST 2 VIEWS, 09/19/2022, 14:21. [facility], CR, XR CHEST 1V, 11/17/2018, 8:11. [facility], CR, XR CHEST 2V, 06/11/2018, 14:32. FINDINGS: Surgical changes and devices: Anterior implanted cardiac monitoring device at the midline.. Lungs and pleura: Lungs are abnormal with reduced inspiratory volume and bilateral chronic interstitial prominence. Chronic lung base scarring is again noted, with reference to prior plain films from August 2022 and from 2018. . No pleural effusions or pneumothorax. Mediastinum: Mediastinal contours appear normal. Heart size is normal. Bones and chest wall: No suspicious bony lesions. Overlying soft tissues appear unremarkable. IMPRESSION: Reduced inspiratory volume, chronic interstitial prominence. Suspect COPD and lung scarring but a definite acute change is not found. Dictated by: Jose Roberto Mora M.D. on 09/08/2024 at 9:20 Approved by: Jose Roberto Mora M.D. on 09/08/2024 at 9:22
--- NOTE | 2024-09-08 02:10 | ED_ITS ---
HPI - SOB/Dyspnea General Chief Complaint: Shortness of Breath/Dyspnea Stated Complaint: sob x2 hours Time Seen by Provider: 09/08/24 02:10 Source: patient Mode of arrival: Wheelchair History of Present Illness HPI Narrative: 89-year-old male with past medical history of hypertension, hyperlipidemia, AFib on Eliquis presents to the emergency department from home for evaluation shortness breath he states that he was seated started feeling short of breath, states it felt like he had difficulty taking a deep breath in. Patient denies any other symptoms such as headache visual disturbances chest pain fever chills nausea vomiting abdominal pain or any other GI/ symptoms time. Related Data Home Medications Medication Instructions Recorded Confirmed allopurinol 100 mg tablet 100 mg PO DAILY ##0 07/28/12 11/19/20 ascorbic acid (vitamin C) 1,000 mg 1,000 mg PO DAILY ##0 08/03/12 11/19/20 tablet (Vitamin C) cholecalciferol (vitamin D3) 125 125 mcg PO DAILY ##0 08/03/12 11/19/20 mcg (5,000 unit) tablet (Vitamin D3) cyanocobalamin (vitamin B-12) 2,500 mcg sublingual DAILY ##0 08/03/12 11/19/20 2,500 mcg sublingual tablet (Vitamin B-12) apixaban 5 mg tablet (Eliquis) 5 mg PO DAILY 10/11/20 05/12/23 aspirin 81 mg tablet,delayed 81 mg PO DAILY 10/11/20 11/19/20 release (Adult Aspirin Regimen) atorvastatin 40 mg tablet 40 mg PO DAILY 10/11/20 05/12/23 elderberry fruit 200 mg capsule 100 mg PO DAILY 10/11/20 11/19/20 losartan 25 mg tablet 25 mg PO DAILY 10/11/20 05/12/23 pantoprazole 40 mg tablet,delayed 40 mg PO DAILY 10/11/20 11/19/20 release zinc 50 mg tablet 50 mg PO DAILY 10/11/20 11/19/20 Previous Rx's Medication Instructions Recorded tramadol 50 mg tablet (Ultram) 50 mg PO Q6H PRN pain #10 tabs 09/23/20 acetaminophen 325 mg capsule 650 mg (2 x 325 mg) PO QID PRN 10/30/20 (Tylenol) pain #60 caps ibuprofen 200 mg tablet 400 mg (2 x 200 mg) PO Q6H #60 tabs 10/30/20 tramadol 50 mg tablet 50 mg PO Q6H PRN pain #30 tabs 10/30/20 oxycodone 5 mg tablet 5 mg PO Q8H PRN pain #10 tabs 11/05/20 acetaminophen 300 mg-codeine 30 mg 1 tab PO BID PRN pain #14 tabs 05/10/21 tablet doxycycline hyclate 100 mg tablet 100 mg PO BID #20 tabs 05/14/22 doxycycline hyclate 100 mg tablet 100 mg PO BID #20 tabs 05/14/22 oxycodone-acetaminophen 5 mg-325 1 tab PO Q6H PRN pain #15 tabs 07/05/22 mg tablet tramadol 50 mg tablet 50 mg PO Q8H PRN pain #10 tabs 11/13/23 ondansetron 4 mg disintegrating 4 mg PO Q6H PRN nausea and 08/11/24 tablet vomiting #10 tabs Allergies Allergy/AdvReac Type Severity Reaction Status Date / Time Sulfa (Sulfonamide Allergy Unknown RASH Verified 09/19/22 21:39 Antibiotics) trimethoprim Allergy Unknown RASH Verified 09/19/22 21:39 Review of Systems Review of Systems Narrative: General: Denies fever, chills, weight loss HEENT: Denies headache, eye drainage, eye irritation, head trauma, sore throat, voice change Cardiovascular: Denies any chest pain, palpitations, tachycardia Respiratory: Positive shortness of breath, denies cough, wheeze, stridor GI/: Denies any abdominal pain, nausea, vomiting, diarrhea, bright red blood per rectum, melanotic stools, urinary frequency, urinary retention, dysuria, hematuria MSK: Denies any joint pain, muscle pains, swelling Skin: Denies any rashes, lesions, discoloration Neuro: Denies any headache, lightheadedness, dizziness, fainting, weakness Psych: Denies SI/HI Patient History Medical History Alzheimers disease Skin cancer Easy bruisability Eczema Neuropathy Pain ANA MARIA (obstructive sleep apnea) Sinus drainage Pneumonia Afib Arthritis Vomiting Psoriasis GERD (gastroesophageal reflux disease) Gout Elevated blood-pressure reading without diagnosis of hypertension Contusion of left hand Abrasion of forehead Surgical History History of left knee replacement (~2007) History of repair of hiatal hernia (~2010) History of bladder surgery (1994) H/O inguinal hernia repair (~2007) S/P lumbar fusion Social History household members: spouse alcohol intake: never alcohol intake frequency: holidays/special occasions only Exam Narrative Exam Narrative: General: Cooperative, well-developed, not in acute distress HEENT: Patient with well-healing scar noted to his forehead consistent with history of previous laceration however no new laceration or active bleeding, PERRLA, normal sclera, eyelids normal Neck: Active full range of motion, atraumatic Chest: Normal to inspection, negative crepitus, no overlying erythema ecchymosis Respiratory: Normal respiratory effort, not in acute respiratory distress, mild rales noted to the left lung burgos negative cough, wheeze, tachypnea, rhonchi, rales Cardiology: Regular rate rhythm negative gallop, murmur, rubs GI/: No tenderness to palpation, soft, non rigid, normal to inspection, exam deferred MSK: Full active range of motion in all 4 extremities, atraumatic, no tenderness to palpation of any bony prominences Skin: No rashes or lesions noted Neuro: Alert awake oriented x3, moves all 4 extremities spontaneously, cranial nerves intact, able to answer all questions appropriately follows commands appropriately Psych: Cooperative, negative suicidal or homicidal ideations Initial Vital Signs Initial Vital Signs: Vital Signs Temperature 97.8 F 09/08/24 01:57 Pulse Rate 74 09/08/24 01:57 Respiratory Rate 20 09/08/24 01:57 Blood Pressure 146/81 H 09/08/24 01:57 Pulse Oximetry 97 09/08/24 01:57 Oxygen Delivery Method Room Air 09/08/24 01:57 Course Orders Ordered: ED Orders 09/08/24 01:52 XR chest 1V Stat EKG-12 Lead Stat RT Consult Eval and Treat NOW 09/08/24 02:30 Covid-19 + FLU A/B + RSV - PCR Stat 09/08/24 02:40 Complete Blood Count AUTO DIFF Stat Comprehensive Metabolic Panel Stat Lactate (Lactic Acid) Stat NT-proBNP (BNP-Adult 18+) Stat Prothrombin Time INR Stat Troponin I Stat Discontinued Medications Albuterol (Albuterol 2.5 Mg/3 Ml Neb (Adult)) 2.5 mg INH NOW ONE Stop: 09/08/24 02:16 Last Admin: 09/08/24 02:22 Dose: 2.5 mg Documented By: STEVEN Vital Signs Vital signs: Vital Signs - 8 hr 09/08/24 01:57 09/08/24 02:23 Temperature 97.8 F Pulse Rate 74 70 Respiratory Rate 20 18 Blood Pressure 146/81 H Pulse Oximetry 97 98 Oxygen Delivery Method Room Air Room Air Fraction of Inspired Oxygen 21 MDM - SOB/Dyspnea Differential Diagnosis Differential diagnosis: Likely congestive heart failure, community acquired pneumonia, asthma with exacerbation and other (Electrolyte abnormality, COVID, flu, pneumonia) Lab Data 09/08/24 02:40 09/08/24 02:40 Labs: Lab Results 09/08/24 09/08/24 Range/Units 02:30 02:40 WBC 6.6 (4.5-11.0) X10^3/uL RBC 3.25 L (4.5-5.9) X10^6/uL Hgb 11.1 L (13.5-17.5) g/dL Hct 33.0 L (41-53) % MCV 101.7 H (80-100) fL MCH 34.1 H (26-34) PG MCHC 33.6 (30-36) % RDW 15.4 H (11.6-14.8) % Plt Count 161 (150-400) X10^3/uL Neut % (Auto) 73.8 (50-75) % Lymph % (Auto) 16.9 L (25-40) % [place] % (Auto) 7.5 (3-14) % Eos % (Auto) 1.3 L (2-4) % Baso % (Auto) 0.5 (0-2) % Neut # (Auto) 4900 (8077-7289) /uL Lymph # (Auto) 1100 (8583-5962) /uL [place] # (Auto) 500 (0-900) /uL Eos # (Auto) 100 (0-450) /uL Baso # (Auto) 0 (0-100) /uL PT 20.8 H (9.4-12.5) SECONDS INR 1.9 H (0.9-1.3) Sodium 138 (137-145) mmol/L Potassium 4.7 (3.4-5.1) mmol/L Chloride 98 (98-107) mmol/L Carbon Dioxide 30 (22-32) mmol/L BUN 23 H (9-20) mg/dL Creatinine 1.43 H (0.66-1.25) mg/dL Estimated GFR 47 L (>60) mL/min BUN/Creatinine Ratio 16.1 (6-22) Glucose 113 H (80-110) mg/dL Lactate 1.6 (0.7-2.1) mmol/L Calcium 9.5 (8.4-10.2) mg/dL Total Bilirubin 0.7 (0.2-1.3) mg/dL AST 31 (17-59) IU/L ALT 19 (<50) IU/L Alkaline Phosphatase 132 H (38-126) U/L Troponin I 0.101 H (0.01-0.034) ng/mL NT-Pro-B Natriuret Pep 6370 H (<450) pg/mL Total Protein 7.4 (6.3-8.2) g/dL Albumin 4.3 (3.5-5.0) g/dL Globulin 3.1 (1.7-4.1) g/dL Albumin/Globulin Ratio 1.4 (1.0-2.8) SARS-CoV-2 (PCR) Negative (Negative) Influenza A (RT-PCR) Flu a negative (NEGATIVE) Influenza B (RT-PCR) Flu b negative (NEGATIVE) RSV (PCR) Negative (Negative) Imaging Data Chest x-ray: Radiologist's Impression: Preliminary read showing multifocal bilateral pulmonary infiltrates ECG Data Interpretation: EKG interpreted ED physician sinus at 70 beats per minute QTC 501 left bundle branch block noted similar to previous performed on 11/12/2023 MDM Narrative Medical decision making narrative: 89-year-old male with a history of AFib on Eliquis, hypertension hyperlipidemia presenting for shortness of breath, states it started spontaneously around 2 hours prior to arrival, states he feels like he can not take a deep breath but is nonpleuritic in nature. Has been compliant with his Eliquis. EKG nonischemic in nature. Lab work imaging performed here in the emergency department, patient did have albuterol nebulizer performed here in the emergency department with mild relief, chest x-ray is showing bilateral pulmonary infiltrates consistent with multifocal pneumonia. Patient with a curb 65 score of 2. Patient's initial troponin 0.101 repeat is pending. Patient is without any actual chest pain most likely elevated secondary to type to spill in the setting of multifocal pneumonia. Patient BNP also elevated at 6370. The patient's management plan was discussed Dr. Mendez, who agrees to admit the patient to their service and assumes care of this patient at this time. Full admission orders will be placed by the primary team. Discharge Plan Departure Patient Disposition: Admitted As Inpatient Clinical Impression: Multifocal pneumonia Prescriptions: No Action allopurinol 100 MG tablet 100 mg PO DAILY Qty: 0 ascorbic acid (vitamin C) [Vitamin C] 1,000 mg Tablet 1,000 mg PO DAILY Qty: 0 cyanocobalamin (vitamin B-12) [Vitamin B-12] 2,500 mcg Tablet, Sublingual 2,500 mcg SUBLINGUAL DAILY Qty: 0 cholecalciferol (vitamin D3) [Vitamin D3] 125 mcg (5,000 unit) Tablet 125 mcg PO DAILY Qty: 0 oxycodone 5 mg tablet 5 mg PO Q8H PRN (Reason: pain) Qty: 10 0RF pantoprazole 40 mg tablet,delayed release (DR/EC) 40 mg PO DAILY Eliquis 5 mg tablet 5 mg PO DAILY atorvastatin 40 mg tablet 40 mg PO DAILY losartan 25 mg tablet 25 mg PO DAILY elderberry fruit 200 mg capsule 100 mg PO DAILY aspirin [Adult Aspirin Regimen] 81 mg tablet,delayed release (DR/EC) 81 mg PO DAILY zinc 50 mg tablet 50 mg PO DAILY doxycycline hyclate 100 mg tablet 100 mg PO BID Qty: 20 0RF doxycycline hyclate 100 mg tablet 100 mg PO BID Qty: 20 0RF tramadol [Ultram] 50 mg tablet 50 mg PO Q6H PRN (Reason: pain) Qty: 10 0RF ibuprofen 200 mg tablet 400 mg PO Q6H Qty: 60 0RF acetaminophen [Tylenol] 325 mg capsule 650 mg PO QID PRN (Reason: pain) Qty: 60 0RF tramadol 50 mg tablet 50 mg PO Q6H PRN (Reason: pain) Qty: 30 0RF acetaminophen-codeine 300-30 mg tablet 1 tab PO BID PRN (Reason: pain) Qty: 14 0RF Rx Instructions: prescription 2 of 2 oxycodone-acetaminophen 5-325 mg tablet 1 tab PO Q6H PRN (Reason: pain) Qty: 15 0RF tramadol 50 mg tablet 50 mg PO Q8H PRN (Reason: pain) Qty: 10 0RF ondansetron 4 mg tablet,disintegrating 4 mg PO Q6H PRN (Reason: nausea and vomiting) Qty: 10 0RF Referrals: Martha Khanna ARNP [Primary Care Provider] -
[2024-09-08] MEDS: ALBUTEROL 2.5 MG/3 ML NEB (ADULT) INH (02:22)
[2024-09-08 02:49] LABS: Add Manual Diff / Slide Review NO; Basophils Absolute Auto 0 /uL (0-100); Basophils Percent Auto 0.5 % (0-2); Eosinophils Absolute Auto 100 /uL (0-450); Eosinophils Percent Auto 1.3 % (2-4); Hemoglobin 11.1 g/dL (13.5-17.5); Lymphocytes Absolute Auto 1100 /uL (1100-4500); Lymphocytes Percent Auto 16.9 % (25-40); Mean Corpuscular HGB Conc 33.6 % (30-36); Mean Corpuscular Hemoglobin 34.1 PG (26-34); Mean Corpuscular Volume 101.7 fL (80-100); Monocytes Absolute Auto 500 /uL (0-900); Monocytes Percent Auto 7.5 % (3-14); Neutrophils Absolute Auto 4900 /uL (1500-7000); Neutrophils Percent Auto 73.8 % (50-75); Platelet Count 161 X10^3/uL (150-400); Red Blood Cell Count 3.25 X10^6/uL (4.5-5.9); Red Cell Distribution Width 15.4 % (11.6-14.8); White Blood Cell Count 6.6 X10^3/uL (4.5-11.0)
[2024-09-08 02:58] LABS: Lactate (Lactic Acid) 1.6 mmol/L (0.7-2.1)
[2024-09-08 02:59] LABS: Alanine Aminotransferase 19 IU/L (<50); Albumin 4.3 g/dL (3.5-5.0); Albumin Globulin Ratio 1.4 (1.0-2.8); Alkaline Phosphatase 132 U/L (38-126); Aspartate Aminotransferase 31 IU/L (17-59); BUN Creatinine Ratio 16.1 (6-22); Bilirubin Total 0.7 mg/dL (0.2-1.3); Blood Urea Nitrogen 23 mg/dL (9-20); Calcium 9.5 mg/dL (8.4-10.2); Carbon Dioxide 30 mmol/L (22-32); Chloride 98 mmol/L (98-107); Estimated Glomerular Filt Rate 47 mL/min (>60); Globulin 3.1 g/dL (1.7-4.1); Glucose 113 mg/dL (80-110); HEMOLYSIS 20 (0-50); Potassium 4.7 mmol/L (3.4-5.1); Sodium 138 mmol/L (137-145); Total Protein 7.4 g/dL (6.3-8.2)
[2024-09-08 03:05] LABS: INR 1.9 (0.9-1.3); Prothrombin Time 20.8 SECONDS (9.4-12.5)
[2024-09-08 03:11] LABS: NT-proBNP (BNP-Adult 18+) 6370 pg/mL (<450); Troponin I 0.101 ng/mL (0.01-0.034)
[2024-09-08 03:17] LABS: Influenza A - CEPHEID Flu A NEGATIVE (NEGATIVE); Influenza B - CEPHEID Flu B NEGATIVE (NEGATIVE); Respiratory Syncytial Virus Negative (Negative)
[2024-09-08 03:30] LABS: COVID-19 CEPHEID 4-PLEX PCR Negative (Negative)
[2024-09-08] MEDS: cefTRIAXone 2,000 MG in SODIUM CHLORIDE 0.9% 100 ML 200 MG IV (03:56)
--- NOTE | 2024-09-08 03:56 | P.HP_ITS ---
History of Present Illness History of Present Illness Chief complaint: sob x2 hours Narrative: An 89M with PMH of chronic afib on Eliquis, HTN, hyperlipidemia, Alzheimer's disease, non-diabetic peripheral neuropathy, ANA MARIA not on CPAP, psoriasis, GERD presents with <1 day of dyspnea and air hunger. He had no other symptoms. In ED, CXR showed bilateral pneumonia. He did not require supplemental oxygen but because of patient's concern of managing this outpatient whilst living at home. Normally gets around with walker. He was given Rocephin + doxycycline and admitted. Troponin was minimally elevated and BNP was 6370 likely due to pneumonia. [facility] Medical History Alzheimers disease Skin cancer Easy bruisability Eczema Neuropathy Pain ANA MARIA (obstructive sleep apnea) Sinus drainage Pneumonia Afib Arthritis Vomiting Psoriasis GERD (gastroesophageal reflux disease) Gout Elevated blood-pressure reading without diagnosis of hypertension Contusion of left hand Abrasion of forehead Surgical History History of left knee replacement (~2007) History of repair of hiatal hernia (~2010) History of bladder surgery (1994) H/O inguinal hernia repair (~2007) S/P lumbar fusion Social History household members: spouse alcohol intake: never Meds Home Medications and Allergies Home Medications Medication Instructions Recorded Confirmed Type allopurinol 100 mg tablet 100 mg PO DAILY ##0 07/28/12 11/19/20 History ascorbic acid (vitamin C) 1,000 mg 1,000 mg PO DAILY ##0 08/03/12 11/19/20 History tablet (Vitamin C) cholecalciferol (vitamin D3) 125 125 mcg PO DAILY ##0 08/03/12 11/19/20 History mcg (5,000 unit) tablet (Vitamin D3) cyanocobalamin (vitamin B-12) 2,500 mcg sublingual DAILY ##0 08/03/12 11/19/20 History 2,500 mcg sublingual tablet (Vitamin B-12) tramadol 50 mg tablet (Ultram) 50 mg PO Q6H PRN pain #10 tabs 09/23/20 11/19/20 Rx apixaban 5 mg tablet (Eliquis) 5 mg PO BID 10/11/20 09/08/24 History aspirin 81 mg tablet,delayed 81 mg PO DAILY 10/11/20 11/19/20 History release (Adult Aspirin Regimen) atorvastatin 40 mg tablet 40 mg PO DAILY 10/11/20 05/12/23 History elderberry fruit 200 mg capsule 100 mg PO DAILY 10/11/20 11/19/20 History losartan 25 mg tablet 25 mg PO DAILY 10/11/20 05/12/23 History pantoprazole 40 mg tablet,delayed 40 mg PO DAILY 10/11/20 11/19/20 History release zinc 50 mg tablet 50 mg PO DAILY 10/11/20 11/19/20 History acetaminophen 325 mg capsule 650 mg (2 x 325 mg) PO QID PRN 10/30/20 11/19/20 Rx (Tylenol) pain #60 caps ibuprofen 200 mg tablet 400 mg (2 x 200 mg) PO Q6H #60 tabs 10/30/20 11/19/20 Rx tramadol 50 mg tablet 50 mg PO Q6H PRN pain #30 tabs 10/30/20 11/19/20 Rx oxycodone 5 mg tablet 5 mg PO Q8H PRN pain #10 tabs 11/05/20 11/19/20 Rx acetaminophen 300 mg-codeine 30 mg 1 tab PO BID PRN pain #14 tabs 05/10/21 Rx tablet doxycycline hyclate 100 mg tablet 100 mg PO BID #20 tabs 05/14/22 Rx doxycycline hyclate 100 mg tablet 100 mg PO BID #20 tabs 05/14/22 Rx oxycodone-acetaminophen 5 mg-325 1 tab PO Q6H PRN pain #15 tabs 07/05/22 Rx mg tablet tramadol 50 mg tablet 50 mg PO Q8H PRN pain #10 tabs 11/13/23 Rx ondansetron 4 mg disintegrating 4 mg PO Q6H PRN nausea and 08/11/24 Rx tablet vomiting #10 tabs Allergies Allergy/AdvReac Type Severity Reaction Status Date / Time Sulfa (Sulfonamide Allergy Unknown RASH Verified 09/19/22 21:39 Antibiotics) trimethoprim Allergy Unknown RASH Verified 09/19/22 21:39 Review of Systems Review of Systems Narrative: as per HPI. Rest of 10-system review negative. Exam Vital Signs (past 8 hours): - 09/08/24 01:57 09/08/24 02:23 Temperature 97.8 F Pulse Rate 74 70 Respiratory Rate 20 18 Blood Pressure 146/81 H Pulse Oximetry 97 98 Oxygen Delivery Method Room Air Room Air Fraction of Inspired Oxygen 21 Fraction of Inspired Oxygen 21 SaO2/FiO2 Ratio 466 Oxygen Delivery Method Room Air Narrative Exam Narrative: Telemedicine evaluation with camera and digital stethoscope with help of bedside RN. Const Other: AA, NAD. HENMT Other: old large scar on crown of head L>R. patent nares. Eyes Other: aniceteric, good eye contact Neck Other: supple Resp Other: diminished breath sounds throughout, no w/r Cardio Other: RRR GI Other: S/NT/ND/+BS Skin Other: multiple old keratoses Neuro Other: normal speech Extrem Other: no edema Psych Other: normal mood, appropriate affect Objective Imaging Chest x-ray: My impression: bilateral pneumonia Radiologist's impression: pending Labs 09/08/24 02:40 09/08/24 02:40 Labs: Laboratory Results - last 24 hr 09/08/24 09/08/24 02:30 02:40 WBC 6.6 RBC 3.25 L Hgb 11.1 L Hct 33.0 L MCV 101.7 H MCH 34.1 H MCHC 33.6 RDW 15.4 H Plt Count 161 Neut % (Auto) 73.8 Lymph % (Auto) 16.9 L [place] % (Auto) 7.5 Eos % (Auto) 1.3 L Baso % (Auto) 0.5 Neut # (Auto) 4900 Lymph # (Auto) 1100 [place] # (Auto) 500 Eos # (Auto) 100 Baso # (Auto) 0 PT 20.8 H INR 1.9 H Sodium 138 Potassium 4.7 Chloride 98 Carbon Dioxide 30 BUN 23 H Creatinine 1.43 H Estimated GFR 47 L BUN/Creatinine Ratio 16.1 Glucose 113 H Lactate 1.6 Calcium 9.5 Total Bilirubin 0.7 AST 31 ALT 19 Alkaline Phosphatase 132 H Troponin I 0.101 H NT-Pro-B Natriuret Pep 6370 H Total Protein 7.4 Albumin 4.3 Globulin 3.1 Albumin/Globulin Ratio 1.4 SARS-CoV-2 (PCR) Negative Influenza A (RT-PCR) Flu a negative Influenza B (RT-PCR) Flu b negative RSV (PCR) Negative Assessment & Plan Assessment and plan (1) Multifocal pneumonia: Status: Acute Assessment & Plan narrative: 1. Acute bilateral multifocal community-acquired non-COVID/RSV/flu pneumonia w/ h/o asthma, without acute hypoxic respiratory failure, without sepsis, POA 2. Type 2 NSTEMI, related to #1, POA 3. Atrial fibrillation on DOAC anti-coagulation 4. HTN, hyperlipidemia 5. Alzheimer's, mild 6. Psoriasis 7. Peripheral neuropathy 8. GERD Plan: 1. Admit to observation, floor, telemetry 2. Keep SaO2 >91% 3. Rocephin, doxycycline 4. continue Eliquis, ARB, PPI. Hold other home meds 5. Cardiac diet 6. Discharge planning. Code: full DVT prophylaxis: Eliquis Dispo: home likely Time-Based Coding :: [TOTAL MINUTES] spent with patient and on the chart (including review of chart, obtaining history, exam, reviewing outside data, placing orders, documenting exam and treatment plan, and counseling patient) on [DATE].
[2024-09-08] MEDS: DOXYCYCLINE 100 MG in SODIUM CHLORIDE 0.9% 100 ML IV ×2 (04:10→15:36)
[2024-09-08] MEDS: ACETAMINOPHEN 325 MG TABLET 650 MG PO ×2 (06:14→22:48)
[2024-09-08] MEDS: APIXABAN 5 MG TABLET PO ×2 (08:16→21:32)
[2024-09-08] MEDS: LOSARTAN 25 MG TABLET PO (08:16)
[2024-09-08] MEDS: PANTOPRAZOLE DR 40 MG TABLET PO (08:16)
--- NOTE | 2024-09-08 14:31 | PC.NURSE ---
Pt c/o dyspnea. Sat 97% RA. Base of lungs diminished, but no crackles or wheezing. Pt denies chest pain. Pt educated on using the incentive spirometer; he understands how often to use it. Called [facility] and updated them on pt's s/s. Notified Dr. Cates as well about pt's s/s.
--- NOTE | 2024-09-08 17:35 | PM.PN.1 ---
Subjective Subjective Date Patient Seen: 09/08/24 Time Patient Seen: 17:35 Interval history: Chief complaint: Shortness of breath secondary to bronchitis History of present illness: An 89M with PMH of chronic afib on Eliquis, HTN, hyperlipidemia, Alzheimer's disease, non-diabetic peripheral neuropathy, ANA MARIA not on CPAP, psoriasis, GERD presents with <1 day of dyspnea and air hunger. He had no other symptoms. In ED, CXR showed bilateral pneumonia. He did not require supplemental oxygen but because of patient's concern of managing this outpatient whilst living at home. Normally gets around with walker. He was given Rocephin + doxycycline and admitted. Troponin was minimally elevated and BNP was 6370 likely due to pneumonia. Hospital course: 09/08: Patient is having episodes of dyspnea shortness for breath today Review of systems: No fever or chills Heart sounds distant no murmurs Lungs diminished breath sounds with diffuse wheezes Abdomen nondistended Extremities no edema Assessment and plan: 1. Acute bilateral multifocal community-acquired non-COVID/RSV/flu pneumonia w/ h/o asthma, without acute hypoxic respiratory failure, without sepsis, POA 2. Type 2 NSTEMI, related to #1, POA 3. Atrial fibrillation on DOAC anti-coagulation 4. HTN, hyperlipidemia 5. Alzheimer's, mild 6. Psoriasis 7. Peripheral neuropathy 8. GERD Plan: 1. Admit to observation, floor, telemetry 2. Keep SaO2 >91% 3. Rocephin, doxycycline 4. continue Eliquis, ARB, PPI. Hold other home meds 5. Cardiac diet 6. Discharge planning. Code: full DVT prophylaxis: Eliquis Dispo: home likely 24-48 hours Time-Based Coding 35 minutes were spent with patient and on the chart (including review of chart, obtaining history, exam, reviewing outside data, placing orders, documenting exam and treatment plan, and counseling patient) Exam Vital Signs (past 8 hours): - 09/08/24 12:00 09/08/24 15:00 Temperature 97.3 F L Pulse Rate 70 78 Respiratory Rate 18 14 Blood Pressure 120/73 Pulse Oximetry 97 97 Oxygen Delivery Method Room Air Oxygen Flow Rate 0 Fraction of Inspired Oxygen 21 SaO2/FiO2 Ratio 466 Oxygen Delivery Method Room Air Oxygen Flow Rate 0 Objective Labs 09/08/24 02:40 09/08/24 02:40 Labs: Laboratory Results - last 24 hr 09/08/24 09/08/24 02:30 02:40 WBC 6.6 RBC 3.25 L Hgb 11.1 L Hct 33.0 L MCV 101.7 H MCH 34.1 H MCHC 33.6 RDW 15.4 H Plt Count 161 Neut % (Auto) 73.8 Lymph % (Auto) 16.9 L [place] % (Auto) 7.5 Eos % (Auto) 1.3 L Baso % (Auto) 0.5 Neut # (Auto) 4900 Lymph # (Auto) 1100 [place] # (Auto) 500 Eos # (Auto) 100 Baso # (Auto) 0 PT 20.8 H INR 1.9 H Sodium 138 Potassium 4.7 Chloride 98 Carbon Dioxide 30 BUN 23 H Creatinine 1.43 H Estimated GFR 47 L BUN/Creatinine Ratio 16.1 Glucose 113 H Lactate 1.6 Calcium 9.5 Total Bilirubin 0.7 AST 31 ALT 19 Alkaline Phosphatase 132 H Troponin I 0.101 H NT-Pro-B Natriuret Pep 6370 H Total Protein 7.4 Albumin 4.3 Globulin 3.1 Albumin/Globulin Ratio 1.4 SARS-CoV-2 (PCR) Negative Influenza A (RT-PCR) Flu a negative Influenza B (RT-PCR) Flu b negative RSV (PCR) Negative [facility] Medical History Alzheimers disease Skin cancer Easy bruisability Eczema Neuropathy Pain ANA MARIA (obstructive sleep apnea) Sinus drainage Pneumonia Afib Arthritis Vomiting Psoriasis GERD (gastroesophageal reflux disease) Gout Elevated blood-pressure reading without diagnosis of hypertension Contusion of left hand Abrasion of forehead Surgical History History of left knee replacement (~2007) History of repair of hiatal hernia (~2010) History of bladder surgery (1994) H/O inguinal hernia repair (~2007) S/P lumbar fusion Social History household members: spouse Smoking Status: Former smoker alcohol intake: never Assessment & Plan Time-Based Coding :: [TOTAL MINUTES] spent with patient and on the chart (including review of chart, obtaining history, exam, reviewing outside data, placing orders, documenting exam and treatment plan, and counseling patient) on [DATE].
[2024-09-08] MEDS: cefTRIAXone 1,000 MG in SODIUM CHLORIDE 0.9% 100 ML 200 MG IV (21:32)
[2024-09-08] MEDS: MELATONIN 3 MG TABLET 9 MG PO (22:49)
[2024-09-09] VITALS: BP 129/77; PULSE 69; RESP 18; TEMP 36.4; O2SAT 97
[2024-09-09] MEDS: OXYCODONE IR 5 MG TABLET PO (03:07)
[2024-09-09] MEDS: DOXYCYCLINE 100 MG in SODIUM CHLORIDE 0.9% 100 ML IV (03:07)
[2024-09-09 04:00] VITALS: BP 143/84; PULSE 70; RESP 18; TEMP 36.3; O2SAT 97
[2024-09-09 06:45] LABS: Add Manual Diff / Slide Review NO; Basophils Absolute Auto 0 /uL (0-100); Basophils Percent Auto 0.2 % (0-2); Eosinophils Absolute Auto 100 /uL (0-450); Eosinophils Percent Auto 1.5 % (2-4); Hematocrit 33.5 % (41-53); Hemoglobin 11.2 g/dL (13.5-17.5); Lymphocytes Absolute Auto 800 /uL (1100-4500); Lymphocytes Percent Auto 13.1 % (25-40); Mean Corpuscular HGB Conc 33.4 % (30-36); Mean Corpuscular Hemoglobin 34.4 PG (26-34); Mean Corpuscular Volume 102.7 fL (80-100); Monocytes Absolute Auto 400 /uL (0-900); Monocytes Percent Auto 6.4 % (3-14); Neutrophils Absolute Auto 4900 /uL (1500-7000); Neutrophils Percent Auto 78.8 % (50-75); Platelet Count 159 X10^3/uL (150-400); Red Blood Cell Count 3.27 X10^6/uL (4.5-5.9); Red Cell Distribution Width 15.2 % (11.6-14.8); White Blood Cell Count 6.2 X10^3/uL (4.5-11.0)
[2024-09-09 07:04] VITALS: PULSE 74; RESP 20; O2SAT 99
[2024-09-09 07:04] LABS: BUN Creatinine Ratio 16.8 (6-22); Blood Urea Nitrogen 22 mg/dL (9-20); Calcium 9.4 mg/dL (8.4-10.2); Carbon Dioxide 31 mmol/L (22-32); Chloride 101 mmol/L (98-107); Estimated Glomerular Filt Rate 53 mL/min (>60); Glucose 89 mg/dL (80-110); HEMOLYSIS < 15 (0-50); Magnesium 1.5 mg/dL (1.6-2.3); Potassium 4.3 mmol/L (3.4-5.1); Sodium 137 mmol/L (137-145)
[2024-09-09] MEDS: ALBUTEROL/IPRATROPIUM 3 ML AMPUL INH (07:04)
--- NOTE | 2024-09-09 07:28 | PM.DS.1 ---
History of Present Illness History of Present Illness Date Patient Seen: 09/09/24 Chief complaint: sob x2 hours Narrative: [address] [address] Progress Note Patient: Bj Simon MR#: [id number] : 1935 Acct:[id number] Age/Sex: 89 / M Admit Date: 09/08/24 Provider: Jose Roberto Cates MD Subjective Subjective Date Patient Seen: 09/08/24 Time Patient Seen: 17:35 Interval history: Chief complaint: Shortness of breath secondary to bronchitis History of present illness: An 89M with PMH of chronic afib on Eliquis, HTN, hyperlipidemia, Alzheimer's disease, non-diabetic peripheral neuropathy, ANA MARIA not on CPAP, psoriasis, GERD presents with <1 day of dyspnea and air hunger. He had no other symptoms. In ED, CXR showed bilateral pneumonia. He did not require supplemental oxygen but because of patient's concern of managing this outpatient whilst living at home. Normally gets around with walker. He was given Rocephin + doxycycline and admitted. Troponin was minimally elevated and BNP was 6370 likely due to pneumonia. Hospital course: 09/08: Patient is having episodes of dyspnea shortness for breath today Review of systems: No fever or chills Heart sounds distant no murmurs Lungs diminished breath sounds with diffuse wheezes Abdomen nondistended Extremities no edema Assessment and plan: 1. Acute bronchitis without acute hypoxic respiratory failure, without sepsis, POA 2. Type 2 NSTEMI, related to #1, POA 3. Atrial fibrillation on DOAC anti-coagulation 4. HTN, hyperlipidemia 5. Alzheimer's, mild 6. Psoriasis 7. Peripheral neuropathy 8. GERD Disposition: 1. Discharged home oral cefdinir Time-Based Coding 35 minutes were spent with patient and on the chart (including review of chart, obtaining history, exam, reviewing outside data, placing orders, documenting exam and treatment plan, and counseling patient) Discharge Providers Provider Date of admission: 09/08/24 03:46 Discharge Date: 09/09/24 Primary care physician: OLIVIER Craig Discharge provider: Jose Roberto Cates MD Exam Vital Signs (past 8 hours): - 09/09/24 00:00 09/09/24 04:00 09/09/24 07:04 Temperature 97.6 F 97.3 F L Pulse Rate 69 70 74 Respiratory Rate 18 18 20 Blood Pressure 129/77 143/84 H Pulse Oximetry 97 97 99 Oxygen Delivery Method Room Air Oxygen Flow Rate 0 0 Fraction of Inspired Oxygen 21 SaO2/FiO2 Ratio 466 Oxygen Delivery Method Room Air Oxygen Flow Rate 0 Objective Labs 09/09/24 06:15 09/09/24 06:15 Labs: Laboratory Results - last 24 hr 09/09/24 06:15 WBC 6.2 RBC 3.27 L Hgb 11.2 L Hct 33.5 L MCV 102.7 H MCH 34.4 H MCHC 33.4 RDW 15.2 H Plt Count 159 Neut % (Auto) 78.8 H Lymph % (Auto) 13.1 L [place] % (Auto) 6.4 Eos % (Auto) 1.5 L Baso % (Auto) 0.2 Neut # (Auto) 4900 Lymph # (Auto) 800 L [place] # (Auto) 400 Eos # (Auto) 100 Baso # (Auto) 0 Sodium 137 Potassium 4.3 Chloride 101 Carbon Dioxide 31 BUN 22 H Creatinine 1.31 H Estimated GFR 53 L BUN/Creatinine Ratio 16.8 Glucose 89 Calcium 9.4 Magnesium 1.5 L PFSH Medical History Alzheimers disease Skin cancer Easy bruisability Eczema Neuropathy Pain ANA MARIA (obstructive sleep apnea) Sinus drainage Pneumonia Afib Arthritis Vomiting Psoriasis GERD (gastroesophageal reflux disease) Gout Elevated blood-pressure reading without diagnosis of hypertension Contusion of left hand Abrasion of forehead Surgical History History of left knee replacement (~2007) History of repair of hiatal hernia (~2010) History of bladder surgery (1994) H/O inguinal hernia repair (~2007) S/P lumbar fusion Social History household members: spouse Smoking Status: Former smoker alcohol intake: never Discharge Plan Discharge Plan Patient Disposition: Home Discharge orders & Medications Prescriptions: New cefdinir 300 mg capsule 300 mg PO BID 5 Days Qty: 10 0RF Continued allopurinol 100 MG tablet 100 mg PO DAILY Qty: 0 ascorbic acid (vitamin C) [Vitamin C] 1,000 mg Tablet 1,000 mg PO DAILY Qty: 0 cyanocobalamin (vitamin B-12) [Vitamin B-12] 2,500 mcg Tablet, Sublingual 2,500 mcg SUBLINGUAL DAILY Qty: 0 cholecalciferol (vitamin D3) [Vitamin D3] 125 mcg (5,000 unit) Tablet 125 mcg PO DAILY Qty: 0 pantoprazole 40 mg tablet,delayed release (DR/EC) 40 mg PO DAILY Eliquis 5 mg tablet 5 mg PO BID atorvastatin 40 mg tablet 40 mg PO BEDTIME elderberry fruit 200 mg capsule 100 mg PO DAILY acetaminophen [Tylenol] 325 mg capsule 650 mg PO QID PRN (Reason: pain) Qty: 60 0RF acetaminophen-codeine 300-30 mg tablet 1 tab PO BID PRN (Reason: pain) Qty: 14 0RF Rx Instructions: prescription 2 of 2 ondansetron 4 mg tablet,disintegrating 4 mg PO Q6H PRN (Reason: nausea and vomiting) Qty: 10 0RF Follow up/Referrals: Martha Khanna ARNP [Primary Care Provider] - Visit Report/Discharge Packet Instructions: How to Use an Incentive Spirometer, DI for Pneumonia -- Adult, How to Prevent Falls Stand Alone Forms: Patient Portal/API, Stroke Signs & Symptoms Discharge Data Primary Care Provider: Martha Khanna Attending Provider: Jose Roberto Cates [place] Date/Time: 09/08/24 03:46
[2024-09-09 07:40] VITALS: O2SAT 100
[2024-09-09 08:05] VITALS: BP 120/72; PULSE 72; RESP 16; TEMP 36.4; O2SAT 100
[2024-09-09] MEDS: MAGNESIUM CHLORIDE 64 MG TABLET 128 MG PO (10:02)
[2024-09-09] MEDS: LOSARTAN 25 MG TABLET PO (10:21)
[2024-09-09] MEDS: APIXABAN 5 MG TABLET PO (10:21)
[2024-09-09] MEDS: PANTOPRAZOLE DR 40 MG TABLET PO (10:21)
--- NOTE | 2024-09-09 11:37 | PC.NURSE ---
Addendum entered by Raysa Virgen R.N. 09/09/24 12:08: Pt and spouse report zofran has been effective. He ate a little fruit on his lunch tray. Feels ready to go home. Pt d/c home via auto w/spouse. Original Note: Discharge: Pt feels ready to d/c to home. Still has some course crackles and coughs up yellow sputum. uses his IS to 1000, he understands he needs to use it at home. Pt had an episode of spitting up some mucous and nausea. Pt and spouse reports he has had this off and on since he has had cancer dx. Spouse usually has zofran with her but not today. MD Hale called and got a dose of zofran for pt sl. He took medication. Pt is waiting. Have already reviewed d/c instructions and questions answered. Having pt wait for 15 minutes.
[2024-09-09] MEDS: ONDANSETRON 4 MG ODT SL (11:46)
--- NOTE | 2024-09-09 13:51 | CM.DANOTE ---
Initial DCP Assessment Visit Note Reviewed EMR and team rounds for status updates. Met with pt at bedside to introduce self and role, pt was found to be alert/oriented, able to discuss his plan for home discharge. He lives modified independently with this in their own home in [place]. He shared that they have a supportive daughter, and very involved/supportive evangelical community. He was medically cleared for home d/c today, and his transported him home. He declined any CM assistance/resource needs at this time. Payor: Medicare PCP: Martha Khanna Pt is a 89 year-old M who presented to the ED with acute onset shortness of breath/weakness. He received an albuterol tx in the ED upon arrival, however did not require supplemental O2. Chest x-ray showed bilateral multifocal pneumonia. He was started on IV ABO's and admitted to the floor for further tx and monitoring. Today he expressed feeling much improved, and was stable to return home. Discharge Planning/Care Management Advanced directive, confirm from FAMILY Start: 09/08/24 05:36 Freq: Q24H Status: Complete Protocol: Document 09/08/24 05:36 SH (Rec: 09/08/24 06:54 [id number]) Advance Directive, confirm on record Time 05:30 Person contacted spouse Copy received No Document 09/09/24 05:33 SH (Rec: 09/09/24 05:34 [id number]) Advance Directive, confirm on record Time 05:30 Person contacted spouse Copy received No Person contacted scanned in chart CM Discharge Assessment Start: 09/09/24 11:48 Freq: Status: Discharge Protocol: Document 09/09/24 11:48 DPL (Rec: 09/09/24 11:50 DPL [id number]) Discharge Planning Assessment Assigned Mold Hoister MAGO Zhang Advance Directives? Yes Advance Directives on File Yes History Provided By Patient,Medical Record Has Patient been admitted in last 30 No days? Prior Living Arrangements House Household Members spouse Type of transporation used prior to Relies on Others admit Independent with ADL's No: modified indep with a walker Is patient alert and oriented? Yes: mild Alzheimer's Needs Assistance With Home Chores / Shopping Caregiver for Another No DME Already Rented / Owned Bath Bench,Elevated Toilet Seat,FWW / Walker Comment No identified home d/c needs at this time. Barriers to Discharge No Discharge Plan Home Referrals Initiated None needed Whiteboard Updated in Patient Room with Yes name and ext. # of Mold Hoister Review Status In Process Please Provide Date Initial DC 09/09/24 Assessment Was Performed
--- NOTE | 2024-09-16 04:44 | PC.NURSE ---
Late entry for 09/08/24:Ceftriaxone started at 21:32 and completed at 22:05.
--- NOTE | 2024-09-22 03:00 | PC.NURSE ---
Late entry for 09/08/24- Doxycycline started in ED at 04:10, pt admitted to AC and medication completed in Acute care at 05:10.
== END 2024-09-09 12:13 | disposition home or self-care (01) ==
LOC: ED 03:46 → AC 04:03
PROVIDERS: Admitting Provider Internal Medicine; Emergency Provider Student in an Organized Health Care Education/Training Program; PCP Nurse Practitioner; Referring Provider Student in an Organized Health Care Education/Training Program; Visit Provider Internal Medicine
DX: J20.9 Acute bronchitis, unspecified (principal); J18.9 Pneumonia, unspecified organism; I10 Essential (primary) hypertension; E78.5 Hyperlipidemia, unspecified; I48.20 Chronic atrial fibrillation, unspecified; G30.9 Alzheimer's disease, unspecified; F02.80 Dementia in other diseases classified elsewhere, unspecified severity, without behavioral disturbance, psychotic disturbance, mood disturbance, and anxiety; G62.9 Polyneuropathy, unspecified; G47.33 Obstructive sleep apnea (adult) (pediatric); L40.9 Psoriasis, unspecified; K21.9 Gastro-esophageal reflux disease without esophagitis; I21.A1 Myocardial infarction type 2; Z11.52 Encounter for screening for COVID-19; Z87.891 Personal history of nicotine dependence; Z79.01 Long term (current) use of anticoagulants
CPT/HCPCS: 0241U; 36415; 71045; 80048; 80053; 83605; 83735; 83880; 84484; 85025; 85610; 93005; 94640; 94667; 94760; 96365; 96366; 96367; 99284; G0378; J0696; J7613

== ENCOUNTER 2024-09-26 14:43 | Emergency (ER) | payer MEDICARE, OTHER, SELFPAY ==
[2024-09-08 03:55] VITALS: BMI 20.6
[2024-09-26] VITALS (10 sets, daily range): BP systolic 117–144; BP diastolic 61–79; PULSE 68–87; RESP 18–30; TEMP 36.6; O2SAT 95–98; BMI 19.9
--- NOTE | 2024-09-26 14:54 | DI.RAD.S_ITS ---
PROCEDURE: XR CHEST 1V INDICATIONS: Shortness of breath TECHNIQUE: One view of the chest was acquired. COMPARISON: Located Within [facility], , XR CHEST 1V, 09/08/2024, 1:50. FINDINGS: Surgical changes and devices: Lead less pacer is noted. Lungs and pleura: Mild pulmonary vascular congestion. No definite focal infiltrate. Blunting of right costophrenic angle is seen suggestive of trace right pleural effusion. Mediastinum: Tortuous thoracic aorta is seen. Heart size is enlarged. Bones and chest wall: No suspicious bony lesions. Overlying soft tissues appear unremarkable. IMPRESSION: Finding is suggestive of mild CHF and small right pleural effusion. No definite focal infiltrate. No pneumothorax. Dictated by: Chava Hubbard M.D. on 09/26/2024 at 15:56 Approved by: Chava Hubbard M.D. on 09/26/2024 at 15:57
--- NOTE | 2024-09-26 15:10 | EKG_ITS ---
[address] [address] Test Date: 2024-09-26 Pat Name: Bj Simon Department: Room: Gender: Male Financial Coordinator: EBENEZER : 1935 Requested By: Order Number: [id number] Reading MD: Vinnie Sorensen Measurements Intervals [place] Rate: 70 P: [place]: QRS: 58 QRSD: 192 T: 208 QT: 492 QTc: 531 Interpretive Statements Ventricular-paced rhythm Electronically Signed On 09-28-2024 17:39:08 PDT by Vinnie Sorensen
[2024-09-26 15:34] LABS: Add Manual Diff / Slide Review NO; Basophils Absolute Auto 0 /uL (0-100); Basophils Percent Auto 0.1 % (0-2); Eosinophils Absolute Auto 0 /uL (0-450); Eosinophils Percent Auto 0.4 % (2-4); Hematocrit 37.4 % (41-53); Hemoglobin 12.4 g/dL (13.5-17.5); Lymphocytes Absolute Auto 700 /uL (1100-4500); Lymphocytes Percent Auto 7.7 % (25-40); Mean Corpuscular HGB Conc 33.2 % (30-36); Mean Corpuscular Hemoglobin 33.6 PG (26-34); Mean Corpuscular Volume 101.3 fL (80-100); Monocytes Absolute Auto 500 /uL (0-900); Monocytes Percent Auto 5.4 % (3-14); Neutrophils Absolute Auto 7400 /uL (1500-7000); Neutrophils Percent Auto 86.4 % (50-75); Platelet Count 192 X10^3/uL (150-400); Red Blood Cell Count 3.69 X10^6/uL (4.5-5.9); Red Cell Distribution Width 14.8 % (11.6-14.8); White Blood Cell Count 8.6 X10^3/uL (4.5-11.0)
[2024-09-26 15:35] LABS: INR 2.3 (0.9-1.3); Prothrombin Time 25.1 SECONDS (9.4-12.5)
[2024-09-26 15:39] LABS: Alanine Aminotransferase 18 IU/L (<50); Albumin 4.3 g/dL (3.5-5.0); Albumin Globulin Ratio 1.5 (1.0-2.8); Alkaline Phosphatase 136 U/L (38-126); Aspartate Aminotransferase 28 IU/L (17-59); BUN Creatinine Ratio 15.2 (6-22); Blood Urea Nitrogen 23 mg/dL (9-20); Calcium 9.4 mg/dL (8.4-10.2); Carbon Dioxide 27 mmol/L (22-32); Chloride 102 mmol/L (98-107); Estimated Glomerular Filt Rate 44 mL/min (>60); Globulin 2.9 g/dL (1.7-4.1); Glucose 123 mg/dL (70-99); HEMOLYSIS < 15 (0-50); Sodium 139 mmol/L (137-145); Total Protein 7.2 g/dL (6.3-8.2)
[2024-09-26 15:51] LABS: NT-proBNP (BNP-Adult 18+) 6580 pg/mL (<450); Troponin I 0.102 ng/mL (0.01-0.034)
--- NOTE | 2024-09-26 17:23 | EKG_ITS ---
[address] [address] Test Date: 2024-09-26 Pat Name: Bj Simon Department: Room: Gender: Male Family Day Care Provider: EBENEZER : 1935 Requested By: Order Number: [id number] Reading MD: Vinnie Sorensen Measurements Intervals [place] Rate: 70 P: [place]: QRS: 68 QRSD: 194 T: 226 QT: 488 QTc: 527 Interpretive Statements Ventricular-paced rhythm Electronically Signed On 09-28-2024 17:39:23 PDT by Vinnie Sorensen
[2024-09-26 17:41] LABS: Troponin I 0.102 ng/mL (0.01-0.034)
--- NOTE | 2024-09-26 20:53 | PC.NURSE ---
Pt states that he feels better sitting up rather than laying down. Denies feelling SOB at this time. Speaking in full sentences.
--- NOTE | 2024-09-26 21:56 | ED_ITS ---
HPI - General Adult General Chief complaint: Shortness of Breath/Dyspnea Stated complaint: Tightness in Chest trouble breathing 2 days Time Seen by Provider: 09/26/24 20:48 Source: patient and family Mode of arrival: Wheelchair History of Present Illness HPI narrative: 89-year-old male with history of congestive heart failure, atrial fibrillation on Eliquis anticoagulation, uses inhalers at home. History of pneumonia treated with antibiotics 2 weeks ago, finished oral antibiotics. Now with 2 days duration increasing shortness of breath and cough nonproductive. Had anterior forehead melanoma excision, margins were clear, felt to be completely excised, has scabbed healing in that area. concern about recurrent pneumonia or worsening CHF. Denies chest pain. No leg pain or swelling. Related Data Home Medications Medication Instructions Recorded Confirmed allopurinol 100 mg tablet 100 mg PO DAILY ##0 07/28/12 09/08/24 ascorbic acid (vitamin C) 1,000 mg 1,000 mg PO DAILY ##0 08/03/12 09/08/24 tablet (Vitamin C) cholecalciferol (vitamin D3) 125 125 mcg PO DAILY ##0 08/03/12 09/08/24 mcg (5,000 unit) tablet (Vitamin D3) cyanocobalamin (vitamin B-12) 2,500 mcg sublingual DAILY ##0 08/03/12 09/08/24 2,500 mcg sublingual tablet (Vitamin B-12) apixaban 5 mg tablet (Eliquis) 5 mg PO BID 10/11/20 09/08/24 atorvastatin 40 mg tablet 40 mg PO BEDTIME 10/11/20 09/08/24 elderberry fruit 200 mg capsule 100 mg PO DAILY 10/11/20 09/08/24 pantoprazole 40 mg tablet,delayed 40 mg PO DAILY 10/11/20 09/08/24 release Previous Rx's Medication Instructions Recorded acetaminophen 325 mg capsule 650 mg (2 x 325 mg) PO QID PRN 10/30/20 (Tylenol) pain #60 caps acetaminophen 300 mg-codeine 30 mg 1 tab PO BID PRN pain #14 tabs 05/10/21 tablet ondansetron 4 mg disintegrating 4 mg PO Q6H PRN nausea and 08/11/24 tablet vomiting #10 tabs Allergies Allergy/AdvReac Type Severity Reaction Status Date / Time Sulfa (Sulfonamide Allergy Unknown RASH Verified 09/19/22 21:39 Antibiotics) trimethoprim Allergy Unknown RASH Verified 09/19/22 21:39 Patient History Medical History Alzheimers disease Skin cancer Easy bruisability Eczema Neuropathy Pain ANA MARIA (obstructive sleep apnea) Sinus drainage Pneumonia Afib Arthritis Vomiting Psoriasis GERD (gastroesophageal reflux disease) Gout Elevated blood-pressure reading without diagnosis of hypertension Contusion of left hand Abrasion of forehead Surgical History History of left knee replacement (~2007) History of repair of hiatal hernia (~2010) History of bladder surgery (1994) H/O inguinal hernia repair (~2007) S/P lumbar fusion Social History household members: spouse Smoking Status: Former smoker alcohol intake: never Smoking Status: Former smoker alcohol intake frequency: holidays/special occasions only Exam Narrative Exam Narrative: GENERAL: Well-developed patient, in mild distress. HEAD: Atraumatic. Normocephalic. Forehead region with scabs well-healing, from recent melanoma excision procedure of the skin. EYES: Pupils equal round and reactive. Extraocular motions intact. No scleral icterus. No injection or drainage. ENT: Nose without bleeding, purulent drainage. Throat without erythema, tonsillar hypertrophy or exudate. Airway patent. NECK: Trachea midline. Non tender CARDIOVASCULAR: Regular rate and rhythm without murmurs, gallops, or rubs. RESPIRATORY: Clear to auscultation. Breath sounds equal bilaterally. No wheezes, rales, or rhonchi. GASTROINTESTINAL: Abdomen soft, non-tender, nondistended. EXTREMITIES: No edema or joint tenderness. BACK: Nontender without deformity or crepitance. No flank tenderness. NEURO: AOx3. Motor functions grossly nonfocal SKIN: No rash or erythema of visible areas Initial Vital Signs Initial Vital Signs: Vital Signs Temperature 97.8 F 09/26/24 14:49 Pulse Rate 71 09/26/24 14:49 Respiratory Rate 18 09/26/24 14:49 Blood Pressure 117/61 09/26/24 14:49 Pulse Oximetry 98 09/26/24 14:49 Oxygen Delivery Method Room Air 09/26/24 14:49 Course Orders Ordered: Discontinued Medications Albuterol (Albuterol 2.5 Mg/3 Ml Neb (Adult)) 2.5 mg INH NOW ONE Stop: 09/26/24 21:42 Last Admin: 09/26/24 22:03 Dose: 2.5 mg Documented By: STEVEN Furosemide (Furosemide 40 Mg/4 Ml Vial) 40 mg IV NOW ONE Stop: 09/26/24 22:21 Last Admin: 09/26/24 22:30 Dose: 40 mg Documented By: TIERRA Furosemide 80 mg/ Sodium (Chloride) 58 mls @ 116 mls/hr IV NOW ONE Stop: 09/26/24 23:43 Last Infusion: 09/27/24 00:33 Dose: Infused Documented By: Admin: 09/26/24 23:56 Dose: 116 mls/hr Documented By: TIERRA Vital Signs Vital signs: Vital Signs - 8 hr 09/26/24 20:51 09/26/24 21:42 09/26/24 21:42 Pulse Rate 68 87 Respiratory Rate 19 20 Blood Pressure 128/78 125/68 Pulse Oximetry 98 97 Oxygen Delivery Method Room Air Room Air Fraction of Inspired Oxygen 09/26/24 22:00 09/26/24 22:00 09/26/24 22:08 Pulse Rate 70 81 Respiratory Rate 18 20 Blood Pressure 126/79 Pulse Oximetry 97 98 Oxygen Delivery Method Room Air Room Air Fraction of Inspired Oxygen 21 09/26/24 22:30 09/26/24 22:30 09/26/24 22:30 Pulse Rate 69 69 Respiratory Rate 30 H 30 H Blood Pressure 129/75 Pulse Oximetry 95 95 Oxygen Delivery Method Fraction of Inspired Oxygen 09/26/24 23:00 09/26/24 23:01 09/26/24 23:01 Pulse Rate 69 69 Respiratory Rate 28 H 23 Blood Pressure 144/77 H Pulse Oximetry 98 98 Oxygen Delivery Method Room Air Fraction of Inspired Oxygen 09/26/24 23:30 09/26/24 23:30 09/26/24 23:56 Pulse Rate 69 69 Respiratory Rate 26 H 25 H Blood Pressure 131/74 Pulse Oximetry 98 97 Oxygen Delivery Method Fraction of Inspired Oxygen 09/26/24 23:56 09/27/24 00:00 09/27/24 00:00 Pulse Rate 70 Respiratory Rate 24 Blood Pressure 139/75 133/78 Pulse Oximetry 97 Oxygen Delivery Method Fraction of Inspired Oxygen 09/27/24 00:30 09/27/24 00:31 09/27/24 00:31 Pulse Rate 69 69 Respiratory Rate 22 20 Blood Pressure 169/80 H Pulse Oximetry 98 97 Oxygen Delivery Method Room Air Fraction of Inspired Oxygen 09/27/24 01:00 09/27/24 01:00 09/27/24 01:30 Pulse Rate 69 Respiratory Rate 22 Blood Pressure 131/81 146/89 H Pulse Oximetry 98 Oxygen Delivery Method Room Air Fraction of Inspired Oxygen 09/27/24 01:30 Pulse Rate 69 Respiratory Rate 23 Blood Pressure Pulse Oximetry 99 Oxygen Delivery Method Room Air Fraction of Inspired Oxygen Medical Decision Making Lab Data Lab results reviewed: Yes I reviewed the patient's lab results. Lab results narrative: White blood cell count 8600, hemoglobin 12.4, platelets adequate. Glucose 123. BUN 23 with creatinine 1.51. Electrolytes unremarkable. Serum CO2 27. BNP 6580 similar elevation to earlier this month. Troponin 0.102 initial, subsequent repeat value the same value. Liver functions unremarkable. 09/26/24 15:15 09/26/24 15:15 Labs: Lab Results 09/26/24 09/26/24 Range/Units 15:15 17:10 WBC 8.6 (4.5-11.0) X10^3/uL RBC 3.69 L (4.5-5.9) X10^6/uL Hgb 12.4 L (13.5-17.5) g/dL Hct 37.4 L (41-53) % MCV 101.3 H (80-100) fL MCH 33.6 (26-34) PG MCHC 33.2 (30-36) % RDW 14.8 (11.6-14.8) % Plt Count 192 (150-400) X10^3/uL Neut % (Auto) 86.4 H (50-75) % Lymph % (Auto) 7.7 L (25-40) % [place] % (Auto) 5.4 (3-14) % Eos % (Auto) 0.4 L (2-4) % Baso % (Auto) 0.1 (0-2) % Neut # (Auto) 7400 H (5988-5206) /uL Lymph # (Auto) 700 L (2626-6751) /uL [place] # (Auto) 500 (0-900) /uL Eos # (Auto) 0 (0-450) /uL Baso # (Auto) 0 (0-100) /uL PT 25.1 H (9.4-12.5) SECONDS INR 2.3 H (0.9-1.3) Sodium 139 (137-145) mmol/L Potassium 4.0 (3.4-5.1) mmol/L Chloride 102 (98-107) mmol/L Carbon Dioxide 27 (22-32) mmol/L BUN 23 H (9-20) mg/dL Creatinine 1.51 H (0.66-1.25) mg/dL Estimated GFR 44 L (>60) mL/min BUN/Creatinine Ratio 15.2 (6-22) Glucose 123 H (70-99) mg/dL Lactate 1.0 (0.7-2.1) mmol/L Calcium 9.4 (8.4-10.2) mg/dL Total Bilirubin 1.0 (0.2-1.3) mg/dL AST 28 (17-59) IU/L ALT 18 (<50) IU/L Alkaline Phosphatase 136 H (38-126) U/L Troponin I 0.102 H 0.102 H (0.01-0.034) ng/mL NT-Pro-B Natriuret Pep 6580 H (<450) pg/mL Total Protein 7.2 (6.3-8.2) g/dL Albumin 4.3 (3.5-5.0) g/dL Globulin 2.9 (1.7-4.1) g/dL Albumin/Globulin Ratio 1.5 (1.0-2.8) Imaging Data Chest x-ray: Radiologist's Impression: [address] [address] XRay Report Signed Patient: Bj Simon MR#: [id number] : 1935 Acct:[id number] Age/Sex: 89 / M Date of Service: 09/26/24 Loc: ED Accession Number: [id number] Procedure: XR chest 1V Ordering Provider: Sanjuana Liriano D.O. PROCEDURE: XR CHEST 1V INDICATIONS: Shortness of breath TECHNIQUE: One view of the chest was acquired. COMPARISON: [facility], CR, XR CHEST 1V, 09/08/2024, 1:50. FINDINGS: Surgical changes and devices: Lead less pacer is noted. Lungs and pleura: Mild pulmonary vascular congestion. No definite focal infiltrate. Blunting of right costophrenic angle is seen suggestive of trace right pleural effusion. Mediastinum: Tortuous thoracic aorta is seen. Heart size is enlarged. Bones and chest wall: No suspicious bony lesions. Overlying soft tissues appear unremarkable. IMPRESSION: Finding is suggestive of mild CHF and small right pleural effusion. No definite focal infiltrate. No pneumothorax. Dictated by: Chava Hubbard M.D. on 09/26/2024 at 15:56 Approved by: Chava Hubbard M.D. on 09/26/2024 at 15:57 ECG Data Attestation: I personally reviewed and interpreted this ECG as follows: Interpretation: 1510, ventricular paced rhythm with rate 70, QRS 192, QTC 531. 1723, ventricular paced rhythm with rate of 70, QRS 194, QTC 527. MDM Narrative Medical decision making narrative: 89-year-old male with history of CHF, prior pacemaker, uses inhalers at home, recent pneumonia diagnosis completed antibiotics couple of weeks ago, not currently on antibiotics, with few days of cough and increasing shortness of breath. EKG, chest x-ray, labs pending. EKGs showed paced ventricular rhythm, rate 70. Troponin 0.102 initial and repeat same value, not increasing. BNP 6500 increased, similar to prior value. Chest x-ray suspicious for fluid overload changes, no infiltrate. See radiology report. Breathing treatment albuterol nebulized, no significant change dyspnea symptoms. Chest x-ray and BNP elevation suspicious for CHF, IV Lasix 40mg trial. Patient agreeable. 2345, little output response so far 180 mL, we will repeat Lasix at 80 mg IV dose Further urine output. Feels much better. He would like to go home. He does not want to have any further evaluation here tonight. at bedside concurs. They would like to be discharged home. Follow up with PCP later this week or early next week advised. Keep same dose of chronic oral Lasix for now, they can not recall the dose. Hopefully after diuresis his regular scheduled dosage Lasix will be better absorbed and more effective. Consider close follow up for repeat electrolytes blood draw recheck. Return precautions discussed. Discharged home per their request. Discharge Plan Departure Patient Disposition: Home Clinical Impression: Dyspnea, Congestive heart failure Activity Restrictions/Additional Instructions: Recent pneumonia treatment, off antibiotics for a number of days, with increasing shortness of breath over the last couple of days. History of congestive heart failure. Chest x-ray suggestive of fluid overload. No obvious pneumonia changes. IV Lasix dose was given, with little urine output initially, increased dose of Lasix IV was given, was significantly improved output of urine, and significant improvement in symptoms. You felt better, and requested to go home. You did not want any further evaluation for now. Consider close follow up for electrolyte recheck with your regular doctor. Return to this/nearest emergency department for any change worsening symptoms or any concerns prior. Prescriptions: No Action allopurinol 100 MG tablet 100 mg PO DAILY Qty: 0 ascorbic acid (vitamin C) [Vitamin C] 1,000 mg Tablet 1,000 mg PO DAILY Qty: 0 cyanocobalamin (vitamin B-12) [Vitamin B-12] 2,500 mcg Tablet, Sublingual 2,500 mcg SUBLINGUAL DAILY Qty: 0 cholecalciferol (vitamin D3) [Vitamin D3] 125 mcg (5,000 unit) Tablet 125 mcg PO DAILY Qty: 0 pantoprazole 40 mg tablet,delayed release (DR/EC) 40 mg PO DAILY Eliquis 5 mg tablet 5 mg PO BID atorvastatin 40 mg tablet 40 mg PO BEDTIME elderberry fruit 200 mg capsule 100 mg PO DAILY acetaminophen [Tylenol] 325 mg capsule 650 mg PO QID PRN (Reason: pain) Qty: 60 0RF acetaminophen-codeine 300-30 mg tablet 1 tab PO BID PRN (Reason: pain) Qty: 14 0RF Rx Instructions: prescription 2 of 2 ondansetron 4 mg tablet,disintegrating 4 mg PO Q6H PRN (Reason: nausea and vomiting) Qty: 10 0RF Referrals: Martha Khanna ARNP [Primary Care Provider] - Stand Alone Forms: Patient Portal/API/Survey
[2024-09-26] MEDS: ALBUTEROL 2.5 MG/3 ML NEB (ADULT) INH (22:03)
[2024-09-26] MEDS: FUROSEMIDE 40 MG/4 ML VIAL IV (22:30)
[2024-09-26] MEDS: FUROSEMIDE 80 MG in SODIUM CHLORIDE 0.9% 50 ML 116 MG IV (23:56)
[2024-09-27] VITALS (7 sets, daily range): BP systolic 131–169; BP diastolic 78–89; PULSE 69–70; RESP 20–24; O2SAT 97–99
--- NOTE | 2024-09-27 01:22 | PC.NURSE ---
Attempted to do ambulation trial for increasing SOB with exertion. Pt and spouse refuse stating its not necessary since pt doesn't walk much at home. State he feels he is doing much better and both pt and feel comfortable with discharge at this time. Dr. Douglas informed.
== END 2024-09-27 03:11 | disposition home or self-care (01) ==
PROVIDERS: Emergency Medicine; Emergency Provider Emergency Medicine; PCP Nurse Practitioner
DX: R06.00 Dyspnea, unspecified (principal); I50.9 Heart failure, unspecified; R05.9 Cough, unspecified
CPT/HCPCS: 36415; 71045; 80053; 83605; 83880; 84484; 85025; 85610; 93005; 94640; 96365; 96375; 99284; J1938; J7613

== ENCOUNTER → 2024-11-01 10:26 | Outpatient (CLI) | payer MEDICARE, OTHER, SELFPAY ==
[2024-09-08 03:55] VITALS: BMI 20.6
--- NOTE | 2024-11-01 14:02 | ST.SWALLOW ---
Visit Care Team Role Provider Type OLIVIER Patino Primary Care Provider Non-Staff Specialty: Nursing Address: [address], [address], [place], [address] Email: OLIVIER White Attending Provider Non-Staff Referring Provider Specialty: Gastroenterology Address: [address] , [place], [address] Email: Modified Barium Swallow Study [employer] WORKER Modified Barium Swallow Study Start: 11/01/24 12:12 Freq: Status: Active Protocol: Document 11/01/24 12:30 LNK (Rec: 11/01/24 14:02 LNK Desktop) Modified Barium Swallow Study Total Time Visit Start Time 11:00 Visit Stop Time 11:45 Total Visit Minutes 45 Referral Referring Physician Cony Rodriguez Reason for Referral dysphagia Setting Setting Outpatient Care Patient Information Identification Type Name,Date of Patient History Pt was seen for a Modified Barium Swallow Study. Pt was accompanied by his , who provided background history. Pt's PMH included GERD, hiatal hernia, Afib, Alzheimer's and pneumonia. Pt was recently admitted to (09/08/24) with multifocal pneumonia. He was discharged home after 1 day. On 09/26/24 pt was seen at ED with difficulty breathing. A chest xray at that visit indicated mild CHF and small right lobe plural effusion. Pt was treated and discharged home. According to the pt and his , he recently underwent EGD that indicated a large hiatal hernia. They said that the pt has a history of a hiatal hernia that was repaired approximately 10 years ago. Currently, the pt reported frequent regurgitation of undigested foods/liquids. Sometimes regurgitation is immediate at other times delayed. This happens frequently every day. Liquids are regurgitated more frequently than solids. Often, he chokes or coughs. He also c/o very thick and copious phlegm that can be regurgitated as well. Subjective Pt was seated in the flouroscopy chair with directions Observations and procedures explained for him. He indicated he understood and agreed to proceed Patient Positioning Position View Lat-A/P Imaging Lateral View Textures Administered Trials Presented Thin Liquid via Spoon (IDDSI 0),Thin Liquid via Cup ( IDDSI 0),Regular (IDDSI 7) Barium Tablet No The IDDSI Framework Protocol: IDDSI.1 Oral Impairment Source: The Modified Barium Swallow Impairment Profile (MBSImP??) Lip Closure No labial escape Tongue Control Cohesive bolus between tongue to palatal seal During Bolus Hold Bolus Preparation/ Timely & efficient chewing & mashing Mastication Bolus Transport/ Delayed initiation of tongue motion Lingual Motion Oral Residue Trace residue lining oral structures Location Tongue Initiation of Bolus head at posterior laryngeal surface of epiglottis Pharyngeal Swallow Additional Oral *OME and DKS were observed to be WNL. Impairment *Dentition natural and in good hygiene Observations *Mastication observed with a few missing posterior teeth. *Rotary chew pattern good bolus formation, control and AP transition. *Velopharyngeal closure was WNL. Pharyngeal Impairment Source: The Modified Barium Swallow Impairment Profile (MBSImP??) Soft Palate No bolus between soft palate & pharyngeal wall Elevation Laryngeal Elevation Part.sup.move.thyroid cart/part.approx.arytenoids to epiglot.petiole Anterior Hyoid Partial anterior movement Excursion Epiglottic Movement Complete inversion Laryngeal Vestibular Incomplete; narrow column air/contrast in laryngeal Closure vestibule Pharyngeal Stripping Present - complete Wave Pharyngoesophageal Complete distention & complete duration; no obstruction Segment Opening of flow Tongue Base Narrow column of contrast/air betwn tongue base & post. Retraction pharyngeal wall Pharyngeal Residue Complete pharyngeal clearance Additional *Reduced base of tongue retraction strength with Pharyngeal reduced hyolaryngeal elevation and movement Impairment *Complete epiglottic inversion; however the seal of the Observations laryngeal vestibule was was incomplete, allowing for penetration of contrast into the larynx *Pharyngeal stripping and UES opening duration and extension appeared to be normal *Flash penetration observed x3 (PAS 3: penetrates larynx, above folds, visible laryngeal residue) *As pt chewed solids, he swallowed a small amount at a time (Trial1/2 small cookie/barium). Several swallows were needed to clear the cookie. As the pt continued to chew, regurgitation of the previous swallow through the UES was observed. *With a single typical swallow of thin barium, the barium was observed, immediately, to reverse flow back into the pharynx and then was re-swallowed. A trial of consecutive swallows was not attempted as the large amount and frequency of the swallows would likely be regurgitated and increase the pt's risk of aspiration. A/P View Textures Administered Trials Presented Thin Liquid via Cup (IDDSI 0) The IDDSI Framework Protocol: IDDSI.1 A/P View Observations Pharyngeal Complete Contraction Esophageal Clearance Minimal to no esophageal clearance Upright Position Vocal Fold Function Good Esophageal Function Poor Motility,Reverse Peristalsis,Stasis,Narrowing Additional A-P *In the AP position ,and before any trials, the Observations esophagus was observed to be full of contrast up to the lower edge of the heart with reverse flow above the heart up to the UES *A swallow of barium was observed. The esophagus was seen to narrow and coil, pushing the barium upward to the UES *Minimal peristalsis and esophageal clearance to the stomach was observed. * The MBSS was stopped after several minutes with barium remaining in the esophagus Clinical Impressions Dysphagia Type Pharyngeal,Esophageal Findings *Mild pharyngeal phase dysphagia *Severe esophageal dysphagia. (SEE ABOVE NOTES) Minimal clearance of barium trials with reverse flow to and through the UES were observed. This significantly increases the pts risk for aspiration. As reported in the background information, the pt was seen at ED for difficulty breathing. It is possible that pt's diagnoses, during ED visits, of bilateral infiltrates, CHF and right lobe plural effusion may be aspiration related. *Referral back to GI is recommended Patient Appropriate No for Therapy Recommendations Diet Comments no diet change recommended at this time Aspiration Precautions Recommended Upright at 90 Degrees,Frequent Rest Periods,Small Bites Precautions /Sips Treatment Plan Recommended GI Consult Referrals Therapy Strategy Sitting Upright (90 deg),Small Bites and Sips,Alternate Recommendations Liquids/Solids
== END ==
PROVIDERS: PCP Nurse Practitioner; Referring Provider Nurse Practitioner Family; Visit Provider Nurse Practitioner Family
DX: R13.19 Other dysphagia (principal); R91.8 Other nonspecific abnormal finding of lung field
CPT/HCPCS: 74230; 92611

== ENCOUNTER 2024-11-01 16:07 | Emergency (ER) | payer MEDICARE, OTHER, SELFPAY ==
[2024-09-08 03:55] VITALS: BMI 20.6
[2024-11-01] VITALS (12 sets, daily range): BP systolic 116–164; BP diastolic 64–90; PULSE 68–72; RESP 19–28; TEMP 36.3; O2SAT 94–99; BMI 19.1
--- NOTE | 2024-11-01 16:32 | EKG_ITS ---
[address] [address] Test Date: 2024-11-01 Pat Name: Bj Simon Department: Room: Gender: Male Hygiene Assistant: EBENEZER : 1935 Requested By: Order Number: [id number] Reading MD: Jeanmarie Chiu Measurements Intervals [place] Rate: 70 P: NC: QRS: 60 QRSD: 188 T: 209 QT: 480 QTc: 518 Interpretive Statements Ventricular-paced rhythm Electronically Signed On 11-03-2024 17:25:46 PDT by Jeanmarie Chiu
--- NOTE | 2024-11-01 18:40 | DI.CT.S_ITS ---
PROCEDURE: CT ABDOMEN PELVIS WO CON INDICATIONS: abdominal pain TECHNIQUE: After the administration of oral contrast, 5 mm thick sections acquired from the diaphragms to the symphysis. 5 mm coronal and sagittal reformats were performed. For radiation dose reduction, the following was used: automated exposure control, adjustment of mA and/or kV according to patient size. COMPARISON: [facility], CT, CT ABDOMEN PELVIS WITH CONTRAST, 10/20/2024, 17:26. FINDINGS: Image quality: Diagnostic. Lower Chest: Stable left basilar consolidation with trace left pleural effusion. Cardiomegaly and borderline ectasia of the ascending aorta measuring 4 cm. ABDOMEN: Liver: No contour-deforming mass. Gallbladder: No radiopaque gallstones or wall thickening. Biliary ducts: No biliary dilation. Pancreas: No ductal dilation. Spleen: Size is within normal limits. Adrenal Glands: No adrenal nodules. Kidneys and Ureters: No hydronephrosis. No contour-deforming mass. Stomach and Bowel: Normal colonic caliber, without significant wall thickening. Peritoneum: No abnormal intraperitoneal fluid. No free air. Ventral Wall: No significant hernia. Abdominal Nodes: No retroperitoneal or mesenteric adenopathy by size criteria. Vessels: Aorta and inferior vena cava are normal in size. PELVIS: Pelvic Organs: Unremarkable. Bladder: Unremarkable. Pelvic Nodes: No enlarged lymph nodes. Miscellaneous: No inguinal hernias are seen. Bones: No aggressive osseous abnormality. IMPRESSION: 1. No definite acute intra-abdominal abnormality seen allowing for lack of IV contrast. 2. Stable appearance of left basilar lung consolidation, probably due to chronic aspiration. Dictated by: Beau Feliciano M.D. on 11/01/2024 at 19:29 Approved by: Beau Feliciano M.D. on 11/01/2024 at 19:33
--- NOTE | 2024-11-01 18:47 | ED.ABDPAIN ---
HPI - Abdominal Pain General Chief Complaint: Abdominal Pain Stated Complaint: Severe Abdominal pain Time Seen by Provider: 11/01/24 18:39 Source: patient Mode of arrival: Wheelchair History of Present Illness HPI narrative: 89-year-old male with history of hiatal hernia remote repair done at [facility] 10 years ago, more recently followed by GI at [facility], had endoscopy 2 weeks ago, this morning had barium swallow, awaiting follow up appointment with [facility], complains now of 2 days duration bilateral lower abdominal discomfort. No trauma or new activities. History of constipation, history of diverticulitis, last bowel movement earlier today without black or red or loose appearance, no fevers or chills. Is here now predominantly for the lower abdominal pain. Denies painful or frequent urination. Also admits to recent cough. Related Data Home Medications ?Medication ?Instructions ?Recorded ?Confirmed allopurinol 100 mg tablet 100 mg PO DAILY ##0 07/28/12 09/08/24 ascorbic acid (vitamin C) 1,000 mg 1,000 mg PO DAILY ##0 08/03/12 09/08/24 tablet (Vitamin C) cholecalciferol (vitamin D3) 125 125 mcg PO DAILY ##0 08/03/12 09/08/24 mcg (5,000 unit) tablet (Vitamin D3) cyanocobalamin (vitamin B-12) 2,500 mcg sublingual DAILY ##0 08/03/12 09/08/24 2,500 mcg sublingual tablet (Vitamin B-12) apixaban 5 mg tablet (Eliquis) 5 mg PO BID 10/11/20 09/08/24 atorvastatin 40 mg tablet 40 mg PO BEDTIME 10/11/20 09/08/24 elderberry fruit 200 mg capsule 100 mg PO DAILY 10/11/20 09/08/24 pantoprazole 40 mg tablet,delayed 40 mg PO DAILY 10/11/20 09/08/24 release Previous Rx's ?Medication ?Instructions ?Recorded acetaminophen 325 mg capsule 650 mg (2 x 325 mg) PO QID PRN 10/30/20 (Tylenol) pain #60 caps acetaminophen 300 mg-codeine 30 mg 1 tab PO BID PRN pain #14 tabs 05/10/21 tablet ondansetron 4 mg disintegrating 4 mg PO Q6H PRN nausea and 08/11/24 tablet vomiting #10 tabs Allergies Allergy/AdvReac Type Severity Reaction Status Date / Time Sulfa (Sulfonamide Allergy Unknown RASH Verified 11/01/24 16:22 Antibiotics) trimethoprim Allergy Unknown RASH Verified 11/01/24 16:22 Patient History Medical History Alzheimers disease Skin cancer Easy bruisability Eczema Neuropathy Pain ANA MARIA (obstructive sleep apnea) Sinus drainage Pneumonia Afib Arthritis Vomiting Psoriasis GERD (gastroesophageal reflux disease) Gout Elevated blood-pressure reading without diagnosis of hypertension Contusion of left hand Abrasion of forehead Surgical History History of left knee replacement (~2007) History of repair of hiatal hernia (~2010) History of bladder surgery (1994) H/O inguinal hernia repair (~2007) S/P lumbar fusion Social History household members: spouse Smoking Status: Former smoker alcohol intake: never Smoking Status: Former smoker alcohol intake frequency: holidays/special occasions only Exam Narrative Exam Narrative: GENERAL: Well-developed patient, in mild distress. HEAD: Atraumatic. Normocephalic. EYES: Pupils equal round and reactive. Extraocular motions intact. No scleral icterus. No injection or drainage. ENT: Nose without bleeding, purulent drainage. Throat without erythema, tonsillar hypertrophy or exudate. Airway patent. NECK: Trachea midline. Non tender CARDIOVASCULAR: Regular rate and rhythm without murmurs, gallops, or rubs. RESPIRATORY: Clear to auscultation. Breath sounds equal bilaterally. No wheezes, rales, or rhonchi. GASTROINTESTINAL: Abdomen soft, non-tender, nondistended. EXTREMITIES: No edema or joint tenderness. BACK: Nontender without deformity or crepitance. No flank tenderness. NEURO: AOx3. Motor functions grossly nonfocal. SKIN: No rash or erythema of visible areas Initial Vital Signs Initial Vital Signs: Vital Signs Temperature 97.4 F L 11/01/24 16:22 Pulse Rate 70 11/01/24 16:22 Respiratory Rate 20 11/01/24 16:22 Blood Pressure 134/65 11/01/24 16:22 Pulse Oximetry 97 11/01/24 16:22 Oxygen Delivery Method Room Air 11/01/24 16:22 Course Orders Ordered: ED Orders 11/01/24 18:33 Complete Blood Count AUTO DIFF Stat 11/01/24 18:40 CT abdomen pelvis wo con Stat 11/01/24 19:06 XR chest 1V Stat 11/01/24 19:38 Comprehensive Metabolic Panel Stat Lipase Stat 11/01/24 20:17 Covid-19 + FLU A/B + RSV - PCR Stat Discontinued Medications Hydrocodone Bitart/Acetaminophen (Hydrocodone/Acet 5/325 Prepack) 1 bottle MISC DIRECTED ONE Stop: 11/01/24 21:52 Last Admin: 11/01/24 22:02 Dose: 1 bottle Documented By: VIBHA Famotidine (Famotidine 20 Mg/2 Ml Vial) 20 mg IV NOW GEORGE Last Admin: 11/01/24 20:11 Dose: 20 mg Documented By: VIBHA Hydromorphone HCl (Hydromorphone 0.5 Mg Inj) 0.5 mg IV NOW ONE Stop: 11/01/24 19:22 Last Admin: 11/01/24 19:43 Dose: 0.5 mg Documented By: VIBHA Ondansetron HCl (Ondansetron 4 Mg/2 Ml Inj) 4 mg IV NOW PRN PRN Reason: Nausea And Vomiting Ondansetron HCl (Ondansetron 4 Mg Odt) 4 mg PO NOW PRN PRN Reason: Nausea And Vomiting Ondansetron HCl (Ondansetron 4 Mg/2 Ml Inj) 4 mg IV NOW ONE Stop: 11/01/24 19:27 Last Admin: 11/01/24 19:42 Dose: 4 mg Documented By: VIBHA Vital Signs Vital signs: Vital Signs - 8 hr 11/01/24 18:34 11/01/24 18:34 11/01/24 19:01 Pulse Rate 70 72 Respiratory Rate 24 Blood Pressure 147/73 H Pulse Oximetry 97 Oxygen Delivery Method 11/01/24 19:30 11/01/24 19:47 11/01/24 19:47 Pulse Rate 69 69 Respiratory Rate 28 H 22 Blood Pressure 142/78 H Pulse Oximetry 99 96 Oxygen Delivery Method Room Air 11/01/24 20:00 11/01/24 20:00 11/01/24 20:30 Pulse Rate 69 69 Respiratory Rate 24 22 Blood Pressure 139/76 Pulse Oximetry 98 96 Oxygen Delivery Method Room Air Room Air 11/01/24 20:30 11/01/24 21:00 11/01/24 21:00 Pulse Rate 70 Respiratory Rate 24 Blood Pressure 154/80 H 146/85 H Pulse Oximetry 96 Oxygen Delivery Method Room Air 11/01/24 21:30 11/01/24 21:30 11/01/24 22:00 Pulse Rate 71 69 Respiratory Rate 19 23 Blood Pressure 148/83 H Pulse Oximetry 96 97 Oxygen Delivery Method Room Air Room Air 11/01/24 22:00 Pulse Rate Respiratory Rate Blood Pressure 164/90 H Pulse Oximetry Oxygen Delivery Method MDM - Abdominal Pain Lab Data 11/01/24 18:33 11/01/24 19:38 Labs: Lab Results 11/01/24 11/01/24 11/01/24 Range/Units 18:33 19:38 20:17 WBC 9.4 (4.5-11.0) X10^3/uL RBC 3.54 L (4.5-5.9) X10^6/uL Hgb 12.2 L (13.5-17.5) g/dL Hct 36.1 L (41-53) % MCV 101.8 H (80-100) fL MCH 34.4 H (26-34) PG MCHC 33.8 (30-36) % RDW 14.6 (11.6-14.8) % Plt Count 179 (150-400) X10^3/uL Neut % (Auto) 86.2 H (50-75) % Lymph % (Auto) 5.8 L (25-40) % [place] % (Auto) 7.2 (3-14) % Eos % (Auto) 0.5 L (2-4) % Baso % (Auto) 0.3 (0-2) % Neut # (Auto) 8100 H (8775-2160) /uL Lymph # (Auto) 500 L (0101-8884) /uL [place] # (Auto) 700 (0-900) /uL Eos # (Auto) 0 (0-450) /uL Baso # (Auto) 0 (0-100) /uL Sodium 138 (137-145) mmol/L Potassium 4.4 (3.4-5.1) mmol/L Chloride 101 (98-107) mmol/L Carbon Dioxide 29 (22-32) mmol/L BUN 31 H (9-20) mg/dL Creatinine 1.32 H (0.66-1.25) mg/dL Estimated GFR 52 L (>60) mL/min BUN/Creatinine Ratio 23.5 H (6-22) Glucose 119 H (70-99) mg/dL Calcium 9.5 (8.4-10.2) mg/dL Total Bilirubin 1.1 (0.2-1.3) mg/dL AST 23 (17-59) IU/L ALT 15 (<50) IU/L Alkaline Phosphatase 92 (38-126) U/L Total Protein 7.1 (6.3-8.2) g/dL Albumin 4.2 (3.5-5.0) g/dL Globulin 2.9 (1.7-4.1) g/dL Albumin/Globulin Ratio 1.4 (1.0-2.8) Lipase 11 L (23-300) U/L SARS-CoV-2 (PCR) Negative (Negative) Influenza A (RT-PCR) Flu a negative (NEGATIVE) Influenza B (RT-PCR) Flu b negative (NEGATIVE) RSV (PCR) Negative (Negative) Imaging Data CT scan - abdomen/pelvis: Radiologist's Impression: [place] [address] CT Scan Report Signed Patient: Bj Simon MR#: [id number] : 1935 Acct:[id number] Age/Sex: 89 / M Date of Service: 11/01/24 Loc: ED Accession Number: [id number] Procedure: CT abdomen pelvis wo con Ordering Provider: Jaime Douglas MD PROCEDURE: CT ABDOMEN PELVIS WO CON INDICATIONS: abdominal pain TECHNIQUE: After the administration of oral contrast, 5 mm thick sections acquired from the diaphragms to the symphysis. 5 mm coronal and sagittal reformats were performed. For radiation dose reduction, the following was used: automated exposure control, adjustment of mA and/or kV according to patient size. COMPARISON: [facility], CT, CT ABDOMEN PELVIS WITH CONTRAST, 10/20/2024, 17:26. FINDINGS: Image quality: Diagnostic. Lower Chest: Stable left basilar consolidation with trace left pleural effusion. Cardiomegaly and borderline ectasia of the ascending aorta measuring 4 cm. ABDOMEN: Liver: No contour-deforming mass. Gallbladder: No radiopaque gallstones or wall thickening. Biliary ducts: No biliary dilation. Pancreas: No ductal dilation. Spleen: Size is within normal limits. Adrenal Glands: No adrenal nodules. Kidneys and Ureters: No hydronephrosis. No contour-deforming mass. Stomach and Bowel: Normal colonic caliber, without significant wall thickening. Peritoneum: No abnormal intraperitoneal fluid. No free air. Ventral Wall: No significant hernia. Abdominal Nodes: No retroperitoneal or mesenteric adenopathy by size criteria. Vessels: Aorta and inferior vena cava are normal in size. PELVIS: Pelvic Organs: Unremarkable. Bladder: Unremarkable. Pelvic Nodes: No enlarged lymph nodes. Miscellaneous: No inguinal hernias are seen. Bones: No aggressive osseous abnormality. IMPRESSION: 1. No definite acute intra-abdominal abnormality seen allowing for lack of IV contrast. 2. Stable appearance of left basilar lung consolidation, probably due to chronic aspiration. Dictated by: Beau Feliciano M.D. on 11/01/2024 at 19:29 Approved by: Beau Feliciano M.D. on 11/01/2024 at 19:33 Chest x-ray: Radiologist's Impression: [place] [address] XRay Report Signed Patient: Bj Simon MR#: [id number] : 1935 Acct:[id number] Age/Sex: 89 / M Date of Service: 11/01/24 Loc: ED Accession Number: [id number] Procedure: XR chest 1V Ordering Provider: Jaime Douglas MD PROCEDURE: XR CHEST 1V INDICATIONS: Crackles on exam TECHNIQUE: One view of the chest was acquired. COMPARISON: [facility], CR, XR CHEST 1V, 09/26/2024, 15:10. [facility], CR, XR CHEST 1V, 09/08/2024, 1:50. FINDINGS: Surgical changes and devices: None. Lungs and pleura: Stable patchy left lower lobe consolidation. No new infiltrate. Mediastinum: Mediastinal contours appear normal. Heart size is normal. Bones and chest wall: No suspicious bony lesions. Overlying soft tissues appear unremarkable. IMPRESSION: Grossly stable left lower lobe consolidation, no new infiltrate or significant pleural effusion. Dictated by: Beau Feliciano M.D. on 11/01/2024 at 19:48 Approved by: Beau Feliciano M.D. on 11/01/2024 at 19:49 ECG Data Attestation: I personally reviewed and interpreted this ECG as follows: Interpretation: 1641, Ventricular paced rhythm with rate 70, QRS 188, QTC 518. [facility] Narrative Medical decision making narrative: 89-year-old male with hiatal hernia remote repair recent EGD by [facility], barium swallow earlier today, awaiting GI follow up, complains predominantly today of lower abdominal right and left pain for the last couple of days, history of constipation, history of diverticulitis. Afebrile, vitals normal. Requests pain medication, IV Dilaudid/Zofran. CT abdomen and pelvis. Impressions: ?1. No definite acute intra-abdominal abnormality seen allowing for lack of IV contrast. 2. Stable appearance of left basilar lung consolidation, probably due to chronic aspiration. See radiology report. Chest x-ray shows stable left basilar lung consolidation as well. See radiology report. No acute findings in abdomen imaging to explain lower abdominal problems today. Consider trial of MiraLax [id number]. Consider [id number] Fleet's enema. Though there was no mention of significant stool burden on report CT abdomen and pelvis. Consider colonoscopy in follow up. Chest x-ray and lower lobe CT imaging mentioned left pulmonary consolidation, but apparently unchanged from prior imaging. No respiratory complaints. They would like something for pain control. Home pack of hydrocodone/APAP. Follow up advised with their GI [facility] provider regarding difficulty with swallowing liquids. Seems to be controlling his oral secretions well while here in the emergency department. Discharge Plan Departure Patient Disposition: Home Clinical Impression: Lower abdominal pain Activity Restrictions/Additional Instructions: Lower abdominal pain of unclear cause, CT abdomen and pelvis today did not show any acute changes in that region to explain symptoms. You could consider use of MiraLax [id number]-[id number] stool softener if needed. You could consider use of fleets enema. However there was not really any description of significant colonic stool in the rectal region. Consider colonoscopy evaluation if pain symptoms persist and are unexplained. You have had trouble with swallowing liquids, had upper endoscopy by [facility] emblem drawer in, and barium swallow, follow up with your emblem drawer in for further follow up with this problem. Chest x-ray mentioned left basilar infiltrate but stable from previous studies, we will hold on new antibiotics at this time. Recheck lung symptoms and abdominal symptoms with your regular doctor in follow up in the next couple of days. Return to this/nearest emergency department for any change worsening symptoms or any concerns prior. Prescriptions: No Action allopurinol 100 MG tablet 100 mg PO DAILY Qty: 0 ascorbic acid (vitamin C) [Vitamin C] 1,000 mg Tablet 1,000 mg PO DAILY Qty: 0 cyanocobalamin (vitamin B-12) [Vitamin B-12] 2,500 mcg Tablet, Sublingual 2,500 mcg SUBLINGUAL DAILY Qty: 0 cholecalciferol (vitamin D3) [Vitamin D3] 125 mcg (5,000 unit) Tablet 125 mcg PO DAILY Qty: 0 pantoprazole 40 mg tablet,delayed release (DR/EC) 40 mg PO DAILY Eliquis 5 mg tablet 5 mg PO BID atorvastatin 40 mg tablet 40 mg PO BEDTIME elderberry fruit 200 mg capsule 100 mg PO DAILY acetaminophen [Tylenol] 325 mg capsule 650 mg PO QID PRN (Reason: pain) Qty: 60 0RF acetaminophen-codeine 300-30 mg tablet 1 tab PO BID PRN (Reason: pain) Qty: 14 0RF Rx Instructions: prescription 2 of 2 ondansetron 4 mg tablet,disintegrating 4 mg PO Q6H PRN (Reason: nausea and vomiting) Qty: 10 0RF Referrals: Martha Khanna ARNP [Primary Care Provider, Nursing] Stand Alone Forms: Patient Portal/API
--- NOTE | 2024-11-01 19:06 | DI.RAD.S_ITS ---
PROCEDURE: XR CHEST 1V INDICATIONS: Crackles on exam TECHNIQUE: One view of the chest was acquired. COMPARISON: [facility], CR, XR CHEST 1V, 09/26/2024, 15:10. [facility], CR, XR CHEST 1V, 09/08/2024, 1:50. FINDINGS: Surgical changes and devices: None. Lungs and pleura: Stable patchy left lower lobe consolidation. No new infiltrate. Mediastinum: Mediastinal contours appear normal. Heart size is normal. Bones and chest wall: No suspicious bony lesions. Overlying soft tissues appear unremarkable. IMPRESSION: Grossly stable left lower lobe consolidation, no new infiltrate or significant pleural effusion. Dictated by: Beau Feliciano M.D. on 11/01/2024 at 19:48 Approved by: Beau Feliciano M.D. on 11/01/2024 at 19:49
[2024-11-01 19:07] LABS: Add Manual Diff / Slide Review NO; Basophils Absolute Auto 0 /uL (0-100); Basophils Percent Auto 0.3 % (0-2); Eosinophils Absolute Auto 0 /uL (0-450); Eosinophils Percent Auto 0.5 % (2-4); Hematocrit 36.1 % (41-53); Hemoglobin 12.2 g/dL (13.5-17.5); Lymphocytes Absolute Auto 500 /uL (1100-4500); Lymphocytes Percent Auto 5.8 % (25-40); Mean Corpuscular HGB Conc 33.8 % (30-36); Mean Corpuscular Hemoglobin 34.4 PG (26-34); Mean Corpuscular Volume 101.8 fL (80-100); Monocytes Absolute Auto 700 /uL (0-900); Monocytes Percent Auto 7.2 % (3-14); Neutrophils Absolute Auto 8100 /uL (1500-7000); Neutrophils Percent Auto 86.2 % (50-75); Platelet Count 179 X10^3/uL (150-400); Red Blood Cell Count 3.54 X10^6/uL (4.5-5.9); Red Cell Distribution Width 14.6 % (11.6-14.8); White Blood Cell Count 9.4 X10^3/uL (4.5-11.0)
[2024-11-01] MEDS: ONDANSETRON 4 MG/2 ML INJ IV (19:42)
[2024-11-01] MEDS: HYDROMORPHONE 0.5 MG INJ IV (19:43)
[2024-11-01 20:05] LABS: Alanine Aminotransferase 15 IU/L (<50); Albumin 4.2 g/dL (3.5-5.0); Albumin Globulin Ratio 1.4 (1.0-2.8); Alkaline Phosphatase 92 U/L (38-126); Aspartate Aminotransferase 23 IU/L (17-59); BUN Creatinine Ratio 23.5 (6-22); Bilirubin Total 1.1 mg/dL (0.2-1.3); Blood Urea Nitrogen 31 mg/dL (9-20); Calcium 9.5 mg/dL (8.4-10.2); Carbon Dioxide 29 mmol/L (22-32); Chloride 101 mmol/L (98-107); Estimated Glomerular Filt Rate 52 mL/min (>60); Globulin 2.9 g/dL (1.7-4.1); Glucose 119 mg/dL (70-99); HEMOLYSIS 24 (0-50); Lipase 11 U/L (23-300); Potassium 4.4 mmol/L (3.4-5.1); Sodium 138 mmol/L (137-145); Total Protein 7.1 g/dL (6.3-8.2)
[2024-11-01] MEDS: FAMOTIDINE 20 MG/2 ML VIAL IV (20:11)
[2024-11-01 21:07] LABS: Influenza A - CEPHEID Flu A NEGATIVE (NEGATIVE); Influenza B - CEPHEID Flu B NEGATIVE (NEGATIVE); Respiratory Syncytial Virus Negative (Negative)
[2024-11-01 21:10] LABS: COVID-19 CEPHEID 4-PLEX PCR Negative (Negative)
[2024-11-01] MEDS: HYDROCODONE/ACET 5/325 PREPACK 1 BOTTLE MISC (22:02)
== END 2024-11-01 22:15 | disposition home or self-care (01) ==
PROVIDERS: Emergency Medicine; Emergency Provider Emergency Medicine; PCP Nurse Practitioner
DX: R10.30 Lower abdominal pain, unspecified (principal); R05.9 Cough, unspecified; Z87.19 Personal history of other diseases of the digestive system; Z98.890 Other specified postprocedural states
CPT/HCPCS: 0241U; 36415; 71045; 74176; 74230; 80053; 83690; 85025; 92611; 93005; 96374; 96375; 99284; J1171; J2405

== ENCOUNTER 2024-11-25 13:05 | Emergency (ER) | payer MEDICARE, OTHER, SELFPAY ==
[2024-09-08 03:55] VITALS: BMI 20.6
[2024-11-25] VITALS (15 sets, daily range): BP systolic 140–196; BP diastolic 67–102; PULSE 69–77; RESP 17–33; TEMP 36.7; O2SAT 81–98; BMI 18.9
--- NOTE | 2024-11-25 13:27 | EKG_ITS ---
[address] [address] Test Date: 2024-11-25 Pat Name: Bj Simon Department: Room: Gender: Male Cradle Placer: INESSA : 1935 Requested By: Order Number: [id number] Reading MD: Bubba Muñiz MD Measurements Intervals Brinson Rate: 71 P: MA: QRS: 59 QRSD: 190 T: 195 QT: 476 QTc: 517 Interpretive Statements Ventricular-paced rhythm with occasional premature ventricular complexes Electronically Signed On 11-25-2024 15:49:31 PDT by Bubba Muñiz MD
--- NOTE | 2024-11-25 13:46 | DI.RAD.S_ITS ---
PROCEDURE: XR CHEST 1V INDICATIONS: aspiration TECHNIQUE: One view of the chest was acquired. COMPARISON: [facility], CR, XR CHEST 1V, 11/01/2024, 19:12. FINDINGS: Surgical changes and devices: Abdominal surgical clips.. Lungs and pleura: Patchy bibasilar atelectasis. No pleural fluid. Mediastinum: Mediastinal contours appear normal. Heart size is normal. Bones and chest wall: No suspicious bony lesions. Overlying soft tissues appear unremarkable. IMPRESSION: Patchy bibasilar atelectasis. Dictated by: Wero Franklin M.D. on 11/25/2024 at 14:52 Approved by: Wero Franklin M.D. on 11/25/2024 at 15:11
[2024-11-25 13:59] LABS: Add Manual Diff / Slide Review NO; Basophils Absolute Auto 0 /uL (0-100); Basophils Percent Auto 0.4 % (0-2); Eosinophils Absolute Auto 100 /uL (0-450); Eosinophils Percent Auto 0.6 % (2-4); Hematocrit 36.2 % (41-53); Hemoglobin 12.3 g/dL (13.5-17.5); Lymphocytes Absolute Auto 800 /uL (1100-4500); Lymphocytes Percent Auto 8.7 % (25-40); Mean Corpuscular Hemoglobin 33.9 PG (26-34); Mean Corpuscular Volume 99.7 fL (80-100); Monocytes Absolute Auto 500 /uL (0-900); Neutrophils Absolute Auto 7500 /uL (1500-7000); Neutrophils Percent Auto 84.3 % (50-75); Platelet Count 175 X10^3/uL (150-400); Red Blood Cell Count 3.64 X10^6/uL (4.5-5.9); Red Cell Distribution Width 14.5 % (11.6-14.8); White Blood Cell Count 8.9 X10^3/uL (4.5-11.0)
[2024-11-25 14:11] LABS: Alanine Aminotransferase 15 IU/L (<50); Albumin 4.4 g/dL (3.5-5.0); Albumin Globulin Ratio 1.4 (1.0-2.8); Alkaline Phosphatase 108 U/L (38-126); Aspartate Aminotransferase 25 IU/L (17-59); Bilirubin Total 0.8 mg/dL (0.2-1.3); Blood Urea Nitrogen 28 mg/dL (9-20); Calcium 9.8 mg/dL (8.4-10.2); Carbon Dioxide 30 mmol/L (22-32); Chloride 101 mmol/L (98-107); Estimated Glomerular Filt Rate 55 mL/min (>60); Globulin 3.2 g/dL (1.7-4.1); Glucose 111 mg/dL (70-99); HEMOLYSIS < 15 (0-50); Magnesium 1.5 mg/dL (1.6-2.3); Sodium 139 mmol/L (137-145); Total Protein 7.6 g/dL (6.3-8.2)
[2024-11-25 14:20] LABS: NT-proBNP (BNP-Adult 18+) 9780 pg/mL (<450)
[2024-11-25] MEDS: SODIUM CHLORIDE 0.9% 1,000 ML 1000 ML IV (14:20)
[2024-11-25] MEDS: ALBUTEROL/IPRATROPIUM 3 ML AMPUL INH (17:43)
--- NOTE | 2024-11-25 18:12 | ED.GENADULT ---
HPI - General Adult General Chief complaint: Shortness of Breath/Dyspnea Stated complaint: cant keep liquids down trouble breathing Time Seen by Provider: 11/25/24 13:24 Source: patient and family Mode of arrival: Wheelchair History of Present Illness HPI narrative: 89-year-old gentleman with a history of cardiac disease, pacemaker placement, congestive heart failure, chronic atrial fibrillation and is anticoagulated on Eliquis with very large hiatal hernia trouble keeping liquids down. Reported that he had been vomiting all night was complaining of shortness of breath and chest pain this morning. Slight increasing cough and he stated the cough tasted like food. He is concerned that he has aspirated. He is scheduled to see surgeon next week to discuss options for his hiatal hernia. He may end up with a feeding tube so that a food clearly into the jejunum. Related Data Home Medications ?Medication ?Instructions ?Recorded ?Confirmed allopurinol 100 mg tablet 100 mg PO DAILY ##0 07/28/12 09/08/24 ascorbic acid (vitamin C) 1,000 mg 1,000 mg PO DAILY ##0 08/03/12 09/08/24 tablet (Vitamin C) cholecalciferol (vitamin D3) 125 125 mcg PO DAILY ##0 08/03/12 09/08/24 mcg (5,000 unit) tablet (Vitamin D3) cyanocobalamin (vitamin B-12) 2,500 mcg sublingual DAILY ##0 08/03/12 09/08/24 2,500 mcg sublingual tablet (Vitamin B-12) apixaban 5 mg tablet (Eliquis) 5 mg PO BID 10/11/20 09/08/24 atorvastatin 40 mg tablet 40 mg PO BEDTIME 10/11/20 09/08/24 elderberry fruit 200 mg capsule 100 mg PO DAILY 10/11/20 09/08/24 pantoprazole 40 mg tablet,delayed 40 mg PO DAILY 10/11/20 09/08/24 release Previous Rx's ?Medication ?Instructions ?Recorded acetaminophen 325 mg capsule 650 mg (2 x 325 mg) PO QID PRN 10/30/20 (Tylenol) pain #60 caps acetaminophen 300 mg-codeine 30 mg 1 tab PO BID PRN pain #14 tabs 05/10/21 tablet ondansetron 4 mg disintegrating 4 mg PO Q6H PRN nausea and 03/13/25 tablet vomiting #10 tabs furosemide 20 mg tablet 20 mg PO DAILY #30 tabs 11/25/24 Allergies Allergy/AdvReac Type Severity Reaction Status Date / Time Sulfa (Sulfonamide Allergy Unknown RASH Verified 11/25/24 13:26 Antibiotics) trimethoprim Allergy Unknown RASH Verified 11/25/24 13:26 Review of Systems Review of Systems Narrative: General: Frail, older appearing able to speak in full sentences HEENT: Moist mucous membranes, normal sclera with reactive pupils, Respiratory: Lungs are clear to auscultation, no wheezing no rales no rhonchi. Full and symmetrical air movement Cardiac: Regular rate and rhythm no murmurs no bruits Abdomen: Soft, nontender, no rebound or guarding, no flank pain Skin: Warm and dry, no rashes Neurologic: Grossly neurologically intact with no obvious asymmetries or abnormalities Extremities: No trauma, well perfused Psych: Cooperative, appropriate insight and affect Patient History Medical History Alzheimers disease Skin cancer Easy bruisability Eczema Neuropathy Pain ANA MARIA (obstructive sleep apnea) Sinus drainage Pneumonia Afib Arthritis Vomiting Psoriasis GERD (gastroesophageal reflux disease) Gout Elevated blood-pressure reading without diagnosis of hypertension Contusion of left hand Abrasion of forehead Surgical History History of left knee replacement (~2007) History of repair of hiatal hernia (~2010) History of bladder surgery (1994) H/O inguinal hernia repair (~2007) S/P lumbar fusion Social History household members: spouse alcohol intake: never alcohol intake frequency: holidays/special occasions only Exam Initial Vital Signs Initial Vital Signs: Vital Signs Temperature 98.1 F 11/25/24 13:19 Pulse Rate 74 11/25/24 13:19 Respiratory Rate 17 11/25/24 13:19 Blood Pressure 140/77 11/25/24 13:19 Pulse Oximetry 96 11/25/24 13:19 Oxygen Delivery Method Room Air 11/25/24 13:19 Course Orders Ordered: ED Orders 11/25/24 13:45 Sputum Culture Stat 11/25/24 13:46 XR chest 1V Stat 11/25/24 13:47 EKG-12 Lead Stat 11/25/24 13:50 Complete Blood Count AUTO DIFF Stat Comprehensive Metabolic Panel Stat Magnesium Stat NT-proBNP (BNP-Adult 18+) Stat Troponin I Stat Discontinued Medications Albuterol/Ipratropium (Albuterol/Ipratropium 3 Ml Ampul) 3 ml INH NOW ONE Stop: 11/25/24 16:32 Last Admin: 11/25/24 17:43 Dose: 3 ml Documented By: MORENO Sodium Chloride (Normal Saline 0.9%) 1,000 mls @ 1,000 mls/hr IV BOLUS ONE Stop: 11/25/24 14:44 Last Infusion: 11/25/24 17:44 Dose: Infused Documented By: Admin: 11/25/24 14:20 Dose: 1,000 mls/hr Documented By: ITZ Vital Signs Vital signs: Vital Signs - 8 hr 11/25/24 13:19 11/25/24 14:19 11/25/24 14:19 Temperature 98.1 F Pulse Rate 74 77 Respiratory Rate 17 29 H Blood Pressure 140/77 148/82 H Pulse Oximetry 96 92 Oxygen Delivery Method Room Air Medical Decision Making Lab Data 11/25/24 13:50 11/25/24 13:50 Labs: Lab Results 11/25/24 Range/Units 13:50 WBC 8.9 (4.5-11.0) X10^3/uL RBC 3.64 L (4.5-5.9) X10^6/uL Hgb 12.3 L (13.5-17.5) g/dL Hct 36.2 L (41-53) % MCV 99.7 (80-100) fL MCH 33.9 (26-34) PG MCHC 34.0 (30-36) % RDW 14.5 (11.6-14.8) % Plt Count 175 (150-400) X10^3/uL Neut % (Auto) 84.3 H (50-75) % Lymph % (Auto) 8.7 L (25-40) % Taylor % (Auto) 6.0 (3-14) % Eos % (Auto) 0.6 L (2-4) % Baso % (Auto) 0.4 (0-2) % Neut # (Auto) 7500 H (1987-0272) /uL Lymph # (Auto) 800 L (6774-2312) /uL Taylor # (Auto) 500 (0-900) /uL Eos # (Auto) 100 (0-450) /uL Baso # (Auto) 0 (0-100) /uL Sodium 139 (137-145) mmol/L Potassium 5.0 (3.4-5.1) mmol/L Chloride 101 (98-107) mmol/L Carbon Dioxide 30 (22-32) mmol/L BUN 28 H (9-20) mg/dL Creatinine 1.27 H (0.66-1.25) mg/dL Estimated GFR 55 L (>60) mL/min BUN/Creatinine Ratio 22.0 (6-22) Glucose 111 H (70-99) mg/dL Calcium 9.8 (8.4-10.2) mg/dL Magnesium 1.5 L (1.6-2.3) mg/dL Total Bilirubin 0.8 (0.2-1.3) mg/dL AST 25 (17-59) IU/L ALT 15 (<50) IU/L Alkaline Phosphatase 108 (38-126) U/L Troponin I 0.110 H (0.01-0.034) ng/mL NT-Pro-B Natriuret Pep 9780 H (<450) pg/mL Total Protein 7.6 (6.3-8.2) g/dL Albumin 4.4 (3.5-5.0) g/dL Globulin 3.2 (1.7-4.1) g/dL Albumin/Globulin Ratio 1.4 (1.0-2.8) MDM Narrative Medical decision making narrative: CC: Central chest pain, shortness of breath concern for aspiration Complicating co-morbidities: Large hiatal hernia that is making it hard to keep any liquids or solids down, atrial fibrillation chronic with the anticoagulation, history of congestive heart failure Data collected from: patient Medical records reviewed: ER visit from September 26 with similar complaints reviewed Differential considered: Aspiration, pneumonia, congestive heart failure, acute coronary syndrome, viral etiology Exam documented above, pertinent findings include: Frail, skin shows multiple areas of skin cancers and sun damage, has some minor bibasilar crackles, no reproducible chest pain with palpation, abdomen is soft. He has bilateral AFOs in place Lab Test results independently reviewed as above. Pertinent findings: Chemistries show no new findings. Creatinine is 1.27 which is slightly down from his baseline CBC shows mild stable anemia at 12.3/36.2, unchanged, no leukocytosis BNP is elevated at 9780, comparison with similar presentation in August had BNP at 6508 Independently reviewed EKG: Paced rhythm at a rate of 71 occasional PVC Imaging studies independently reviewed: Chest x-ray shows no significant cardiomegaly, mild patchy basilar atelectasis similar to comparison and August Treatments: IV Lasix 80 mg Re-evaluations: Patient is increasing confused consistent with his Alzheimer's disease in the fact that he has been in the emergency department for 6 hours now. Discussion:89-year-old gentleman with increasing shortness a breath concern for aspiration last night increased cough does have a history of heart failure. He is given Lasix in the emergency department, he has questions about being unable to feel if he needs to go to the bathroom and I reassured him his urine was going to come out 1 way or the other. He wondered if he should wear pull-ups and I suggested he might consider this. I do not see furosemide on his list of medications, we will give him a prescription for 20 mg to continue daily. With his mild renal insufficiency I am not going to give him any potassium at this time. We will recommend he follow up with his primary care physician regarding heart failure, volume overload, urinary incontinence, urinary retention and help in deciding whether he needs to continue the Lasix. His primary care provider may want to recheck blood work to make sure renal function and potassium levels are appropriate. There was no indication for hospitalization at this time and he will be discharged Discharge Plan Departure Patient Disposition: Home Clinical Impression: Acute exacerbation of chronic heart failure, Elevated troponin Instructions: DI for Heart Failure Exacerbations Activity Restrictions/Additional Instructions: Thank you for coming in today Your blood work suggests no infection. Your chest x-ray does not show any evidence of aspiration or pneumonia It does look like you have some mild congestive heart failure, this is similar to when you were in the ER department in August. With the heart failure, you are collecting fluid in your lungs which is making you short of breath. I have given you 80 mg of IV furosemide in the emergency department, you will be going to the bathroom frequently tonight I have given you a prescription for oral furosemide, 20 mg daily. This will help get fluids out of your lungs and help with your overall shortness of breath You do need to schedule an appointment with your primary care physician in 1-2 weeks. We need to make sure that the fluid is coming out of the lungs, shortness for breath is improving and decide if and should continue with the furosemide. Your primary care doctor they recommend blood work to make sure your kidney function and potassium levels are okay with starting this diuretic. If you find that you are getting worse or develop any new symptoms, please feel free to return to the emergency department for further evaluation. Prescriptions: New furosemide 20 mg tablet 20 mg PO DAILY Qty: 30 0RF No Action allopurinol 100 MG tablet 100 mg PO DAILY Qty: 0 ascorbic acid (vitamin C) [Vitamin C] 1,000 mg Tablet 1,000 mg PO DAILY Qty: 0 cyanocobalamin (vitamin B-12) [Vitamin B-12] 2,500 mcg Tablet, Sublingual 2,500 mcg SUBLINGUAL DAILY Qty: 0 cholecalciferol (vitamin D3) [Vitamin D3] 125 mcg (5,000 unit) Tablet 125 mcg PO DAILY Qty: 0 pantoprazole 40 mg tablet,delayed release (DR/EC) 40 mg PO DAILY Eliquis 5 mg tablet 5 mg PO BID atorvastatin 40 mg tablet 40 mg PO BEDTIME elderberry fruit 200 mg capsule 100 mg PO DAILY acetaminophen [Tylenol] 325 mg capsule 650 mg PO QID PRN (Reason: pain) Qty: 60 0RF acetaminophen-codeine 300-30 mg tablet 1 tab PO BID PRN (Reason: pain) Qty: 14 0RF Rx Instructions: prescription 2 of 2 ondansetron 4 mg tablet,disintegrating 4 mg PO Q6H PRN (Reason: nausea and vomiting) Qty: 10 0RF Referrals: Martha Khanna ARNP [Primary Care Provider, Nursing] Stand Alone Forms: Patient Portal/API
[2024-11-25] MEDS: FUROSEMIDE 80 MG in SODIUM CHLORIDE 0.9% 50 ML 116 MG IV (18:55)
== END 2024-11-25 19:40 | disposition home or self-care (01) ==
PROVIDERS: Emergency Provider Emergency Medicine; PCP Nurse Practitioner
DX: I50.9 Heart failure, unspecified (principal); R79.89 Other specified abnormal findings of blood chemistry; G30.9 Alzheimer's disease, unspecified; F02.80 Dementia in other diseases classified elsewhere, unspecified severity, without behavioral disturbance, psychotic disturbance, mood disturbance, and anxiety; Z95.0 Presence of cardiac pacemaker; I48.20 Chronic atrial fibrillation, unspecified; Z79.01 Long term (current) use of anticoagulants
CPT/HCPCS: 71045; 80053; 83735; 83880; 84484; 85025; 93005; 96361; 96365; 99284; J1938